=== PATIENT | male | born 1945 | race Caucasian/White ===

== ENCOUNTER 2025-04-29 23:13 | Inpatient (IN) | payer MEDICARE, MEDICAID, SELFPAY ==
--- NOTE | ~2025-04-29 | FL_ITS ---
EXAMINATION: FL GUIDANCE ONLY HISTORY: ERCP COMPARISON: Correlation is made with an MRCP dated 04/30/2025. TECHNIQUE: Fluoroscopy time: 4 minutes, 22 seconds. Cumulative Dose: 52.768 mGy. DAP: 22.953 mGym2 Images: 3. FINDINGS: The initial image demonstrates a wire and contrast material in the common bile duct. There are numerous filling defects within a dilated common bile duct, consistent with the calculi seen on MRI. The final film demonstrates a stent in place. FL/FL guidance in OR IMPRESSION: Fluoroscopy during procedure. Please see procedure report for additional information. Electronically signed by: Darrick Yoder MD 05/04/2025 07:01 AM EDT
--- NOTE | ~2025-04-29 | XR_ITS ---
EXAMINATION: XR LUMBOSACRAL SPINE CLINICAL INFORMATION: low back pain, midline COMPARISON: No prior. Correlation made with CT abdomen and pelvis dated earlier same day. TECHNIQUE: Three views of the lumbosacral spine. FINDINGS: There is a minimal right convex scoliosis. There is a normal lordosis. Minimal superior endplate chronic appearing concavity of L4. No additional compression deformity or acute fracture. No suspicious bone lesion. There appear to have been laminectomies of L4 and L5. Minimal degenerative retrolisthesis L2 on L3 and L3 on L4. There is a 5 mm degenerative anterolisthesis of L5 on S1 with probable pars defects. Severe degenerative disc change at L5-S1 with sclerosis of the endplates. Moderate to severe disc degeneration L2-3, L3-4, and L4-5 with disc vacuum phenomenon. Extensive vascular calcifications are present. No aortic aneurysm. There are herniorrhaphy clips in the pelvis. There is contrast within the urinary bladder. There are right upper quadrant surgical clips. XR/XR lumbar spine 2-3V IMPRESSION: 1. No definite acute abnormality of the lumbar spine. 2. Advanced lumbar spondylosis. 3. There is a grade 1 spondylolisthesis L5-S1. 4. There is a mild chronic compression deformity of the superior endplate of L4. 5. There have been prior laminectomies at L4 and L5. Electronically signed by: Christopher Black MD 04/30/2025 10:47 AM EDT
--- NOTE | ~2025-04-29 | CT_ITS ---
CLINICAL HISTORY: fall, +HS, pain CT head without contrast Comparison: None provided Findings: There is age-appropriate atrophy. The size and shape of the ventricular system is within normal limits for this degree of atrophy. Mild areas of low-attenuation are seen within the periventricular and deep white matter. Salas-white differentiation is preserved. No midline shift or mass effect. No intracranial hemorrhage. No calvarial fractures. Mucosal thickening seen throughout the ethmoid air cells extending into the atelectatic right maxillary sinus. Mild mucosal thickening seen within the right aspect of the sphenoid sinus. IMPRESSION: 1. No fracture or intracranial hemorrhage. 2. Paranasal sinus disease as above. This document has been electronically signed by: Erasmo Rivas MD on 04/30/2025 01:03:42
--- NOTE | ~2025-04-29 | XR_ITS ---
CLINICAL HISTORY: chills, cough Chest X-ray, 2 Views COMPARISON: None provided FINDINGS: Left lower lung atelectasis or infiltrate. No pleural effusion. No pneumothorax. Cardiomegaly. No acute fracture. IMPRESSION: Left lower lung atelectasis or infiltrate. This document has been electronically signed by: Arthur Wilson MD on 04/30/2025 04:09:16
--- NOTE | ~2025-04-29 | CT_ITS ---
CLINICAL HISTORY: fall, +midline pain CT cervical spine without contrast Comparison: None provided Findings: No acute fracture or prevertebral soft tissue swelling. [id number] multilevel degenerative disc disease and degenerative facet disease throughout the cervical spine. Upper airway is patent. Fluid within the right mastoid air cells. Dense vascular calcification of the carotid arteries. No apical pneumothorax. IMPRESSION: No acute findings. This document has been electronically signed by: Erasmo Rivas MD on 04/30/2025 01:09:40
--- NOTE | ~2025-04-29 | US_ITS ---
EXAMINATION: US ABDOMEN LIMITED HISTORY: abn LFTS s/p smiley TECHNIQUE: Real-time grayscale ultrasound imaging of the liver and common bile duct was performed and images were reviewed. COMPARISON: Correlation is made with a CT of the abdomen with contrast 04/30/2025. FINDINGS: Liver: The liver is normal in size. The liver demonstrates increased echotexture, consistent with steatosis. No focal mass is seen. There is moderate intrahepatic biliary ductal dilatation There is normal hepatopedal flow in the portal vein. Gallbladder and biliary tree: The gallbladder is surgically absent. There is dilatation of the common bile duct measuring up to 2.0 cm in diameter. There is soft tissue density within the common bile duct which may represent sludge or a mass. Pancreas: The common bile duct in the region of the pancreatic head is distended with echogenic material. The pancreatic head, neck, and body are otherwise unremarkable. The pancreatic tail is obscured by bowel gas. The visualized pancreatic duct is normal in caliber. US/US abdomen limited IMPRESSION: Intra and extrahepatic biliary ductal dilatation. The common bile duct is distended with echogenic material which may represent sludge or a mass. ERCP is recommended. Electronically signed by: Darrick Yoder MD 04/30/2025 10:27 AM EDT
--- NOTE | ~2025-04-29 | CT_ITS ---
CLINICAL HISTORY: weakness, chills, fever, transaminitis CT abdomen and pelvis with contrast Comparison: None provided Findings: No consolidation or effusion. There are Bosniak 1 right renal cortical cysts, larger measuring 10.8 x 10.3 cm. There is intra and extrahepatic biliary tract dilatation without readily apparent etiology. Clinically appropriate follow-up recommended, possibly with gastroenterology consultation. There are no abnormal findings in the gallbladder fossa. Solid organs are within normal limits. No renal stones. No bowel obstruction, pneumoperitoneum, or pneumatosis. Pelvic contents unremarkable. Normal appendix. The bones are intact. IMPRESSION: Intra and extrahepatic biliary tract dilatation without readily apparent etiology. Clinically appropriate follow-up likely in consultation with gastroenterology, is recommended. This document has been electronically signed by: Gallo Plaza MD on 04/30/2025 07:54:16
--- NOTE | ~2025-04-29 | MR_ITS ---
EXAMINATION: MRCP protocol. CLINICAL INFORMATION: Intra and extrahepatic biliary ductal dilatation. Status post cholecystectomy. Concerning cholangitis. . TECHNIQUE: Axial and coronal T2 haste sequences. Axial and coronal T2 fat-sat haste sequences. Axial in and out of phase 3-D sequences. Coronal oblique T2 fat-sat single slice. MRCP radial T2 fat-sat sequences. COMPARISON: Correlated to ultrasound dated April 30, 2025. CT abdomen pelvis dated April 30, 2025. FINDINGS: Patient's motion artifact. There are numerous, different sizes, predominantly hypointense T2 signal abnormality lesions and some with intrinsic hyperintense T1 signal distributed throughout the dilated intrahepatic and extrahepatic biliary ductal system The maximum caliber of the common bile duct is 21 mm. The main pancreatic duct measures 2 mm in maximum caliber. Liver measures 19 cm. Spleen measures 13 cm. No nodular lesions in the right adrenal gland. There is soft tissue fullness in the left adrenal gland with drop off the signal from the in to the out of phase sequences. No hydronephrosis in either kidney. Multifocal different sizes well-defined round fluid signal characteristic lesions in both kidneys, the largest in the upper pole right kidney measures 13 cm. Hilar hernia, small to moderate size. No ascites. Small fat-containing umbilical hernia. No aneurysm, abdominal aorta. No intestinal obstruction pattern. Multilevel thoracolumbar spondylosis. Grade 1 anterolisthesis L5-S1 resulting in bilateral neuroforamina stenosis. Status post laminectomies from L3-4 to L5-S1 with dural ectasia. MR/MR MRCP IMPRESSION: Choledocholithiasis resulting in moderate to severe intra and extrahepatic biliary ductal dilatation. Bilateral renal cysts. Fat-containing umbilical hernia. No intestinal obstruction pattern. No gross ascites. Electronically signed by: Scooter Pride MD 04/30/2025 01:46 PM EDT
--- NOTE | 2025-04-29 23:16 | ED.FALL ---
HPI - Fall General Chief Complaint: Fall Stated Complaint: Fall, no heads strike/loc Time Seen by Provider: 04/29/25 23:16 Source: patient and EMS Mode of arrival: EMS Limitations: no limitations History of Present Illness ED Provider: Amy Meza NP HPI Narrative: Patient is an 80-year-old male who presents emergency department via EMS for evaluation. He states that this evening he felt as though he might have been a bit dehydrated had urinated prior to felt his urine was a bit dark. He was sitting on a kitchen chair he went to get up to get a glass of water he states that when he sat back down ?the chair came out from under me?. He reportedly fell backwards and towards the right side landing supine onto his back and striking his neck/head onto the corner of a cat litter box. He denies LOC or use of anticoagulants or known coagulation disorders. He does admit that just before this happened he was feeling very tremulous. EMS expressed concern that he was quite pale upon their arrival in significantly weak. He denies any headache, neck pain, dizziness or lightheadedness, chest pain, shortness of breath, nausea, vomiting. He admits to a history of chronic low back pain has had 2 prior surgeries approximately 15 years ago uncertain exactly what was performed, he admits to a history of radiculopathy. Related Data Home Medications ?Medication ?Instructions ?Recorded ?Confirmed acetaminophen 325 mg tablet 325 mg PO Q6H PRN Pain 04/30/25 04/30/25 aspirin 81 mg tablet 81 mg PO DAILY 04/30/25 04/30/25 ibuprofen 200 mg tablet (Advil) 200 mg PO Q8H PRN Pain 04/30/25 04/30/25 multivitamin 1 tab PO DAILY 04/30/25 04/30/25 Allergies Allergy/AdvReac Type Severity Reaction Status Date / Time Penicillins (PENICILLINS) Allergy Severe ANAPHYLAXIS Verified 04/29/25 23:33 penicillin V Allergy Unknown anaphylaxis Verified 04/29/25 23:33 Review of Systems Review of Systems: Yes all other systems are reviewed and are negative PMFSH Past Medical History Attestation statement: The following information was validated with the patient. Source: old records reviewed Social History Social History Household Members: Significant Other Housing: Apartment Do you presently have visiting nurse or other home services: No Alcohol intake: former Patient Tobacco Use Status: Former Tobacco user Advance Directives Date on File: 05/01/25 Physical Exam Vital Signs: Vital Signs: Last Vital Signs Temp 97.2 F 05/01/25 07:45 Pulse 60 05/01/25 07:45 Resp 18 05/01/25 07:45 BP 160/70 H 05/01/25 07:45 Pulse Ox 94 05/01/25 07:45 O2 Del Method Room Air 05/01/25 07:45 BMI result Body Mass Index 31.3 Appearance: Alert.?Oriented to person, place and time. No acute distress.?Normal affect. Head: Normocephalic Eyes: Pupils equal, round and reactive to light. EOMI. Conjunctiva and sclera normal? No Pereira sign noted. No raccoon eyes noted ENT: No septal hematoma, nares patent bilaterally. External auditory canal normal tympanic membrane pearly salas and intact bilaterally. Dentition normal, no fractured teeth. No lesions or lacerations of oropharynx. Uvula midline. Moist mucous membranes. Neck: Normal inspection.? Neck supple, palpable midline tenderness C4-C7 without appreciable step-offs or deformities. CVS: Heart sounds normal. Normal heart rate and rhythm.? Pulses normal.?? Respiratory: No respiratory distress.? Lung sounds clear to auscultation bilaterally?? Abdomen: Soft and non-tender. Normoactive bowel sounds. ?? Skin: Skin warm and dry.? Normal skin color.? Normal skin turgor.?? Extremities: No lower extremity edema.? Neuro: Moves all extremities spontaneously. Sensation intact bilaterally. CN II-XII intact. No focal neuro deficits. Course Reevaluation(s) Reevaluation #1: CBC is without leukocytosis he does however have left shift, has a very mild normocytic anemia that does not meet transfusion criteria, thrombocytopenia 142,000. No lactic acidosis. BNP of 186. Received call for critical troponin of 119.3, no active chest pain or shortness of breath, ECG revealing normal sinus rhythm with ventricular rate of 95, SANDY 204 MS, QTC 422 MS, no ST-elevation, no T-wave inversion. Time: 00:19 Reevaluation #2: head CT is without acute intracranial pathology. There was incidental finding of sinusitis. CT of the cervical spine without acute pathology. Viral serologies are negative. Chemistries have resulted, no electrolyte derangement, no RONNI. Has notable transaminitis with T bili 4.8, pending direct bili, AST/ALT of 257/279 alk-phos is 372 lipase is normal, benign abdominal examination, denies ETOH for many years, will check serum level, obtain CT of the abdomen and pelvis for further evaluation Time: 01:48 Reevaluation #3: Received call from lab regarding critical delta troponin positive at 344.8. Reviewed this with my attending Dr. Arellano will also reviewed EKG. Unlikely secondary to ACS, he denies any chest pain, denies shortness of breath. Repeat ECG revealing a sinus rhythm first-degree AV block SANDY 220 MS, ventricular rate of 85, CBC 442, moves without ST-elevation, T-wave inversion Will obtain 3rd troponin. Fever has resolved. No tachycardia. Pending at this time CXR, CT of the abdomen and pelvis in addition to urinalysis. Chest x-ray concerning possible infiltrate pending radiologist impression Time: 02:41 Additional Reevaluation(s): 02:58 - urinalysis concerning for urinary tract infection, associate microscopic hematuria, nitrite positive, has received levofloxacin. I reviewed CT imaging myself as well as my attending Dr. Mazariegos's, liver with abnormal appearance, concern for possible CBD dilation, I do not it directly appreciate the gallbladder, concern for potential surgical clips present, patient denies any prior abdominal surgeries such as cholecystectomy. He has to right renal cyst, one is pretty significant in size. Bladder appears distended, urinated post CT scan. 04:30 - Notified hopitalist of admission to medicine service, Dr. Ji. My attending Dr. Arellano aware awiting CT AP from radiology at this time Consultations Consultation #1: Attending note, Hussein Mathis MD:[id number], 04/30/2025 I assumed care of this patient at change of shift this morning. The patient had come in last night on the previous shift just before midnight. He had arrived by ambulance after a fall at home. Apparently he fell when he tried to stand up from a chair and then fell backwards. At that point his partner called 911. Apparently earlier in the evening the patient had had a 3 hour episode of shaking chills. His partner had encouraged him to come to the hospital at that time but the patient would not let her call an ambulance. The patient is also complaining of urinary discomfort. He additionally complains of chronic low back pain which he says is just above his sacrum. He says he has had this pain for a year or 2. The patient is evaluation by the previous team revealed the possibility of a UTI and possibly also a pneumonia. He had had a normal white count of 10.7 but a left shift of 95.3% neutrophils. Blood cultures were obtained as was a urine sample. He was treated with 750 mg of IV levofloxacin. Other findings on his workup included a rising troponin level but normal EKGs. He has not had any chest pain at any time. Additionally he was noted to have abnormal LFTs with a total bilirubin of 4.8, direct bilirubin 03.2, AST 257, ALT to 79, and an alk-phos of 372. A CT scan of the abdomen and pelvis was done to evaluate these abnormal LFTs. The results of the CT scan were not available during the overnight shift and therefore this CT scan result was signed out to me. I have looked at the images and it seems as though there are surgical clips in the gallbladder fossa. However the patient denies having had a cholecystectomy or at least has no memory of having a cholecystectomy. On exam he is tender in the right upper quadrant. 0848: Case discussed with the radiologist who read the CAT scan. The patient has evidence of a surgical cholecystectomy. No evidence of choledocholithiasis on CAT scan. Case discussed with Dr. Silva of Gastroenterology. We will order an ultrasound as the next step. Case presented to the hospitalist service and the patient will be admitted to telemetry because of the elevated troponins. I think the elevated troponins are secondary to the patient's other conditions. His EKGs are unremarkable and he has no chest pain. Medications Administered Generic Name Dose Route Start Last Admin Trade Name Freq PRN Reason Stop Dose Admin Aspirin 81 mg 04/30/25 11:25 05/01/25 08:39 Aspirin 81 Mg Tab.Chew PO 81 mg DAILY COLIN Administration Heparin Sodium (Porcine) 4,000 unit 04/30/25 10:34 05/01/25 01:23 Heparin Sodium,Porcine 5,000 Unit/Ml Vial 40 unit/kg (4000 unit) 4,000 unit IVPUSH Administration PROTOCOL BOLUS PRN 40 unit/kg - Heparin Protocol Protocol Lactated Ringer's 1,000 mls @ 100 mls/hr 04/30/25 09:15 05/01/25 08:39 Lr IVCONT 100 mls/hr .Q10H COLIN Administration Levofloxacin 750 mg in 150 mls @ 100 mls/hr 04/30/25 23:30 05/01/25 03:42 Levaquin IV Infused Q24H COLIN Infusion Metronidazole 500 mg in 100 mls @ 100 mls/hr 04/30/25 15:00 05/01/25 08:21 Flagyl IV Infused Q8H COLIN Infusion Heparin Sodium/Sodium Chloride 25,000 unit in 250 mls @ 0 mls/hr 04/30/25 10:45 05/01/25 08:47 Heparin Sodium,Porcine/1/2ns IVCONT 12.11 units/kg/hr .Q0M COLIN 11.97 mls/hr Protocol Administration Per Protocol Multivitamins/Vitamin C 1 tab 05/01/25 09:00 05/01/25 08:39 Multivitamin Tablet PO 1 tab DAILY COLIN Administration Sodium Chloride 3 ml 04/30/25 16:00 05/01/25 07:56 0.9 % Sodium Chloride Flush 3 Ml Syringe IVFLUSH Not Given QSHIFT COLIN Discontinued Medications Generic Name Dose Route Start Last Admin Trade Name Freq PRN Reason Stop Dose Admin Acetaminophen 975 mg 04/29/25 23:30 04/29/25 23:50 Acetaminophen 325 Mg Tablet PO 04/29/25 23:31 975 mg ONCE ONE Administration Enoxaparin Sodium 40 mg 04/30/25 09:15 04/30/25 09:27 Enoxaparin Sodium 40 Mg/0.4 Ml Syringe SUBCUT 40 mg Q24H COLIN Administration Heparin Sodium (Porcine) 4,000 unit 04/30/25 10:34 04/30/25 12:14 Heparin Sodium,Porcine 5,000 Unit/Ml Vial IVPUSH 04/30/25 10:35 4,000 unit ONCE ONE Administration Sodium Chloride 2,190 mls @ 2,190 mls/hr 04/29/25 23:34 04/30/25 02:06 Ns IV 04/30/25 00:33 Infused .Q1H STA Infusion Levofloxacin 750 mg in 150 mls @ 100 mls/hr 04/29/25 23:36 04/30/25 01:35 Levaquin IV 04/30/25 01:05 Infused ONCE ONE Infusion Metronidazole 500 mg in 100 mls @ 100 mls/hr 04/30/25 07:43 04/30/25 09:26 Flagyl IV 04/30/25 08:42 Infused ONCE ONE Infusion Iohexol 85 ml 04/30/25 02:57 04/30/25 02:57 Iohexol 350 Mg/Ml 100 Ml Infus..Btl IV 04/30/25 02:58 85 ml ONCE ONE Administration Metoprolol Tartrate 50 mg 04/30/25 10:37 04/30/25 12:14 Metoprolol Tartrate 50 Mg Tablet PO 04/30/25 10:38 50 mg ONCE ONE Administration Protocol Medical Decision Making Medical Decision Making [facility] Narrative: Patient is an 80-year-old male with reported past medical history of chronic low back pain, radiculopathy, hypertension who presents emergency department for evaluation after a reportedly mechanical fall as per HPI. However he was tremulous prior to its onset felt as though he may have been dehydrated. On arrival to emergency department he is warmth to the touch, tachycardic, he is non diaphoretic. Although he denied any headache or neck pain, on physical examination he did have midline tenderness C4-C7 without appreciable step-offs or deformities. He was placed in a hard cervical spine collar at this time. Plan to obtain CT of the head and cervical spine to exclude ICH, SDH, skull fracture, cervical spine fracture/subluxation. Sepsis alert was called at 23: 30 as he is febrile and tachycardic concern for potentially genitourinary etiology, though denies overt has a your symptoms he has ongoing back pain, he has a cigarette smoker admits to a chronic cough without acute change, potentially could be respiratory in nature, may have undiagnosed COPD no use of inhalers. Abdominal examination is benign. Sepsis fluid bolus ordered based on ideal body weight secondary to obesity, . Antibiotic coverage with Levaquin. I received sign-out from my colleague GORDON Meza -patient's troponins has gradually been getting elevated. Patient states that he has no chest pain or shortness of breath at all. No significant EKG changes from arrival. There are no previous EKGs for comparison. Also, on patient's labs, patient has elevated LFTs. The CT scan of his abdomen shows surgical clips. Patient is adamant that he has no history of cholecystectomy, radiology report of the abdomen pending. Chest x-ray from earlier today shows left lower lobe atelectasis or infiltrate, for which she was already covered with Levaquin. Also, patient has a UTI, Levaquin will cover for UTI as well. Patient's blood pressure stable, 159/74. Pulse 84, no fever. 98.6. At this time, 07:00, CT scan radiology report is still pending. Sign-out given to my colleague Dr. aMthis Differential Diagnosis Differential Diagnoses: The differential diagnosis associated with the presentation includes (See narrative above) Admission/Observation Consideration of admission/observation: Escalation of care including admission/observation considered (See narrative above) Lab Data MDM Lab Attestation statement: I reviewed the patient's lab results. 05/01/25 06:25 05/01/25 06:25 Labs: Lab Results 04/29/25 04/30/25 04/30/25 Range/Units 23:44 00:01 02:03 WBC 10.7 (4.8-10.8) X10*3/uL RBC 4.06 L (4.60-5.80) X10*6/uL Hgb 13.0 L (14.0-18.0) g/dl Hct 37.3 L (42.0-52.0) % MCV 91.9 (80.0-98.0) fL MCH 32.0 (27.0-33.0) pg MCHC 34.9 (31.0-36.0) g/dl RDW 13.3 (11.0-16.0) % Plt Count 142 L (160-400) X10*3/uL MPV 10.3 (9.4-12.4) fL Immature Gran % (Auto) 0.3 (0.0-0.4) % Neut % (Auto) 95.3 H (45-73) % Lymph % (Auto) 2.4 L (20-40) % [place] % (Auto) 1.7 L (2-11) % Eos % (Auto) 0.1 (0-4) % Baso % (Auto) 0.2 (0-2) % Lymph # (Auto) 0.3 L (1.2-4.9) X10*3/uL [place] # (Auto) 0.2 (0.1-1.2) X10*3/uL Eos # (Auto) 0.0 (0.0-0.4) X10*3/uL Baso # (Auto) 0.0 (0.0-0.2) X10*3/uL Abs Immat Gran (auto) 0.03 (0.00-0.03) X10*3/uL Absolute Neuts (auto) 10.2 H (2.0-8.3) x10*3/uL Absolute Nucleated RBC 0.000 (0.0-0.012) X10*3/uL Nucleated RBC % (auto) 0.0 (0.0-0.2) /100WBC Smear Tech's Comments VERIFIED PT 13.5 H (10.9-12.4) SEC INR 1.2 H (0.9-1.1) Sodium 135 (135-145) mmol/L Potassium 4.2 (3.3-5.1) mmol/L Chloride 103 (96-108) mmol/L Carbon Dioxide 24 (22-29) mmol/L Anion Gap 12 (12-20) BUN 19 H (9-16) mg/dL Creatinine 0.87 (0.5-1.4) mg/dL Estim Creat Clear Calc 79.8 Estimated GFR > 60 Random Glucose 137 H (60-115) mg/dL Lactic Acid 1.7 (0.5-2.0) mmol/L Calcium 9.1 (8.4-10.2) mg/dL Magnesium 1.7 (1.6-2.6) mg/dL Total Bilirubin 4.8 H (0.0-1.0) mg/dL Direct Bilirubin 3.2 H (0.0-0.5) mg/dL AST 257 H (5-37) U/L ALT 279 H (0-40) U/L Alkaline Phosphatase 372 H (39-117) U/L Total Creatine Kinase (38-174) U/L Troponin I High Sens 119.3 H* 344.8 H* D (<3.5-35.0) ng/L C-Reactive Protein 4.46 H (< or = 0.50) mg/dL B-Natriuretic Peptide 186 H (<100) pg/mL Total Protein 6.6 (6.5-8.0) g/dL Albumin 3.7 (3.5-5.0) g/dL Lipase 17 (8-78) U/L Urine Color Urine Appearance Urine pH (5.0-9.0) Ur Specific [place] (1.005-1.025) Urine Protein (Neg-Trace) mg/dL Urine Glucose (UA) (Negative) mg/dL Urine Ketones (Negative) mg/dL Urine Blood (Negative) Urine Nitrite (Negative) Ur Leukocyte Esterase (Negative) Urine RBC (0-2) /HPF Urine WBC (0-5) /HPF Ur Squamous Epith Cells (0-2) /HPF Urine Bacteria (None Seen) Hyaline Casts (0-2) /LPF Ethyl Alcohol < 10 mg/dL Influenza Type A (PCR) NEGATIVE (Negative) Influenza Type B (PCR) NEGATIVE (Negative) RSV RNA Qual (PCR) NEGATIVE (Negative) SARS-CoV-2 RNA (RT-PCR) NEGATIVE (Negative) 04/30/25 04/30/25 Range/Units 02:36 04:18 WBC (4.8-10.8) X10*3/uL RBC (4.60-5.80) X10*6/uL Hgb (14.0-18.0) g/dl Hct (42.0-52.0) % MCV (80.0-98.0) fL MCH (27.0-33.0) pg MCHC (31.0-36.0) g/dl RDW (11.0-16.0) % Plt Count (160-400) X10*3/uL MPV (9.4-12.4) fL Immature Gran % (Auto) (0.0-0.4) % Neut % (Auto) (45-73) % Lymph % (Auto) (20-40) % [place] % (Auto) (2-11) % Eos % (Auto) (0-4) % Baso % (Auto) (0-2) % Lymph # (Auto) (1.2-4.9) X10*3/uL [place] # (Auto) (0.1-1.2) X10*3/uL Eos # (Auto) (0.0-0.4) X10*3/uL Baso # (Auto) (0.0-0.2) X10*3/uL Abs Immat Gran (auto) (0.00-0.03) X10*3/uL Absolute Neuts (auto) (2.0-8.3) x10*3/uL Absolute Nucleated RBC (0.0-0.012) X10*3/uL Nucleated RBC % (auto) (0.0-0.2) /100WBC Smear Tech's Comments PT (10.9-12.4) SEC INR (0.9-1.1) Sodium (135-145) mmol/L Potassium (3.3-5.1) mmol/L Chloride (96-108) mmol/L Carbon Dioxide (22-29) mmol/L Anion Gap (12-20) BUN (9-16) mg/dL Creatinine (0.5-1.4) mg/dL Estim Creat Clear Calc Estimated GFR Random Glucose (60-115) mg/dL Lactic Acid (0.5-2.0) mmol/L Calcium (8.4-10.2) mg/dL Magnesium (1.6-2.6) mg/dL Total Bilirubin (0.0-1.0) mg/dL Direct Bilirubin (0.0-0.5) mg/dL AST (5-37) U/L ALT (0-40) U/L Alkaline Phosphatase (39-117) U/L Total Creatine Kinase 94 (38-174) U/L Troponin I High Sens 439.8 H* (<3.5-35.0) ng/L C-Reactive Protein (< or = 0.50) mg/dL B-Natriuretic Peptide (<100) pg/mL Total Protein (6.5-8.0) g/dL Albumin (3.5-5.0) g/dL Lipase (8-78) U/L Urine Color Dark Yellow Urine Appearance Clear Urine pH 5.5 (5.0-9.0) Ur Specific [place] 1.025 (1.005-1.025) Urine Protein 30 (1+) H (Neg-Trace) mg/dL Urine Glucose (UA) Negative (Negative) mg/dL Urine Ketones Negative (Negative) mg/dL Urine Blood Large (3+) H (Negative) Urine Nitrite Positive H (Negative) Ur Leukocyte Esterase Small (1+) H (Negative) Urine RBC 11-20 H (0-2) /HPF Urine WBC 0-5 (0-5) /HPF Ur Squamous Epith Cells 3-5 (0-2) /HPF Urine Bacteria 1+ (None Seen) Hyaline Casts 0-2 (0-2) /LPF Ethyl Alcohol mg/dL Influenza Type A (PCR) (Negative) Influenza Type B (PCR) (Negative) RSV RNA Qual (PCR) (Negative) SARS-CoV-2 RNA (RT-PCR) (Negative) Independent Interpretation I performed an independent interpretation of an: EKG, Plain X-Ray and CT Scan (See course narrative) Radiology Impression Discussion of test interpretation with radiology: I have reviewed the radiologist's reading. Radiologist Impression: CT head without contrast Comparison: None provided Findings: There is age-appropriate atrophy. The size and shape of the ventricular system is within normal limits for this degree of atrophy. Mild areas of low-attenuation are seen within the periventricular and deep white matter. Salas-white differentiation is preserved. No midline shift or mass effect. No intracranial hemorrhage. No calvarial fractures. Mucosal thickening seen throughout the ethmoid air cells extending into the atelectatic right maxillary sinus. Mild mucosal thickening seen within the right aspect of the sphenoid sinus. IMPRESSION: 1. No fracture or intracranial hemorrhage. 2. Paranasal sinus disease as above. CT cervical spine without contrast Comparison: None provided Findings: No acute fracture or prevertebral soft tissue swelling. [id number] multilevel degenerative disc disease and degenerative facet disease throughout the cervical spine. Upper airway is patent. Fluid within the right mastoid air cells. Dense vascular calcification of the carotid arteries. No apical pneumothorax. IMPRESSION: No acute findings. Chest X-ray, 2 Views COMPARISON: None provided FINDINGS: Left lower lung atelectasis or infiltrate. No pleural effusion. No pneumothorax. Cardiomegaly. No acute fracture. IMPRESSION: Left lower lung atelectasis or infiltrate. Independent Historian Clinical information obtained from an independent historian. History obtained from or confirmed by: EMS Critical Care Time Critical Care Time Critical Care Time: Yes Total Critical Care Time: 60 Attestation: Time is exclusive of separately billable procedures. Time includes: direct patient care, patient reassessment, coordination of patient care, interpretation of data (laboratory data, pulse oximetry, CT abdomen and pelvis and chest xrays), review of patient's medical records, medical consultation and documentation of patient care. Procedures excluded from critical care time: central intravenous line placement and electrocardiography. Discharge Plan Discharge Clinical Impression: Acute cholangitis, Urinary tract infection, S/P cholecystectomy, Elevated troponin Patient Disposition: Admitted As Inpatient Interventions: Admission Worksheet (ED) Last Done: 04/30/25 14:50 Discharge Date/Time: 05/01/25 03:49
[2025-04-29 23:17] VITALS: BP 168/92; PULSE 110; O2SAT 96
[2025-04-29 23:30] VITALS: BP 146/53; PULSE 103; RESP 20; TEMP 39.2; O2SAT 100; BMI 31.3
--- NOTE | 2025-04-29 23:30 | ECG_ITS ---
Test Reason : tachycardia Blood Pressure : */* mmHG Vent. Rate : 95 BPM Atrial Rate : 95 BPM P-R Int : 204 ms QRS Dur : 106 ms QT Int : 336 ms P-R-T Axes : -17 -56 25 degrees QTcB Int : 422 ms Normal sinus rhythm Left anterior fascicular block Minimal voltage criteria for LVH, may be normal variant ( Carmelo product ) Abnormal ECG No previous ECGs available Referred By: Amy Meza Electronically Signed By: KARTHIK ACOSTA
[2025-04-29 23:51] LABS: Hematocrit 37.3 % (42.0-52.0); Hemoglobin 13.0 g/dl (14.0-18.0); Imm Gran Abs Auto 0.03 X10*3/uL (0.00-0.03); Imm Gran Pct Auto 0.3 % (0.0-0.4); Lymphocytes Absolute Auto 0.3 X10*3/uL (1.2-4.9); MANUAL DIFF FLAG SCAN; Mean Corpuscular HGB Conc 34.9 g/dl (31.0-36.0); Mean Corpuscular Hemoglobin 32.0 pg (27.0-33.0); Mean Corpuscular Volume 91.9 fL (80.0-98.0); NRBC Abs Auto 0.000 X10*3/uL (0.0-0.012); NRBC Pct Auto 0.0 /100WBC (0.0-0.2); Platelet Count 142 X10*3/uL (160-400); Red Blood Count 4.06 X10*6/uL (4.60-5.80); SCAN SMEAR FLAG 1; White Blood Count 10.7 X10*3/uL (4.8-10.8)
[2025-04-30] VITALS (17 sets, daily range): BP systolic 131–177; BP diastolic 48–75; PULSE 52–89; RESP 14–21; TEMP 36.2–37.9; O2SAT 93–98; BMI 30.9
[2025-04-30 00:01] LABS: INTERNATIONAL NORM RATIO 1.2 (0.9-1.1); Prothrombin Time 13.5 SEC (10.9-12.4)
[2025-04-30 00:15] LABS: B Type Natriuretic Peptide 186 pg/mL (<100)
[2025-04-30 00:22] LABS: Troponin-I High Sensitivity 119.3 ng/L (<3.5-35.0)
[2025-04-30 00:47] LABS: Resp Syncy Virus RNA Qual PCR NEGATIVE (Negative); SARS COV2 PCR INHOUSE NEGATIVE (Negative)
[2025-04-30 01:16] LABS: Alanine Aminotransferase 279 U/L (0-40); Albumin Level 3.7 g/dL (3.5-5.0); Alkaline Phosphatase 372 U/L (39-117); Anion Gap 12 (12-20); Aspartate Amino Transferase 257 U/L (5-37); Blood Urea Nitrogen 19 mg/dL (9-16); Carbon Dioxide 24 mmol/L (22-29); Chloride 103 mmol/L (96-108); Creatinine Clr Calc Pharmacy 79.8; Estimated Glomerular Filt Rate > 60; Lipase 17 U/L (8-78); Magnesium 1.7 mg/dL (1.6-2.6); Potassium 4.2 mmol/L (3.3-5.1); Sodium 135 mmol/L (135-145); Total Protein 6.6 g/dL (6.5-8.0)
[2025-04-30 01:23] LABS: Calcium 9.1 mg/dL (8.4-10.2)
[2025-04-30 02:37] LABS: Troponin-I High Sensitivity 344.8 ng/L (<3.5-35.0)
--- NOTE | 2025-04-30 02:40 | ECG_ITS ---
Test Reason : ELEVATED TROP Blood Pressure : */* mmHG Vent. Rate : 85 BPM Atrial Rate : 85 BPM P-R Int : 228 ms QRS Dur : 112 ms QT Int : 372 ms P-R-T Axes : 8 -32 35 degrees QTcB Int : 442 ms Sinus rhythm with 1st degree A-V block Possible Left atrial enlargement Left axis deviation Minimal voltage criteria for LVH, may be normal variant ( [place] product ) Abnormal ECG When compared with ECG of 29-Apr-2025 23:41, No significant change was found Referred By: Amy Meza Electronically Signed By: KARTHIK ACOSTA
[2025-04-30 02:46] LABS: Appearance Urine Clear; Glucose Urine UA Negative (Negative); PH 5.5 (5.0-9.0); Specific Gravity - Urine 1.025 (1.005-1.025); UMIC TRIGGER UACC YES
[2025-04-30] MEDS: iohexoL 350 MG/ML 100 ML INFUS..BTL 85 ML IV (02:57)
[2025-04-30 03:58] LABS: UACC Culture Trigger YES
[2025-04-30 04:54] LABS: Troponin-I High Sensitivity 439.8 ng/L (<3.5-35.0)
--- NOTE | 2025-04-30 06:32 | PC.NURSE ---
Patient BIBA for s/p fall evaluation with + head strike, no LOC, patient is not on blood thinners, fever, feeling dehydrated with dark, concentrated urine. On arrival to ED patient noted to have oral temp of 102.5 and tachy with hr 103. Patient refused c-collar for EMS, [facility], ED provider evaluated, explained to patient importance of neck immobilization with c-collar s/p post fall with head strike and risks. Patient agreeable with c-collar placement, c-collar applied by tghis expert medical writer. 20 G IV line establlished in L AC. Sepsis protocol initiated, labs drawn and revealed BNP of 186, critical troponin of 119.3, no active chest pain or shortness of breath, EKG with NSR, HR 95. Septic fluids of total of 2190 mL and Levofloxacin 750 mg IV completed, VSS. Repeat trop 344.8. Patient confines to deny chest pain/SOB. EKG completed at this time with no ischemic changes noted, HR 97. O2 Sat 97% RA. Urine sample collected and positive for UTI. CT scan of abdomen/pelvis completed, resport pending. Patient currently resting in stretcher bed, VSS, NSR on tower excavator operator [id number], no complaints of chest ,call isaac in reach, significant other at bedside.
--- NOTE | 2025-04-30 07:00 | CA_ITS ---
Transthoracic Echocardiogram Patient (Last, First, Middle): Bismark Holland, Gender: Male Date of : 1945 Age: 80 Procedure Date: 04/30/2025 Procedure Type: Transthoracic Echocardiogram Location: ER Height: 177.8 cm Weight: 98.88 kg BSA: 2.17 m2 Heart Rate: bpm BP: 177 / 72 mmHg Gear Repairer: TO Referring MD: Kimani Vazquez MD Symptoms: elevated troponin, to eval for rwma Study Quality: Fair/Contrast ECG Rhythm: Sinus Conclusions: - The left ventricular systolic function is low normal. The visually estimated ejection fraction is between 50-55%. - There is mild to moderate aortic valve regurgitation. - There is mild dilatation of the sinuses of Valsalva measuring 4.29 cm and mild dilatation of the ascending aorta measuring 4.00 cm. Findings Procedure Information Contrast agent, definity, is being given per protocol without apparent complications. Left Ventricle Mildly increased left ventricular cavity size. The left ventricular systolic function is low normal. The visually estimated ejection fraction is between 50-55%. There is no evidence of regional wall motion abnormalities. Diastolic function is normal for age. There is mild septal asymmetric hypertrophy. Right Ventricle Normal right ventricular cavity size and systolic function. Atria The left atrium is moderately dilated. The right atrium is normal in size. Aortic Valve There is a normal trileaflet aortic valve. There is mild calcification of the aortic valve. There is no aortic valve stenosis. There is mild to moderate aortic valve regurgitation. Mitral Valve There is mild mitral annular calcification. There is no mitral valve regurgitation. There is no mitral valve stenosis. Pulmonic Valve The pulmonic valve is likely normal. Tricuspid Valve There is no tricuspid valve regurgitation. Tricuspid regurgitation envelope is inadequate for calculation of right ventricular systolic pressure. Great Vessels There is mild dilatation of the sinuses of Valsalva measuring 4.29 cm and mild dilatation of the ascending aorta measuring 4.00 cm. Venous The inferior vena cava is normal in size and collapses greater than 50% with inspiration. Pericardium/Pleural There is no evidence of pericardial effusion. Prior Study Comparison No prior study available for comparison. Measurements 2D Linear Measurements IVSd: 1.13 0.6-0.9/0.6-1.0 cm LVIDd: 5.77 3.9-5.3/4.2-5.9 cm LVIDd Index: 2.66 2.4-3.2/2.2-3.1 cm/m2 LVIDs: 4.32 2.0-3.6 cm LVPWd: 0.96 0.7-1.1 cm LV Mass: 304.26 67-162/88-224 g LV Mass Index: 140.21 43-95/49-115 g/m2 LVOT Diam: 2.40 3.0+(-)1.3 cm 2D Systolic Function EF 4C: 40.10 >55% EF 2C: 44.60 >55% Mitral Valve MV Pk E: 0.41 MV PK A: 0.63 MV Decel Time: 279.00 E/A: 0.70 E'Lateral: 5.11 E'Medial: 5.00 E/E' Med: 8.10 E/E' Lat: 8.00 PHT: 82.00 MVA PHT: 2.68 Decel Ponce: 1.46 Aortic Valve AoV Pk Faisal: 1.91 AoV Mn Faisal: 1.25 AoV VTI: 0.37 AoV Pk Grad: 15.00 Aov Mn Grad: 7.00 PAM Cont.VTI: 2.93 AI Pk Faisal: 4.12 AI Ponce: 2.51 LVOT LVOT Pk Faisal: 1.01 LVOT Mn Faisal: 0.71 LVOT VTI: 0.24 LVOT Pk Grad: 4.00 LVOT Mn Grad: 2.00 LVOT Diam: 2.40 LVOT Area: 4.52 Diastolic Function MV Pk E: 0.41 MV Pk A: 0.63 E/A: 0.70 E'Medial: 5.00 E/E' Med: 8.10 E' Laterial: 5.11 E/E' Lat: 8.00 Right Ventricle TAPSE (mm): 27.00 TVS' Faisal: 15.00 Tricuspid Valve RA Press: 8.00 Great Vessels Aorta Sinus of Valsalva: 4.29 2.0-3.5 cm Ao Asc: 4.00 2.1-3.4 cm Updated in Other Vendor System with Status of Final Delfino Arguello MD electronically signed on 04/30/2025 12:41:08 PM with status of Final
--- NOTE | 2025-04-30 07:24 | PC.NURSE ---
Assumed care of pt approx 0700, resting comfortably in bed. Reports chronic back pain 02/11, denies any interventions at this time. at bedside, abdominal CT results pending.
[2025-04-30] MEDS: metroNIDAZOLE/NS 500 MG/100 ML PIGGYBACK 100 MG IV ×3 (08:15→22:28)
--- NOTE | 2025-04-30 09:10 | PM.IMHP ---
History of Present Illness Date of Service: 04/30/25 Chief Complaint: fall, chills The patient is a 80-year-old male who denies any significant past medical history and presents to the emergency room with what appears to be a mechanical fall. The patient states that after ambulating back from the bathroom while attempting to sit, his chair gave out and he fell backwards striking his back, head/neck. He denies any loss of consciousness. He denies any prodromal cardiac symptoms. Upon further questioning, the patient endorses chills on the evening prior to hospitalization. He reports chronic urinary frequency/urgency and denies any change. He reports feeling uneasy/queasy but denies any abdominal pain. He denies any diarrhea nausea or vomiting. He denies any prior history of cholecystectomy. He denies any history of heavy alcohol use, reporting that he has not drank in years. He denies any chest pain, shortness of breath. He denies any headache or neck pain. He does report lower back pain. In the emergency room his workup revealed the following: Chemistry showed obstructive jaundice with a total bilirubin of 4.8, AST 257, ALT 279, alk phos 372, INR 1.2; CBC showed no leukocytosis but he does have a left shift and bandemia. His troponins are elevated with initial value of 119 > 344 > 439; EKG without any acute ischemic changes; patient denying any anginal symptoms The patient was treated with the sepsis fluid bolus, IV Levaquin and IV Flagyl; the ED team has discussed his case with Gastroenterology. The patient will be admitted for further work up and treatment. Review of Systems Review of Systems: Negative except HPI/interval history. [facility] Social History Alcohol intake: former Smoked in Last 30 Days: Yes Use of substances other than those prescribed or required for medical reasons: No Advance Directives: Yes Advance Directives Information Provided: Yes Advance Directives on File: No Meds Allergies Allergy/AdvReac Type Severity Reaction Status Date / Time Penicillins (PENICILLINS) Allergy Severe ANAPHYLAXIS Verified 04/29/25 23:33 penicillin V Allergy Unknown anaphylaxis Verified 04/29/25 23:33 Active Medications: Current Medications Acetaminophen (Acetaminophen 325 Mg Tablet) 650 mg PO Q6H PRN PRN Reason: Pain, Mild 1-3,fever,headache Calcium Carbonate (Calcium Carbonate 750 Mg Tab.Chew) 750 mg PO Q4H PRN PRN Reason: Heartburn Enoxaparin Sodium (Enoxaparin Sodium 40 Mg/0.4 Ml Syringe) 40 mg SUBCUT Q24H [facility] Lactated Ringer's (Lr) 1,000 mls @ 100 mls/hr IVCONT .Q10H [place] Levofloxacin (Levaquin) 750 mg in 150 mls @ 100 mls/hr IV Q24H [facility] Metronidazole (Flagyl) 500 mg in 100 mls @ 100 mls/hr IV Q8H [facility] Magnesium Hydroxide (Milk Of Magnesia 30 Ml Oral.Susp) 30 ml PO DAILY PRN PRN Reason: Constipation Melatonin (Melatonin 3 Mg Tablet) 6 mg PO BEDTIME PRN PRN Reason: Insomnia Sodium Chloride (0.9 % Sodium Chloride Flush 3 Ml Syringe) 3 ml IVFLUSH QSHIFT [facility] Home Medications ?Medication ?Instructions ?Recorded ?Confirmed ?Last Taken ?Type acetaminophen 325 mg tablet 325 mg PO Q6H PRN Pain 04/30/25 04/30/25 Unknown History aspirin 81 mg tablet 81 mg PO DAILY 04/30/25 04/30/25 Unknown History ibuprofen 200 mg tablet (Advil) 200 mg PO Q8H PRN Pain 04/30/25 04/30/25 Unknown History multivitamin 1 tab PO DAILY 04/30/25 04/30/25 Unknown History Physical Exam Vital Signs and Narrative: Vital Signs: Last Vital Signs Temp 97.8 F 04/30/25 08:19 Pulse 68 04/30/25 08:19 Resp 16 04/30/25 08:19 BP 177/72 H 04/30/25 08:19 Pulse Ox 97 04/30/25 08:19 O2 Del Method Room Air 04/30/25 08:19 BMI result Body Mass Index 31.3 Const: Other: Constitutional - Awake and Alert, No apparent distress HEENT - PERRLA, EOMI, +scaleral icterus Cardiovascular - S1S2, RRR, No edema Respiratory - Normal lung expansion, Normal respiratory effort, No respiratory distress, CTA bilaterally Gastrointestinal - RUQ TTP without rebound;guarding - No CVA tenderness Extremities - no calf tenderness bilaterally, no swelling Musculoskeletal - TTP lumbar spine Skin - Warm/Dry; jaundiced Neurological - Alert & oriented x3, No focal deficit; no asterixis Psychological - Appropriate affect Results Labs 04/29/25 23:44 04/29/25 23:44 Labs: Laboratory Results - last 24 hr 04/29/25 04/30/25 04/30/25 23:44 00:01 02:03 MCV 91.9 MCH 32.0 MCHC 34.9 RDW 13.3 Plt Count 142 L MPV 10.3 Immature Gran % (Auto) 0.3 Neut % (Auto) 95.3 H Lymph % (Auto) 2.4 L [place] % (Auto) 1.7 L Eos % (Auto) 0.1 Baso % (Auto) 0.2 Lymph # (Auto) 0.3 L [place] # (Auto) 0.2 Eos # (Auto) 0.0 Baso # (Auto) 0.0 Abs Immat Gran (auto) 0.03 Absolute Neuts (auto) 10.2 H Absolute Nucleated RBC 0.000 Nucleated RBC % (auto) 0.0 Smear Tech's Comments VERIFIED PT 13.5 H INR 1.2 H Anion Gap 12 Estim Creat Clear Calc 79.8 Estimated GFR > 60 Random Glucose 137 H Lactic Acid 1.7 Calcium 9.1 Magnesium 1.7 Total Bilirubin 4.8 H Direct Bilirubin 3.2 H AST 257 H ALT 279 H Alkaline Phosphatase 372 H Total Creatine Kinase Troponin I High Sens 119.3 H* 344.8 H* D C-Reactive Protein 4.46 H B-Natriuretic Peptide 186 H Total Protein 6.6 Albumin 3.7 Lipase 17 Urine Color Urine Appearance Urine pH Ur Specific [place] Urine Protein Urine Glucose (UA) Urine Ketones Urine Blood Urine Nitrite Ur Leukocyte Esterase Urine RBC Urine WBC Ur Squamous Epith Cells Urine Bacteria Hyaline Casts Ethyl Alcohol < 10 Influenza Type A (PCR) NEGATIVE Influenza Type B (PCR) NEGATIVE RSV RNA Qual (PCR) NEGATIVE SARS-CoV-2 RNA (RT-PCR) NEGATIVE 04/30/25 04/30/25 02:36 04:18 MCV MCH MCHC RDW Plt Count MPV Immature Gran % (Auto) Neut % (Auto) Lymph % (Auto) [place] % (Auto) Eos % (Auto) Baso % (Auto) Lymph # (Auto) [place] # (Auto) Eos # (Auto) Baso # (Auto) Abs Immat Gran (auto) Absolute Neuts (auto) Absolute Nucleated RBC Nucleated RBC % (auto) Smear Tech's Comments PT INR Anion Gap Estim Creat Clear Calc Estimated GFR Random Glucose Lactic Acid Calcium Magnesium Total Bilirubin Direct Bilirubin AST ALT Alkaline Phosphatase Total Creatine Kinase 94 Troponin I High Sens 439.8 H* C-Reactive Protein B-Natriuretic Peptide Total Protein Albumin Lipase Urine Color Dark Yellow Urine Appearance Clear Urine pH 5.5 Ur Specific [place] 1.025 Urine Protein 30 (1+) H Urine Glucose (UA) Negative Urine Ketones Negative Urine Blood Large (3+) H Urine Nitrite Positive H Ur Leukocyte Esterase Small (1+) H Urine RBC 11-20 H Urine WBC 0-5 Ur Squamous Epith Cells 3-5 Urine Bacteria 1+ Hyaline Casts 0-2 Ethyl Alcohol Influenza Type A (PCR) Influenza Type B (PCR) RSV RNA Qual (PCR) SARS-CoV-2 RNA (RT-PCR) Assessment and Plan (1) Acute cholangitis: Status: Acute Plan 80 yo M who reports no chronic medical issue (on baby asa + MVI only) who presents after a mechanical fall, preceed by shaking chills. Work up in the ED is consistent with sepsis secondary to cholangitis + demand ischemia. 1. Severe Sepsis secondary to cholangitis (has RUQ pain, jaundice and fever) Meets sepsis criteria with Bandemia, fevers, tachycardia; severe features of hyperbilirubinemia IV levaquin/flagyl (PCN allergy - anaphylaxis documented) follow up cultures suspect will need MRCP/ERCP - d/w GI, recs for MRCP consult GI NPO for now IVF 2. Elevated trops likely type 2 PA from demand ischemia will check echo monitor on tele consult cardiology pt denying chest pain d/w cardiology and GI - will start IV heparin gtt (plan for ERCP Saturday), metoprolol, statin on hold, asa okay per GI 3. Elevated BP denies history of HTN; outpt notes from 2020 indicate he was on norvasc/hctz likely secondary to acute pain/illness monitor for now Full Code (d/w code status is patient and significant other) Endorses significant other has HCP (to complete formally with workers' compensation hearings officer/CM) DVT pptx - Lovenox Quality Stroke Does the patient have a stroke diagnosis?: No VTE Prior VTE?: No VTE Risk Level:: Medical - moderate - high VTE Device Contraindication: N/A - Device Ordered VTE Drug Contraindication: N/A - Med Ordered
[2025-04-30] MEDS: Lactated Ringers 1,000 ML 100 ML IVCONT ×2 (09:27→19:52)
--- NOTE | 2025-04-30 10:17 | PM.CNCAR ---
History of Present Illness History of Present Illness Date of Service: 04/30/25 Chief complaint: ? Cholangitis Narrative: This is a cardiology consultation regarding elevated troponins. Per admission documentation, reported as it came for a fall. It is mentioned that he was ambulating from the bathroom when attempting to sit, his Mitchell gave out and he fell backward striking his back and head and neck. Upon questioning him directly, he states that the main concern he had was that he was shaking constantly for almost 3 hours. Seems like he is describing rigors. When he 1st came in his temperature was quite high at over 102 degrees F. then it has improved. He has been evaluated and found to have obstructive jaundice and GI has been involved in his care. From the cardiac standpoint, troponins were checked and found to be elevated. Hence we are consulted. Patient denies any previous cardiac history. He denies any chest pains. He states that he lives in a 2nd floor hence can go up and down and has not had any issues like angina. Review of Systems Review of Systems: Yes all other systems are reviewed and are negative Constitutional: Constitutional: Reports as per HPI, Reports no additional constitutional complaints and Reports fever(s) Eyes: Eyes: Reports as per HPI and Denies no additional eye complaints ENT: Denies system reviewed and no additional complaints, except as documented and Reports as per HPI Cardiovascular: Cardiovascular: Reports as per HPI, Reports no additional cardiovascular complaints, Denies acrocyanosis, Denies cool extremities, Denies chest pain, Denies leg edema, Denies lightheadedness, Denies palpitations and Denies dyspnea Respiratory: Respiratory: Reports as per HPI, Denies no additional respiratory complaints and Denies dyspnea Gastrointestinal: Gastrointestinal: Reports as per HPI and Denies no additional gastrointestinal complaints Genitourinary: Genitourinary: Reports no additional male genitourinary complaints and Reports as per HPI Musculoskeletal: Musculoskeletal: Reports no additional musculoskeletal complaints and Reports as per HPI Integumentary/Breasts: Skin/Breast: Reports system reviewed and no additional complaints, except as docu Neurologic: Reports system reviewed and no additional complaints, except as documented and Reports as per HPI Psychiatric: Psychiatric: Reports no additional psychiatric complaints and Reports as per HPI Endocrine: Endocrine: Reports no additional endocrine complaints, Reports as per HPI and Denies palpitations Hematologic/Lymphatic: Hematologic/Lymphatic: Reports no additional hematologic/lymphatic complaints and Reports as per HPI Allergic/Immunologic: Allergic/Immunologic: Reports no additional allergic/immunologic complaints and Reports as per HPI [facility], [facility] Family History Pertinent family history: No pertinent family history Social History Social History Alcohol intake: former Smoked in Last 30 Days: Yes Use of substances other than those prescribed or required for medical reasons: No Advance Directives: Yes Advance Directives Information Provided: Yes Advance Directives on File: No Meds Allergies Allergy/AdvReac Type Severity Reaction Status Date / Time Penicillins (PENICILLINS) Allergy Severe ANAPHYLAXIS Verified 04/29/25 23:33 penicillin V Allergy Unknown anaphylaxis Verified 04/29/25 23:33 Active Medications: Current Medications Acetaminophen (Acetaminophen 325 Mg Tablet) 650 mg PO Q6H PRN PRN Reason: Pain, Mild 1-3,fever,headache Calcium Carbonate (Calcium Carbonate 750 Mg Tab.Chew) 750 mg PO Q4H PRN PRN Reason: Heartburn Enoxaparin Sodium (Enoxaparin Sodium 40 Mg/0.4 Ml Syringe) 40 mg SUBCUT Q24H COLIN Last Admin: 04/30/25 09:27 Dose: 40 mg Lactated Ringer's (Lr) 1,000 mls @ 100 mls/hr IVCONT .Q10H [facility] Last Admin: 04/30/25 09:27 Dose: 100 mls/hr Levofloxacin (Levaquin) 750 mg in 150 mls @ 100 mls/hr IV Q24H [facility] Metronidazole (Flagyl) 500 mg in 100 mls @ 100 mls/hr IV Q8H [facility] Magnesium Hydroxide (Milk Of Magnesia 30 Ml Oral.Susp) 30 ml PO DAILY PRN PRN Reason: Constipation Melatonin (Melatonin 3 Mg Tablet) 6 mg PO BEDTIME PRN PRN Reason: Insomnia Sodium Chloride (0.9 % Sodium Chloride Flush 3 Ml Syringe) 3 ml IVFLUSH QSHIFT COLIN Physical Exam Vital Signs: Vital Signs: Last Vital Signs Temp 97.8 F 04/30/25 08:19 Pulse 68 04/30/25 08:19 Resp 16 04/30/25 08:19 BP 177/72 H 04/30/25 08:19 Pulse Ox 97 04/30/25 08:19 O2 Del Method Room Air 04/30/25 08:19 BMI result Body Mass Index 31.3 Const: General: comfortable and no acute distress Orientation/consciousness: patient oriented x3 HEENT: Other: Unremarkable Head: Yes normal to inspection Neck: Neck: Yes normal visual inspection Chest: Chest palpation & inspection: normal inspection of the chest Resp: Auscultation: clear to auscultation bilaterally Cardio: Palpation: normal PMI Heart sounds: S1 normal heart sound present, S2 normal heart sound present, no gallops, no murmurs and no rubs GI: Palpation (GI): Soft to palpation Back/Spine/Pelvis: Other: unremarkable Skin: General skin exam: no rashes or lesions noted Neuro: General: patient oriented x3 Extrem: General: Yes normal to inspection Psych: Mental Status: mental status grossly normal Objective Labs and Meds 04/29/25 23:44 04/29/25 23:44 Lab results: Laboratory Results - last 24 hr 04/29/25 04/30/25 04/30/25 23:44 00:01 02:03 WBC 10.7 RBC 4.06 L Hgb 13.0 L Hct 37.3 L MCV 91.9 MCH 32.0 MCHC 34.9 RDW 13.3 Plt Count 142 L MPV 10.3 Immature Gran % (Auto) 0.3 Neut % (Auto) 95.3 H Lymph % (Auto) 2.4 L [place] % (Auto) 1.7 L Eos % (Auto) 0.1 Baso % (Auto) 0.2 Lymph # (Auto) 0.3 L [place] # (Auto) 0.2 Eos # (Auto) 0.0 Baso # (Auto) 0.0 Abs Immat Gran (auto) 0.03 Absolute Neuts (auto) 10.2 H Absolute Nucleated RBC 0.000 Nucleated RBC % (auto) 0.0 Smear Tech's Comments VERIFIED PT 13.5 H INR 1.2 H Sodium 135 Potassium 4.2 Chloride 103 Carbon Dioxide 24 Anion Gap 12 BUN 19 H Creatinine 0.87 Estim Creat Clear Calc 79.8 Estimated GFR > 60 Random Glucose 137 H Lactic Acid 1.7 Calcium 9.1 Magnesium 1.7 Total Bilirubin 4.8 H Direct Bilirubin 3.2 H AST 257 H ALT 279 H Alkaline Phosphatase 372 H Total Creatine Kinase Troponin I High Sens 119.3 H* 344.8 H* D C-Reactive Protein 4.46 H B-Natriuretic Peptide 186 H Total Protein 6.6 Albumin 3.7 Lipase 17 Urine Color Urine Appearance Urine pH Ur Specific [place] Urine Protein Urine Glucose (UA) Urine Ketones Urine Blood Urine Nitrite Ur Leukocyte Esterase Urine RBC Urine WBC Ur Squamous Epith Cells Urine Bacteria Hyaline Casts Ethyl Alcohol < 10 Influenza Type A (PCR) NEGATIVE Influenza Type B (PCR) NEGATIVE RSV RNA Qual (PCR) NEGATIVE SARS-CoV-2 RNA (RT-PCR) NEGATIVE 04/30/25 04/30/25 02:36 04:18 WBC RBC Hgb Hct MCV MCH MCHC RDW Plt Count MPV Immature Gran % (Auto) Neut % (Auto) Lymph % (Auto) [place] % (Auto) Eos % (Auto) Baso % (Auto) Lymph # (Auto) [place] # (Auto) Eos # (Auto) Baso # (Auto) Abs Immat Gran (auto) Absolute Neuts (auto) Absolute Nucleated RBC Nucleated RBC % (auto) Smear Tech's Comments PT INR Sodium Potassium Chloride Carbon Dioxide Anion Gap BUN Creatinine Estim Creat Clear Calc Estimated GFR Random Glucose Lactic Acid Calcium Magnesium Total Bilirubin Direct Bilirubin AST ALT Alkaline Phosphatase Total Creatine Kinase 94 Troponin I High Sens 439.8 H* C-Reactive Protein B-Natriuretic Peptide Total Protein Albumin Lipase Urine Color Dark Yellow Urine Appearance Clear Urine pH 5.5 Ur Specific [place] 1.025 Urine Protein 30 (1+) H Urine Glucose (UA) Negative Urine Ketones Negative Urine Blood Large (3+) H Urine Nitrite Positive H Ur Leukocyte Esterase Small (1+) H Urine RBC 11-20 H Urine WBC 0-5 Ur Squamous Epith Cells 3-5 Urine Bacteria 1+ Hyaline Casts 0-2 Ethyl Alcohol Influenza Type A (PCR) Influenza Type B (PCR) RSV RNA Qual (PCR) SARS-CoV-2 RNA (RT-PCR) ECG Interpretation: EKG with underlying sinus rhythm at VT of 228 milliseconds; possible left atrial enlargement; leftward axis; minimal criteria for LVH. Previous EKGs similar. Assessment and Plan (1) NSTEMI (non-ST elevated myocardial infarction): Status: Acute Plan Troponin levels are 119, 344 and 439. Clinically, he does not have chest pain. No prior cardiac history either. Suspect this is demand related NSTEMI in the setting of ? Cholangitis. We will get an echocardiogram for cardiac function assessment. If no contraindications and no immediate need for GI procedure, then IV heparin, aspirin, beta-blockers. As LFTs already high, hold statins. We will follow up with you. Procedures Date of Service Date of Service: 04/30/25
--- NOTE | 2025-04-30 10:48 | PHA.MEDREC ---
Addendum entered by Doreen Hein [facility] 04/30/25 11:10: Reviewed [facility] Original Note: Pharmacy Consult ? Medication Reconciliation Pharmacy has completed the medication reconciliation. Spoke with pt and he confirmed he is only taking Baby Aspirin and a Multivitamin once daily and alternates between Advil and Tylenol as needed for pain. Pt confirmed he was taking Amlodipine and Hydrochlorothiazide for HBP but states he has not had them for over a year due to loosing his PCP and never getting anew one.
--- NOTE | 2025-04-30 11:12 | PC.NURSE ---
Addendum entered by Elina Lopez RN 04/30/25 14:02: New weight obtained and pharmacy updated. Per pharmacy ok to start drip on weight present in order. Heparin gtt started and this RN accompanied pt to MRI. Scan completed and pt tolerated well. Original Note: Pt currently undergoing echo, pharmacy called to request weight clarification. Attempting to get weight after echo completion.
[2025-04-30 11:15] LABS: PTT Heparin Drip 34.3 SEC (53-77.9)
[2025-04-30] MEDS: Heparin Sodium,Porcine/1/2NS 25,000 UNIT/250 ML IV.SOLN 10 UNIT IVCONT (12:32)
--- NOTE | 2025-04-30 14:22 | P.CNGI_ITS ---
History of Present Illness Data of Consult Service Date: 04/30/25 Primary Care Provider: KEYON Denton HPI Reason for consult: ?cholangitis 80-year-old male w/ hx of HTN, who I am seeing for assessment for abn LFT and possible cholangitis He fell to the ground without LOC but has weakeness and couldn't get up. He denies chest pain, palptns, abdominal pain, diarrhea, nausea or vomiting. No hx of using alcohol or drugs His labs revealed Ua pos for bld and nitrites and abn LFT , rising troponin Imaging with dialted ducts and choledocholithiasis. LABS: total bilirubin of 4.8, AST 257, ALT 279, alk phos 372, INR 1.2; CBC showed no leukocytosis but he does have a left shift and bandemia. Review of Systems 2 Review of Systems: Constitutional : No Weight loss, No Fever, No Chills ENT/Mouth : No sore throat, No Rhinorrhea Eyes: No Swelling, No Redness Cardiovascular : No Chest Pain, No SOB, No Edema Respiratory : No Cough, No Sputum, No Wheezing Gastrointestinal : see HPI Genitourinary : NO Dysuria, No Urinary Frequency, No Hematuria, No Urgency Musculoskeletal : + back pain, No Myalgias, No Joint Swelling Skin : No Skin Lesions, No rash Neuro : No Weakness, No Numbness, No Dizziness, No Headache Psych : No Anxiety/Panic, No Depression Heme/Lymph: No Bruising, No Lymphadenopathy Endocrine : No Polyuria, No Polydipsia All other systems reviewed and are negative. [facility] Family History Pertinent family history: no Fh of biliary disease Social History Social History Alcohol intake: former Smoked in Last 30 Days: Yes Use of substances other than those prescribed or required for medical reasons: No Advance Directives: Yes Advance Directives Information Provided: Yes Advance Directives on File: No Meds Allergies Allergy/AdvReac Type Severity Reaction Status Date / Time Penicillins (PENICILLINS) Allergy Severe ANAPHYLAXIS Verified 04/29/25 23:33 penicillin V Allergy Unknown anaphylaxis Verified 04/29/25 23:33 Active Medications: Current Medications Acetaminophen (Acetaminophen 325 Mg Tablet) 650 mg PO Q6H PRN PRN Reason: Pain, Mild 1-3,fever,headache Aspirin (Aspirin 81 Mg Tab.Chew) 81 mg PO DAILY [facility] Last Admin: 04/30/25 12:14 Dose: 81 mg Calcium Carbonate (Calcium Carbonate 750 Mg Tab.Chew) 750 mg PO Q4H PRN PRN Reason: Heartburn Heparin Sodium (Porcine) (Heparin Sodium,Porcine 5,000 Unit/Ml Vial) 4,000 unit 40 unit/kg (4000 unit) IVPUSH PROTOCOL BOLUS PRN; Protocol PRN Reason: 40 unit/kg - Heparin Protocol Heparin Sodium (Porcine) (Heparin Sodium,Porcine 5,000 Unit/Ml Vial) 7,900 unit 80 unit/kg (7900 unit) IVPUSH PROTOCOL BOLUS PRN; Protocol PRN Reason: 80 unit/kg - Heparin Protocol Lactated Ringer's (Lr) 1,000 mls @ 100 mls/hr IVCONT .Q10H [facility] Last Admin: 04/30/25 09:27 Dose: 100 mls/hr Levofloxacin (Levaquin) 750 mg in 150 mls @ 100 mls/hr IV Q24H [facility] Metronidazole (Flagyl) 500 mg in 100 mls @ 100 mls/hr IV Q8H [facility] Heparin Sodium/Sodium Chloride (Heparin Sodium,Porcine/1/2ns) 25,000 unit in 250 mls @ 0 mls/hr IVCONT .Q0M [facility]; Protocol Last Admin: 04/30/25 12:32 Dose: 10.11 units/kg/hr, 10 mls/hr Magnesium Hydroxide (Milk Of Magnesia 30 Ml Oral.Susp) 30 ml PO DAILY PRN PRN Reason: Constipation Melatonin (Melatonin 3 Mg Tablet) 6 mg PO BEDTIME PRN PRN Reason: Insomnia Sodium Chloride (0.9 % Sodium Chloride Flush 3 Ml Syringe) 3 ml IVFLUSH QSHIFT [facility] Home Medications ?Medication ?Instructions ?Recorded ?Confirmed ?Last Taken ?Type acetaminophen 325 mg tablet 325 mg PO Q6H PRN Pain 04/30/25 Unknown History aspirin 81 mg tablet 81 mg PO DAILY 04/30/2504/05 Unknown History ibuprofen 200 mg tablet (Advil) 200 mg PO Q8H PRN Pain 04/30/25 04/30/25 Unknown History multivitamin 1 tab PO DAILY 04/30/2504/05 Unknown History Physical Exam 2 Vital Signs: Vital Signs: Last Vital Signs Temp 97.1 F 04/30/25 10:00 Pulse 69 04/30/25 12:14 Resp 16 04/30/25 10:00 BP 138/49 L 04/30/25 12:14 Pulse Ox 96 04/30/25 10:00 O2 Del Method Room Air 04/30/25 10:00 BMI result Body Mass Index 30.9 EXAM: GENERAL: The patient is well developed and nontoxic. VITAL SIGNS:see workflow HEENT: Nonicteric sclerae, PERRLA, EOMI. Oropharynx clear. Moist mucous membranes. Conjunctivae appear well perfused. No thyroid mass. CHEST: Chest wall is nontender. HEART: Regular rate and rhythm without murmurs. LUNGS: Clear to auscultation bilaterally. ABDOMEN: Soft, positive bowel sounds, tender ruq, no organomegaly.no flank tenderness SKIN: No rash, no excessive bruising, petechiae, or purpura. NEUROLOGIC: Cranial nerves II-XII intact without motor/sensory deficit. Psych: normal affect Results Labs 04/29/25 23:44 04/29/25 23:44 Labs: Short CBC 04/29/25 Range/Units 23:44 WBC 10.7 (4.8-10.8) X10*3/uL Hgb 13.0 L (14.0-18.0) g/dl Hct 37.3 L (42.0-52.0) % Plt Count 142 L (160-400) X10*3/uL BMP 04/29/25 23:44 Sodium 135 Potassium 4.2 Chloride 103 Carbon Dioxide 24 BUN 19 H Creatinine 0.87 Calcium 9.1 Cardiac Enzymes 04/30/25 Range/Units 04:18 Total Creatine Kinase 94 (38-174) U/L Liver Function 04/29/25 Range/Units 23:44 Total Bilirubin 4.8 H (0.0-1.0) mg/dL Direct Bilirubin 3.2 H (0.0-0.5) mg/dL AST 257 H (5-37) U/L ALT 279 H (0-40) U/L Alkaline Phosphatase 372 H (39-117) U/L Albumin 3.7 (3.5-5.0) g/dL Urine 04/30/25 Range/Units 02:36 Urine Color Dark Yellow Urine Appearance Clear Urine pH 5.5 (5.0-9.0) Ur Specific [place] 1.025 (1.005-1.025) Urine Protein 30 (1+) H (Neg-Trace) mg/dL Urine Glucose (UA) Negative (Negative) mg/dL Assessment and Plan (1) Acute cholangitis: Status: Acute Plan 1/ Acute cholangitis with possible UTI and NSTEMI, seems to be doing much better and more relaxed. MRCP with several filling defects of the bile duct PLAN: 1/ ok to take aspirin, can put on heparin 2/ plan for ERCP Saturday with possible EHL, maybe stent placement, hold heparin morning of the test--pt and partner asked about risks which were discussed also as well as option of IR and PTC stent, they both wanted to think about it. Primary team informed they wished to proceed [facility] erc[facility]. 3/ if worsens in meantime would transfer but this seems less likely as he seems to have responded quite well to ABX and fluids Procedures Date of Service Date of Service: 04/30/25
--- NOTE | 2025-04-30 17:39 | PC.NURSE ---
Pt ambulated to the bathroom x1 assist with wheeled walker, reports increasing lower back pain 06/13. Pt offered PRN pain medication but pt refused. Repositioned in bed, call isaac within reach.
[2025-04-30 18:52] LABS: PTT Heparin Drip 54.8 SEC (53-77.9)
[2025-05-01] VITALS (8 sets, daily range): BP systolic 132–201; BP diastolic 44–87; PULSE 52–63; RESP 16–19; TEMP 36.2–36.9; O2SAT 94–96
[2025-05-01 01:08] LABS: PTT Heparin Drip 49.6 SEC (53-77.9)
[2025-05-01] MEDS: metroNIDAZOLE/NS 500 MG/100 ML PIGGYBACK 100 MG IV ×3 (06:21→23:00)
[2025-05-01 06:57] LABS: INTERNATIONAL NORM RATIO 1.2 (0.9-1.1); Prothrombin Time 13.6 SEC (10.9-12.4)
[2025-05-01 07:18] LABS: Hematocrit 35.9 % (42.0-52.0); Hemoglobin 12.4 g/dl (14.0-18.0); Mean Corpuscular HGB Conc 34.5 g/dl (31.0-36.0); Mean Corpuscular Hemoglobin 32.0 pg (27.0-33.0); Mean Corpuscular Volume 92.5 fL (80.0-98.0); NRBC Abs Auto 0.000 X10*3/uL (0.0-0.012); NRBC Pct Auto 0.0 /100WBC (0.0-0.2); Platelet Count 119 X10*3/uL (160-400); Red Blood Count 3.88 X10*6/uL (4.60-5.80); White Blood Count 5.5 X10*3/uL (4.8-10.8)
[2025-05-01 07:23] LABS: Alanine Aminotransferase 162 U/L (0-40); Albumin Level 3.1 g/dL (3.5-5.0); Alkaline Phosphatase 267 U/L (39-117); Anion Gap 12 (12-20); Aspartate Amino Transferase 99 U/L (5-37); Blood Urea Nitrogen 15 mg/dL (9-16); Calcium 8.6 mg/dL (8.4-10.2); Carbon Dioxide 24 mmol/L (22-29); Chloride 106 mmol/L (96-108); Creatinine Clr Calc Pharmacy 106.2; Estimated Glomerular Filt Rate > 60; Potassium 3.8 mmol/L (3.3-5.1); Sodium 138 mmol/L (135-145); Total Protein 5.8 g/dL (6.5-8.0)
[2025-05-01 07:59] LABS: PTT Heparin Drip 59.5 SEC (53-77.9)
[2025-05-01] MEDS: Lactated Ringers 1,000 ML 100 ML IVCONT (08:39)
[2025-05-01] MEDS: Heparin Sodium,Porcine/1/2NS 25,000 UNIT/250 ML IV.SOLN 11.97 UNIT IVCONT (08:47)
[2025-05-01 09:38] LABS: Magnesium 1.8 mg/dL (1.6-2.6)
--- NOTE | 2025-05-01 09:43 | PM.PNCARD ---
Subjective Subjective Date of Service: 05/01/25 Interval history: Patient states that he feels fine. He does not have any complaints like chest pains or in fact any cardiac symptoms at all. Review of Systems Review of Systems Yes all other systems are reviewed and are negative Constitutional: Reports as per HPI and Reports no additional constitutional complaints Eyes: Reports as per HPI and Denies no additional eye complaints Denies system reviewed and no additional complaints, except as documented and Reports as per HPI Cardiovascular: Reports as per HPI, Reports no additional cardiovascular complaints, Denies acrocyanosis, Denies cool extremities, Denies chest pain, Denies leg edema, Denies lightheadedness, Denies palpitations and Denies dyspnea Respiratory: Reports as per HPI, Denies no additional respiratory complaints and Denies dyspnea Gastrointestinal: Reports as per HPI and Denies no additional gastrointestinal complaints Genitourinary: Reports no additional male genitourinary complaints and Reports as per HPI Musculoskeletal: Reports no additional musculoskeletal complaints and Reports as per HPI Skin/Breast: Reports system reviewed and no additional complaints, except as docu Reports system reviewed and no additional complaints, except as documented and Reports as per HPI Psychiatric: Reports no additional psychiatric complaints and Reports as per HPI Endocrine: Reports no additional endocrine complaints, Reports as per HPI and Denies palpitations Hematologic/Lymphatic: Reports no additional hematologic/lymphatic complaints and Reports as per HPI Allergic/Immunologic: Reports no additional allergic/immunologic complaints and Reports as per HPI Physical Exam Vital Signs: Last Vital Signs Temp 97.2 F 05/01/25 07:45 Pulse 60 05/01/25 07:45 Resp 18 05/01/25 07:45 BP 160/70 H 05/01/25 07:45 Pulse Ox 94 05/01/25 07:45 O2 Del Method Room Air 05/01/25 07:45 BMI result Body Mass Index 30.9 Const General: comfortable and no acute distress Orientation/consciousness: patient oriented x3 HEENT Other: Unremarkable Head: Yes normal to inspection Neck Neck: Yes normal visual inspection Chest Chest palpation & inspection: normal inspection of the chest Resp Auscultation: clear to auscultation bilaterally Cardio Palpation: normal PMI Heart sounds: S1 normal heart sound present, S2 normal heart sound present, no gallops, no murmurs and no rubs GI Palpation (GI): Soft to palpation Back/Spine/Pelvis Other: unremarkable Skin General skin exam: no rashes or lesions noted Neuro General: patient oriented x3 Extrem General: Yes normal to inspection Psych Mental Status: mental status grossly normal Objective Labs and Meds 05/01/25 06:25 05/01/25 06:25 Lab results: Laboratory Results - last 24 hr 04/30/25 04/30/25 05/01/25 11:02 18:33 00:47 WBC RBC Hgb Hct MCV MCH MCHC RDW Plt Count MPV Absolute Nucleated RBC Nucleated RBC % (auto) Hold Purple Top PT INR aPTT Heparin Protocol 34.3 L 54.8 D 49.6 L Sodium Potassium Chloride Carbon Dioxide Anion Gap BUN Creatinine Estim Creat Clear Calc Estimated GFR Random Glucose Calcium Magnesium Total Bilirubin AST ALT Alkaline Phosphatase Total Protein Albumin 05/01/25 05/01/25 05/01/25 06:25 07:31 07:37 WBC 5.5 RBC 3.88 L Hgb 12.4 L Hct 35.9 L MCV 92.5 MCH 32.0 MCHC 34.5 RDW 13.3 Plt Count 119 L MPV 11.0 Absolute Nucleated RBC 0.000 Nucleated RBC % (auto) 0.0 Hold Purple Top SEE NOTE PT 13.6 H INR 1.2 H aPTT Heparin Protocol 59.5 Sodium 138 Potassium 3.8 Chloride 106 Carbon Dioxide 24 Anion Gap 12 BUN 15 Creatinine 0.65 Estim Creat Clear Calc 106.2 Estimated GFR > 60 Random Glucose 82 Calcium 8.6 Magnesium 1.8 Total Bilirubin 2.4 H AST 99 H ALT 162 H Alkaline Phosphatase 267 H Total Protein 5.8 L Albumin 3.1 L Imaging Radiologist's impression: Impressions Abdomen Ultrasound 04/30/25 09:44 IMPRESSION: Intra and extrahepatic biliary ductal dilatation. The common bile duct is distended with echogenic material which may represent sludge or a mass. ERCP is recommended. Electronically signed by: Darrick Yoder MD 04/30/2025 10:27 AM EDT Lumbar Spine X-Ray 04/30/25 10:20 IMPRESSION: 1. No definite acute abnormality of the lumbar spine. 2. Advanced lumbar spondylosis. 3. There is a grade 1 spondylolisthesis L5-S1. 4. There is a mild chronic compression deformity of the superior endplate of L4. 5. There have been prior laminectomies at L4 and L5. Electronically signed by: Christopher Black MD 04/30/2025 10:47 AM EDT RP Cholangiopancreatography MRI 04/30/25 12:54 IMPRESSION: Choledocholithiasis resulting in moderate to severe intra and extrahepatic biliary ductal dilatation. Bilateral renal cysts. Fat-containing umbilical hernia. No intestinal obstruction pattern. No gross ascites. Electronically signed by: Scooter Pride MD 04/30/2025 01:46 PM EDT RP Progress Note: A&P Assessment and plan (1) NSTEMI (non-ST elevated myocardial infarction): Status: Acute Assessment and Plan: Echo-LVEF is 50-55%; [id number] aortic regurgitation with mild aortic dilatation. Troponin levels are 119, 344 and 439. Suspect demand related NSTEMI. Clinically, no chest pain. Plan for IV heparin/48 hours; aspirin; beta-blockers. Ischemic workup eventually but timing we will need to be decided as he also has acute cholangitis. (2) PVCs (premature ventricular contractions): Status: Acute Assessment and Plan: PVCs in very brief NSVT on telemetry. Beta-blockers as above should help. If he continues to have a lot of this, then probably amiodarone. (3) HTN (hypertension): Status: Acute Assessment and Plan: Resume amlodipine. Beta-blockers should help. If blood pressure still runs high, increase amlodipine dose and consider adding nitrates. (4) Acute cholangitis: Status: Acute Assessment and Plan: Plan for ERCP noted. Because of the NSTEMI, he will be considered to be at intermediate to high-risk. Time Spent With Patient Time: Total time managing care of this patient today ____ minutes. Progress Note: Quality Stroke Does the patient have a stroke diagnosis?: No Procedures Date of Service Date of Service: 05/01/25
[2025-05-01] MEDS: Magnesium Sulfate/H2O 2 GM/50 ML PIGGYBACK IV (10:06)
--- NOTE | 2025-05-01 11:53 | P.PNIM_ITS ---
Subjective Subjective Date of Service: 05/01/25 Interval History: seen and examined this morning follow up for NSTEMI, cholangitis awake, alert, feeling better, no abdominal pain, no chest pain brief NSVT on monitor this am, asymptomatic Constitutional Constitutional: Denies chills and Denies fever(s) Cardiovascular Cardiovascular: Denies chest pain, Denies palpitations and Denies dyspnea Respiratory Respiratory: Denies cough and Denies dyspnea Gastrointestinal Gastrointestinal: Denies nausea and Denies vomiting Endocrine Endocrine: Denies palpitations Physical Exam 2 Vital Signs: Vital Signs: Last Vital Signs Temp 98.0 F 05/01/25 11:37 Pulse 52 05/01/25 11:37 Resp 18 05/01/25 11:37 BP 154/69 H 05/01/25 11:37 Pulse Ox 94 05/01/25 11:37 O2 Del Method Room Air 05/01/25 11:37 BMI result Body Mass Index 30.9 Const: General: cooperative, alert and awake Nutritional Appearance: o verweight Orientation/consciousness: patient oriented x3 Resp: Effort & Inspection: normal respiratory effort, able to speak in complete sentences, no respiratory distress and no use of accessory muscles Cardio: Rate: bradycardic GI: Inspection: No distended Palpation (GI): Soft to palpation and nontender Neuro: General: patient oriented x3, moves all extremities and CN's II-XI intact bilaterally Objective Data Active Medications Acetaminophen (Acetaminophen 325 Mg Tablet) 650 mg PO Q6H PRN PRN Reason: Pain, Mild 1-3,fever,headache Amlodipine Besylate (Amlodipine Besylate 10 Mg Tablet) 10 mg PO DAILY [facility]; Protocol Aspirin (Aspirin 81 Mg Tab.Chew) 81 mg PO DAILY [facility] Last Admin: 05/01/25 08:39 Dose: 81 mg Documented By: SABINA Calcium Carbonate (Calcium Carbonate 750 Mg Tab.Chew) 750 mg PO Q4H PRN PRN Reason: Heartburn Heparin Sodium (Porcine) (Heparin Sodium,Porcine 5,000 Unit/Ml Vial) 4,000 unit 40 unit/kg (4000 unit) IVPUSH PROTOCOL BOLUS PRN; Protocol PRN Reason: 40 unit/kg - Heparin Protocol Last Admin: 05/01/25 01:23 Dose: 4,000 unit Documented By: TERRI Heparin Sodium (Porcine) (Heparin Sodium,Porcine 5,000 Unit/Ml Vial) 7,900 unit 80 unit/kg (7900 unit) IVPUSH PROTOCOL BOLUS PRN; Protocol PRN Reason: 80 unit/kg - Heparin Protocol Lactated Ringer's (Lr) 1,000 mls @ 100 mls/hr IVCONT .Q10H [facility] Last Admin: 05/01/25 08:39 Dose: 100 mls/hr Documented By: SABINA Levofloxacin (Levaquin) 750 mg in 150 mls @ 100 mls/hr IV Q24H [facility] Last Infusion: 05/01/25 03:42 Dose: Infused Documented By: ANTOIC Metronidazole (Flagyl) 500 mg in 100 mls @ 100 mls/hr IV Q8H [facility] Last Infusion: 05/01/25 08:21 Dose: Infused Documented By: SABINA Heparin Sodium/Sodium Chloride (Heparin Sodium,Porcine/1/2ns) 25,000 unit in 250 mls @ 0 mls/hr IVCONT .Q0M [facility]; Protocol Stop: 05/02/25 10:44 Last Admin: 05/01/25 08:47 Dose: 12.11 units/kg/hr, 11.97 mls/hr Documented By: SABINA Co-signed By: GHAZAL Magnesium Hydroxide (Milk Of Magnesia 30 Ml Oral.Susp) 30 ml PO DAILY PRN PRN Reason: Constipation Melatonin (Melatonin 3 Mg Tablet) 6 mg PO BEDTIME PRN PRN Reason: Insomnia Morphine Sulfate (Morphine Sulfate 4 Mg/Ml Cartridge) 4 mg IVPUSH Q4H PRN; Protocol PRN Reason: Pain, Severe (Pain Scale 7-10) Multivitamins/Vitamin C (Multivitamin Tablet) 1 tab PO DAILY [facility] Last Admin: 05/01/25 08:39 Dose: 1 tab Documented By: SABINA Sodium Chloride (0.9 % Sodium Chloride Flush 3 Ml Syringe) 3 ml IVFLUSH QSHIFT [facility] Last Admin: 05/01/25 07:56 Dose: Not Given Documented By: SABINA Non-Admin Reason: IV Running Labs 05/01/25 06:25 05/01/25 06:25 Labs: Laboratory Results - last 24 hr 04/30/25 05/01/25 05/01/25 18:33 00:47 06:25 MCV 92.5 MCH 32.0 MCHC 34.5 RDW 13.3 Plt Count 119 L MPV 11.0 Absolute Nucleated RBC 0.000 Nucleated RBC % (auto) 0.0 Hold Purple Top PT 13.6 H INR 1.2 H aPTT Heparin Protocol 54.8 D 49.6 L Anion Gap 12 Estim Creat Clear Calc 106.2 Estimated GFR > 60 Random Glucose 82 Calcium 8.6 Magnesium 1.8 Total Bilirubin 2.4 H AST 99 H ALT 162 H Alkaline Phosphatase 267 H Total Protein 5.8 L Albumin 3.1 L 05/01/25 05/01/25 07:31 07:37 MCV MCH MCHC RDW Plt Count MPV Absolute Nucleated RBC Nucleated RBC % (auto) Hold Purple Top SEE NOTE PT INR aPTT Heparin Protocol 59.5 Anion Gap Estim Creat Clear Calc Estimated GFR Random Glucose Calcium Magnesium Total Bilirubin AST ALT Alkaline Phosphatase Total Protein Albumin Microbiology Microbiology Results: Microbiology 04/30/25 00:01 Blood Culture - Preliminary Blood - Venous Prelim: GNR Gram Stain only 04/29/25 23:44 Blood Culture - Preliminary Blood - Venous No growth after 24 hours. Assessment and Plan (1) NSTEMI (non-ST elevated myocardial infarction): Status: Acute (2) Acute cholangitis: Status: Acute (3) Urinary tract infection: Status: Acute Plan 80 yo M who reports no chronic medical issue (on baby asa + MVI only) who presents after a mechanical fall, preceed by shaking chills. Work up in the ED is consistent with sepsis secondary to cholangitis + demand ischemia. Severe Sepsis secondary to cholangitis (RUQ pain, jaundice and fever) and GNR bacteremia Meets sepsis criteria with Bandemia, fevers, tachycardia; severe features of hyperbilirubinemia IV levaquin/flagyl (PCN allergy - anaphylaxis documented) follow up cultures MRCP showing choledocholithiasis resulting in moderate to severe intra and extrahepatic biliary ductal dilation plan for ERCP on Saturday, NPO at midnight saturday GI following continue clear liquids for now 1/2 BCx growing GNR - follow final culture results and sensitivities LFTs trending down, continue to follow Elevated trops type 2 FL from demand ischemia. no chest pain echo with no WMA seen by cardiology -continue IV heparin gtt x 48 hours, metoprolol, statin on hold for elevated LFTs, asa okay per GI NSVT brief run continue BB (starting with 50 mg this am, if HR stable will give additional dose of 25-50 mg this evening) check magnesium echo with preserved EF Elevated BP denies history of HTN; outpt notes from 2020 indicate he was on norvasc/hctz bp remains elevated continue norvasc and metoprolol Full Code Endorses significant other has HCP (to complete formally with wicker worker/CM) DVT pptx - Lovenox Requires ongoing inpatient stay for management of NSTEMI requiring heparin drip and plan for ERCP on Saturday for acute cholangitis Quality Stroke Does the patient have a stroke diagnosis?: No VTE Prior VTE?: No VTE Risk Level:: Medical - moderate - high VTE Device Contraindication: N/A - Device Ordered VTE Drug Contraindication: N/A - Med Ordered
[2025-05-01 14:34] LABS: PTT Heparin Drip 43.8 SEC (53-77.9)
--- NOTE | 2025-05-01 16:32 | MHC.CM.PN ---
Addendum entered by Sharri Lott 05/03/25 08:32: PT COMPLETED A NEW HCP NAMING HIS S/O, FERNANDO HARRIS, HIS AGENT. Original Note: PT SLEEPING ON AND OFF, INFORMATION OBTAINED PRIMARILY FROM S/OFERNANDO, AT BEDSIDE IT IS ONLY FERNANDO AND THE PT IN THE HOME HE IS INDEPENDENT WITH CARE AND HAS NO SERVICES HE USES A CANE FOR DME CM WILL DISCUSS A HCP WITH HIM WHEN HE IS AWAKE AND VISITORS HAVE LEFT PT HAS A NEW PT APPT SCHEDULED WITH CHEKO HUNT IN NOVEMBER DCP: HOME VIA FAMILY TRANSPORT
[2025-05-01 21:23] LABS: PTT Heparin Drip 58.7 SEC (53-77.9)
[2025-05-01] MEDS: Lactated Ringers 1,000 ML 75 ML IVCONT (22:55)
[2025-05-02] VITALS (11 sets, daily range): BP systolic 137–175; BP diastolic 61–76; PULSE 52–86; RESP 16–18; TEMP 36.4–37.3; O2SAT 92–96
[2025-05-02 03:19] LABS: PTT Heparin Drip 57.7 SEC (53-77.9)
[2025-05-02] MEDS: Heparin Sodium,Porcine/1/2NS 25,000 UNIT/250 ML IV.SOLN 13.95 UNIT IVCONT (03:36)
[2025-05-02] MEDS: metroNIDAZOLE/NS 500 MG/100 ML PIGGYBACK 100 MG IV ×3 (06:27→22:47)
[2025-05-02 07:06] LABS: Hematocrit 37.2 % (42.0-52.0); Hemoglobin 12.9 g/dl (14.0-18.0); Mean Corpuscular HGB Conc 34.7 g/dl (31.0-36.0); Mean Corpuscular Hemoglobin 32.0 pg (27.0-33.0); Mean Corpuscular Volume 92.3 fL (80.0-98.0); NRBC Abs Auto 0.000 X10*3/uL (0.0-0.012); NRBC Pct Auto 0.0 /100WBC (0.0-0.2); Platelet Count 143 X10*3/uL (160-400); Red Blood Count 4.03 X10*6/uL (4.60-5.80); White Blood Count 5.7 X10*3/uL (4.8-10.8)
[2025-05-02 07:26] LABS: Alanine Aminotransferase 129 U/L (0-40); Albumin Level 3.3 g/dL (3.5-5.0); Alkaline Phosphatase 265 U/L (39-117); Anion Gap 13 (12-20); Aspartate Amino Transferase 62 U/L (5-37); Blood Urea Nitrogen 10 mg/dL (9-16); Calcium 8.9 mg/dL (8.4-10.2); Carbon Dioxide 26 mmol/L (22-29); Chloride 105 mmol/L (96-108); Creatinine Clr Calc Pharmacy 111.3; Estimated Glomerular Filt Rate > 60; Potassium 3.8 mmol/L (3.3-5.1); Sodium 140 mmol/L (135-145); Total Protein 6.0 g/dL (6.5-8.0)
[2025-05-02] MEDS: 0.9 % Sodium Chloride Flush 3 ML SYRINGE IVFLUSH ×3 (09:27→23:57)
--- NOTE | 2025-05-02 10:31 | PM.PNCARD ---
Subjective Subjective Date of Service: 05/02/25 Interval history: Patient is lying comfortably. No chest pain or any other cardiac symptoms. Review of Systems Review of Systems Yes all other systems are reviewed and are negative Constitutional: Reports as per HPI and Reports no additional constitutional complaints Eyes: Reports as per HPI and Denies no additional eye complaints Denies system reviewed and no additional complaints, except as documented and Reports as per HPI Cardiovascular: Reports as per HPI, Reports no additional cardiovascular complaints, Denies acrocyanosis, Denies cool extremities, Denies chest pain, Denies leg edema, Denies lightheadedness, Denies palpitations and Denies dyspnea Respiratory: Reports as per HPI, Denies no additional respiratory complaints and Denies dyspnea Gastrointestinal: Reports as per HPI and Denies no additional gastrointestinal complaints Genitourinary: Reports no additional male genitourinary complaints and Reports as per HPI Musculoskeletal: Reports no additional musculoskeletal complaints and Reports as per HPI Skin/Breast: Reports system reviewed and no additional complaints, except as docu Reports system reviewed and no additional complaints, except as documented and Reports as per HPI Psychiatric: Reports no additional psychiatric complaints and Reports as per HPI Endocrine: Reports no additional endocrine complaints, Reports as per HPI and Denies palpitations Hematologic/Lymphatic: Reports no additional hematologic/lymphatic complaints and Reports as per HPI Allergic/Immunologic: Reports no additional allergic/immunologic complaints and Reports as per HPI Physical Exam Vital Signs: Last Vital Signs Temp 99.2 F 05/02/25 07:39 Pulse 65 05/02/25 07:39 Resp 18 05/02/25 07:39 BP 175/76 H 05/02/25 09:27 Pulse Ox 93 05/02/25 07:39 O2 Del Method Room Air 05/02/25 07:39 O2 Flow Rate 2 05/02/25 03:44 BMI result Body Mass Index 30.9 Const General: comfortable and no acute distress Orientation/consciousness: patient oriented x3 HEENT Other: Unremarkable Head: Yes normal to inspection Neck Neck: Yes normal visual inspection Chest Chest palpation & inspection: normal inspection of the chest Resp Auscultation: clear to auscultation bilaterally Cardio Palpation: normal PMI Heart sounds: S1 normal heart sound present, S2 normal heart sound present, no gallops, no murmurs and no rubs GI Palpation (GI): Soft to palpation Back/Spine/Pelvis Other: unremarkable Skin General skin exam: no rashes or lesions noted Neuro General: patient oriented x3 Extrem General: Yes normal to inspection Psych Mental Status: mental status grossly normal Objective Labs and Meds 05/02/25 06:33 05/02/25 06:33 Lab results: Laboratory Results - last 24 hr 05/01/25 05/01/25 05/02/25 14:16 20:53 03:05 WBC RBC Hgb Hct MCV MCH MCHC RDW Plt Count MPV Absolute Nucleated RBC Nucleated RBC % (auto) aPTT Heparin Protocol 43.8 L D 58.7 D 57.7 Sodium Potassium Chloride Carbon Dioxide Anion Gap BUN Creatinine Estim Creat Clear Calc Estimated GFR Random Glucose Calcium Total Bilirubin Direct Bilirubin AST ALT Alkaline Phosphatase Total Protein Albumin 05/02/25 06:33 WBC 5.7 RBC 4.03 L Hgb 12.9 L Hct 37.2 L MCV 92.3 MCH 32.0 MCHC 34.7 RDW 13.3 Plt Count 143 L MPV 10.9 Absolute Nucleated RBC 0.000 Nucleated RBC % (auto) 0.0 aPTT Heparin Protocol Sodium 140 Potassium 3.8 Chloride 105 Carbon Dioxide 26 Anion Gap 13 BUN 10 Creatinine 0.62 Estim Creat Clear Calc 111.3 Estimated GFR > 60 Random Glucose 90 Calcium 8.9 Total Bilirubin 1.4 H Direct Bilirubin 0.9 H AST 62 H ALT 129 H Alkaline Phosphatase 265 H Total Protein 6.0 L Albumin 3.3 L Progress Note: A&P Assessment and plan (1) NSTEMI (non-ST elevated myocardial infarction): Status: Acute Assessment and Plan: Echo-LVEF is 50-55%; [id number] aortic regurgitation with mild aortic dilatation. Troponin levels are 119, 344 and 439. Suspect demand related NSTEMI. Clinically, no chest pain. Plan for IV heparin/48 hours; aspirin; beta-blockers. Ischemic workup eventually, likely as outpatient. (2) PVCs (premature ventricular contractions): Status: Acute Assessment and Plan: Improved on telemetry. Continue beta-blockers. (3) HTN (hypertension): Status: Acute Assessment and Plan: On amlodipine/metoprolol. Blood pressure is still high. Add losartan 50 mg daily. (4) Acute cholangitis: Status: Acute Assessment and Plan: Plan for ERCP noted. Because of the NSTEMI, he will be considered to be at intermediate to high cardiac risk. Time Spent With Patient Time: Total time managing care of this patient today ____ minutes. Progress Note: Quality Stroke Does the patient have a stroke diagnosis?: No Procedures Date of Service Date of Service: 05/02/25
--- NOTE | 2025-05-02 11:41 | P.PNIM_ITS ---
Subjective Subjective Date of Service: 05/02/25 Interval History: seen and examined this morning follow up for cholangitis, NSTEMI, high blood pressure frequent urination overnight did not sleep well no abdominal pain Constitutional Constitutional: Denies chills and Denies fever(s) Physical Exam 2 Vital Signs: Vital Signs: Last Vital Signs Temp 99.2 F 05/02/25 07:39 Pulse 65 05/02/25 07:39 Resp 18 05/02/25 07:39 BP 175/76 H 05/02/25 10:54 Pulse Ox 93 05/02/25 07:39 O2 Del Method Room Air 05/02/25 07:39 O2 Flow Rate 2 05/02/25 03:44 BMI result Body Mass Index 30.9 Const: General: cooperative, alert and awake Nutritional Appearance: o verweight Orientation/consciousness: patient oriented x3 Resp: Effort & Inspection: normal respiratory effort, able to speak in complete sentences, no respiratory distress and no use of accessory muscles Cardio: Rate: bradycardic GI: Inspection: No distended Palpation (GI): Soft to palpation and nontender Neuro: General: patient oriented x3, moves all extremities and CN's II-XI intact bilaterally Objective Data Active Medications Acetaminophen (Acetaminophen 325 Mg Tablet) 650 mg PO Q6H PRN PRN Reason: Pain, Mild 1-3,fever,headache Amlodipine Besylate (Amlodipine Besylate 10 Mg Tablet) 10 mg PO DAILY [facility]; Protocol Last Admin: 05/02/25 09:27 Dose: 10 mg Documented By: LIZBET Aspirin (Aspirin 81 Mg Tab.Chew) 81 mg PO DAILY [facility] Last Admin: 05/02/25 09:27 Dose: 81 mg Documented By: LIZBET Calcium Carbonate (Calcium Carbonate 750 Mg Tab.Chew) 750 mg PO Q4H PRN PRN Reason: Heartburn Heparin Sodium (Porcine) (Heparin Sodium,Porcine 5,000 Unit/Ml Vial) 4,000 unit 40 unit/kg (4000 unit) IVPUSH PROTOCOL BOLUS PRN; Protocol PRN Reason: 40 unit/kg - Heparin Protocol Last Admin: 05/01/25 15:07 Dose: 4,000 unit Documented By: RICCIAV Heparin Sodium (Porcine) (Heparin Sodium,Porcine 5,000 Unit/Ml Vial) 7,900 unit 80 unit/kg (7900 unit) IVPUSH PROTOCOL BOLUS PRN; Protocol PRN Reason: 80 unit/kg - Heparin Protocol Levofloxacin (Levaquin) 750 mg in 150 mls @ 100 mls/hr IV Q24H [facility] Last Infusion: 05/02/25 03:06 Dose: Infused Documented By: LISANDRO-RAFAT Metronidazole (Flagyl) 500 mg in 100 mls @ 100 mls/hr IV Q8H [facility] Last Infusion: 05/02/25 07:32 Dose: Infused Documented By: LIZBET Losartan Potassium (Losartan Potassium 50 Mg Tablet) 50 mg PO DAILY [facility]; Protocol Last Admin: 05/02/25 10:54 Dose: 50 mg Documented By: LIZBET Magnesium Hydroxide (Milk Of Magnesia 30 Ml Oral.Susp) 30 ml PO DAILY PRN PRN Reason: Constipation Melatonin (Melatonin 3 Mg Tablet) 6 mg PO BEDTIME PRN PRN Reason: Insomnia Metoprolol Tartrate (Metoprolol Tartrate 50 Mg Tablet) 50 mg PO BID [facility]; Protocol Last Admin: 05/02/25 09:27 Dose: 50 mg Documented By: LIZBET Morphine Sulfate (Morphine Sulfate 4 Mg/Ml Cartridge) 4 mg IVPUSH Q4H PRN; Protocol PRN Reason: Pain, Severe (Pain Scale 7-10) Multivitamins/Vitamin C (Multivitamin Tablet) 1 tab PO DAILY [facility] Last Admin: 05/02/25 09:28 Dose: 1 tab Documented By: LIZBET Sodium Chloride (0.9 % Sodium Chloride Flush 3 Ml Syringe) 3 ml IVFLUSH QSHIFT [facility] Last Admin: 05/02/25 09:27 Dose: 3 ml Documented By: LIZBET Labs 05/02/25 06:33 05/02/25 06:33 Labs: Laboratory Results - last 24 hr 05/01/25 05/01/25 05/02/25 14:16 20:53 03:05 MCV MCH MCHC RDW Plt Count MPV Absolute Nucleated RBC Nucleated RBC % (auto) aPTT Heparin Protocol 43.8 L D 58.7 D 57.7 Anion Gap Estim Creat Clear Calc Estimated GFR Random Glucose Calcium Total Bilirubin Direct Bilirubin AST ALT Alkaline Phosphatase Total Protein Albumin 05/02/25 06:33 MCV 92.3 MCH 32.0 MCHC 34.7 RDW 13.3 Plt Count 143 L MPV 10.9 Absolute Nucleated RBC 0.000 Nucleated RBC % (auto) 0.0 aPTT Heparin Protocol Anion Gap 13 Estim Creat Clear Calc 111.3 Estimated GFR > 60 Random Glucose 90 Calcium 8.9 Total Bilirubin 1.4 H Direct Bilirubin 0.9 H AST 62 H ALT 129 H Alkaline Phosphatase 265 H Total Protein 6.0 L Albumin 3.3 L Microbiology Microbiology Results: Microbiology 04/29/25 23:44 Blood Culture - Preliminary Blood - Venous No growth after 48 hours. 04/30/25 Unknown Urine Culture - Final Urine clean catch - Clean Catch Midstream 04/30/25 00:01 Blood Culture - Preliminary Blood - Venous Prelim: GNR Gram Stain only Assessment and Plan (1) NSTEMI (non-ST elevated myocardial infarction): Status: Acute (2) Acute cholangitis: Status: Acute (3) HTN (hypertension): Status: Acute Plan 80 yo M who reports no chronic medical issue (on baby asa + MVI only) who presents after a mechanical fall, preceed by shaking chills. Work up in the ED is consistent with sepsis secondary to cholangitis + demand ischemia. Severe Sepsis secondary to cholangitis (RUQ pain, jaundice and fever) and GNR bacteremia Met sepsis criteria with Bandemia, fevers, tachycardia; severe features of hyperbilirubinemia continue IV levaquin/flagyl (PCN allergy - anaphylaxis documented) MRCP showing choledocholithiasis resulting in moderate to severe intra and extrahepatic biliary ductal dilation plan for ERCP on Saturday, Full liquids until midnight, then NPO GI following 1/2 BCx growing GNR - follow final culture results and sensitivities LFTs trending down, continue to follow Elevated trops due to type 2 PR from demand ischemia. no chest pain echo with no WMA seen by cardiology -continue IV heparin gtt x 48 hours, metoprolol, statin on hold for elevated LFTs, asa okay per GI will likely need outpatient ischemic workup Considered intermediate to high cardiac risk for planned procedure NSVT brief run lopressor 50 bid echo with preserved EF Elevated BP denies history of HTN; outpt notes from 2020 indicate he was on norvasc/hctz bp remains elevated continue norvasc and metoprolol, add losartan Full Code Endorses significant other has HCP DVT pptx - heparin drip, then hold chemoprophylaxis until after procedure Requires ongoing inpatient stay for management of NSTEMI requiring heparin drip and plan for ERCP on Saturday for acute cholangitis Quality Stroke Does the patient have a stroke diagnosis?: No VTE Prior VTE?: No VTE Risk Level:: Medical - moderate - high VTE Device Contraindication: N/A - Device Ordered VTE Drug Contraindication: N/A - Med Ordered
[2025-05-02] MEDS: traZODone HCL 25 MG HALFTAB PO (23:06)
[2025-05-03] VITALS (14 sets, daily range): BP systolic 136–184; BP diastolic 56–87; PULSE 53–94; RESP 16–28; TEMP 36.2–37.1; O2SAT 3–100
[2025-05-03] MEDS: metroNIDAZOLE/NS 500 MG/100 ML PIGGYBACK 100 MG IV ×3 (06:01→23:01)
[2025-05-03 07:02] LABS: Hematocrit 35.7 % (42.0-52.0); Hemoglobin 12.2 g/dl (14.0-18.0); Mean Corpuscular HGB Conc 34.2 g/dl (31.0-36.0); Mean Corpuscular Hemoglobin 31.9 pg (27.0-33.0); Mean Corpuscular Volume 93.2 fL (80.0-98.0); NRBC Abs Auto 0.000 X10*3/uL (0.0-0.012); NRBC Pct Auto 0.0 /100WBC (0.0-0.2); Platelet Count 157 X10*3/uL (160-400); Red Blood Count 3.83 X10*6/uL (4.60-5.80); White Blood Count 5.1 X10*3/uL (4.8-10.8)
[2025-05-03 07:09] LABS: PTT Heparin Drip 32.4 SEC (53-77.9)
[2025-05-03 07:17] LABS: Alanine Aminotransferase 107 U/L (0-40); Albumin Level 3.1 g/dL (3.5-5.0); Alkaline Phosphatase 254 U/L (39-117); Anion Gap 10 (12-20); Aspartate Amino Transferase 55 U/L (5-37); Blood Urea Nitrogen 10 mg/dL (9-16); Calcium 8.9 mg/dL (8.4-10.2); Carbon Dioxide 29 mmol/L (22-29); Chloride 105 mmol/L (96-108); Creatinine Clr Calc Pharmacy 98.6; Estimated Glomerular Filt Rate > 60; Potassium 3.7 mmol/L (3.3-5.1); Sodium 140 mmol/L (135-145); Total Protein 5.8 g/dL (6.5-8.0)
[2025-05-03] MEDS: 0.9 % Sodium Chloride Flush 3 ML SYRINGE IVFLUSH ×2 (09:10→18:11)
--- NOTE | 2025-05-03 10:45 | PM.PNCARD ---
Subjective Subjective Date of Service: 05/03/25 Principal diagnosis: NSTEMI Interval history: Patient has no chest pain no shortness of breath. Blood pressure is better controlled. Plan to undergo ERCP today. Review of Systems Constitutional: Reports no additional constitutional complaints Cardiovascular: Reports no additional cardiovascular complaints Gastrointestinal: Reports no additional gastrointestinal complaints Genitourinary: Reports no additional male genitourinary complaints Musculoskeletal: Reports no additional musculoskeletal complaints Physical Exam Vital Signs: Last Vital Signs Temp 98.3 F 05/03/25 07:57 Pulse 64 05/03/25 09:11 Resp 18 05/03/25 07:57 BP 145/58 H 05/03/25 09:11 Pulse Ox 93 05/03/25 07:57 O2 Del Method Room Air 05/03/25 07:57 O2 Flow Rate 2 05/02/25 03:44 BMI result Body Mass Index 30.9 Const General: cooperative, comfortable, no acute distress, alert and awake Nutritional Appearance: overweight Orientation/consciousness: patient oriented x3 Neck Neck: Yes trachea midline, Yes supple and Yes no JVD Resp Effort & Inspection: normal respiratory effort Auscultation: clear to auscultation bilaterally Cardio Jugular venous distension: no JVD Palpation: normal PMI Rate: regular rate Rhythm: abnormal rhythm with ectopic beats Heart sounds: S1 normal heart sound present, S2 normal heart sound present, no click, no gallops and no murmurs GI Auscultation: normal bowel sounds Neuro General: patient oriented x3 and no focal motor deficits Extrem General: Yes no clubbing, cyanosis or edema Objective Labs and Meds 05/03/25 06:21 05/03/25 06:21 Lab results: Laboratory Results - last 24 hr 05/03/25 06:21 WBC 5.1 RBC 3.83 L Hgb 12.2 L Hct 35.7 L MCV 93.2 MCH 31.9 MCHC 34.2 RDW 13.1 Plt Count 157 L MPV 10.5 Absolute Nucleated RBC 0.000 Nucleated RBC % (auto) 0.0 aPTT Heparin Protocol 32.4 L D Sodium 140 Potassium 3.7 Chloride 105 Carbon Dioxide 29 Anion Gap 10 L BUN 10 Creatinine 0.70 Estim Creat Clear Calc 98.6 Estimated GFR > 60 Random Glucose 102 Calcium 8.9 Total Bilirubin 1.3 H Direct Bilirubin 0.8 H AST 55 H ALT 107 H Alkaline Phosphatase 254 H Total Protein 5.8 L Albumin 3.1 L Progress Note: A&P Assessment and plan (1) NSTEMI (non-ST elevated myocardial infarction): Status: Acute Assessment and Plan: NSTEMI in this elderly gentleman in setting of acute medical/surgical illness with cholangitis. No chest pain syndrome. No wall motion abnormality seen on echocardiogram. Her high likelihood of underlying obstructive CAD. Most likely secondary to myocardial stress from his acute medical/surgical illness. Will continue with aspirin, aggressive blood pressure control as well as statins. Start atorvastatin 80 mg daily. Will need outpatient myocardial perfusion imaging testing. Discussed with patient and family. Currently optimized to undergo ERCP with intermediate risk. Will sign of the case, will follow as outpatient. Thank you for allowing me to partake in his care Time Spent With Patient Time: Total time managing care of this patient today ____ minutes. Progress Note: Quality Stroke Does the patient have a stroke diagnosis?: No Procedures Date of Service Date of Service: 05/03/25
--- NOTE | 2025-05-03 11:01 | MHC.CM.PN ---
Addendum entered by Elina Guillen RN 05/03/25 14:06: CM MET W/PT AND Aarti KING AT BEDSIDE, FERNANDO REPORTS BACK END WEB DEVELOPER WOULD LIKE FOR PT TO BE SEEN SOONER THAN NOVEMBER D/T NEW CARDIAC ISSUES. CM [facility]TA[facility] WAS ABLE TO GET PT IN TO BE SEE W/DR. HUNT JUNE 28 AT 8:30AM, APPT ADDED TO DP. Original Note: EMR REVIEWED, PER HOSPITALIST ANTIC ERCP TODAY AND DC HOME BY FRIDAY 05/04, M WILL CONT TO FOLLOW DC NEEDS.
--- NOTE | 2025-05-03 12:18 | HO.PM.IMPN ---
Subjective Subjective Date of Service: 05/03/25 Interval History: Seen and examined this morning Follow-up for cholangitis, NSTEMI Slept better overnight Denies abdominal pain at this time. No chest Constitutional Constitutional: Denies chills and Denies fever(s) ENT Ears, Nose, Mouth, and Throat: Denies dizziness Neurologic Neurologic: Denies dizziness Physical Exam Vital Signs: Vital Signs: Last Vital Signs Temp 98.0 F 05/03/25 11:41 Pulse 53 05/03/25 11:41 Resp 18 05/03/25 11:41 BP 165/68 H 05/03/25 11:41 Pulse Ox 95 05/03/25 11:41 O2 Del Method Room Air 05/03/25 11:41 O2 Flow Rate 2 05/02/25 03:44 BMI result Body Mass Index 30.9 Const: General: cooperative, alert and awake Nutritional Appearance: overweight Orientation/consciousness: patient oriented x3 Resp: Effort & Inspection: normal respiratory effort, able to speak in complete sentences, no respiratory distress and no use of accessory muscles Cardio: Rate: bradycardic GI: Inspection: No distended Palpation (GI): Soft to palpation and nontender Neuro: General: patient oriented x3, moves all extremities and CN's II-XI intact bilaterally Objective Data Active Medications Acetaminophen (Acetaminophen 325 Mg Tablet) 650 mg PO Q6H PRN PRN Reason: Pain, Mild 1-3,fever,headache Amlodipine Besylate (Amlodipine Besylate 10 Mg Tablet) 10 mg PO DAILY [facility]; Protocol Last Admin: 05/03/25 09:11 Dose: 10 mg Documented By: LIZBET Aspirin (Aspirin 81 Mg Tab.Chew) 81 mg PO DAILY [facility] Last Admin: 05/02/25 09:27 Dose: 81 mg Documented By: LIZBET Calcium Carbonate (Calcium Carbonate 750 Mg Tab.Chew) 750 mg PO Q4H PRN PRN Reason: Heartburn Levofloxacin (Levaquin) 750 mg in 150 mls @ 100 mls/hr IV Q24H [facility] Last Infusion: 05/03/25 01:29 Dose: Infused Documented By: LISANDRO-RAFAT Metronidazole (Flagyl) 500 mg in 100 mls @ 100 mls/hr IV Q8H [facility] Last Infusion: 05/03/25 07:12 Dose: Infused Documented By: HO.ARTING Losartan Potassium (Losartan Potassium 50 Mg Tablet) 50 mg PO DAILY [facility]; Protocol Last Admin: 05/02/25 10:54 Dose: 50 mg Documented By: LIZBET Magnesium Hydroxide (Milk Of Magnesia 30 Ml Oral.Susp) 30 ml PO DAILY PRN PRN Reason: Constipation Melatonin (Melatonin 3 Mg Tablet) 6 mg PO BEDTIME PRN PRN Reason: Insomnia Last Admin: 05/02/25 23:06 Dose: 6 mg Documented By: SULLY Metoprolol Tartrate (Metoprolol Tartrate 50 Mg Tablet) 50 mg PO BID [facility]; Protocol Last Admin: 05/03/25 09:11 Dose: 50 mg Documented By: LIZBET Morphine Sulfate (Morphine Sulfate 4 Mg/Ml Cartridge) 4 mg IVPUSH Q4H PRN; Protocol PRN Reason: Pain, Severe (Pain Scale 7-10) Multivitamins/Vitamin C (Multivitamin Tablet) 1 tab PO DAILY [facility] Last Admin: 05/03/25 09:11 Dose: 1 tab Documented By: LIZBET Sodium Chloride (0.9 % Sodium Chloride Flush 3 Ml Syringe) 3 ml IVFLUSH QSHIFT [facility] Last Admin: 05/03/25 09:10 Dose: 3 ml Documented By: LIZBET Trazodone HCl (Trazodone Hcl 25 Mg Halftab) 25 mg PO BEDTIME MRX1 PRN PRN Reason: Sleep Last Admin: 05/02/25 23:06 Dose: 25 mg Documented By: SULLY Labs 05/03/25 06:21 05/03/25 06:21 Labs: Laboratory Results - last 24 hr 05/03/25 06:21 MCV 93.2 MCH 31.9 MCHC 34.2 RDW 13.1 Plt Count 157 L MPV 10.5 Absolute Nucleated RBC 0.000 Nucleated RBC % (auto) 0.0 aPTT Heparin Protocol 32.4 L D Anion Gap 10 L Estim Creat Clear Calc 98.6 Estimated GFR > 60 Random Glucose 102 Calcium 8.9 Total Bilirubin 1.3 H Direct Bilirubin 0.8 H AST 55 H ALT 107 H Alkaline Phosphatase 254 H Total Protein 5.8 L Albumin 3.1 L Microbiology Microbiology Results: Microbiology 04/30/25 00:01 Blood Culture - Final Blood - Venous Escherichia coli Assessment and Plan (1) NSTEMI (non-ST elevated myocardial infarction): Status: Acute (2) Acute cholangitis: Status: Acute Plan 80 yo M who reports no chronic medical issue (on baby asa + MVI only) who presents after a mechanical fall, preceed by shaking chills. Work up in the ED is consistent with sepsis secondary to cholangitis + demand ischemia. Severe Sepsis secondary to cholangitis (RUQ pain, jaundice and fever) and GNR bacteremia Met sepsis criteria with Bandemia, fevers, tachycardia; severe features of hyperbilirubinemia continue IV levaquin/flagyl (PCN allergy - anaphylaxis documented) MRCP showing choledocholithiasis resulting in moderate to severe intra and extrahepatic biliary ductal dilation GI following 1/2 BCx growing e.coli - due to penicillin allergy likely home with 2 weeks of levofloxacin LFTs trending down, continue to follow Plan for ERCP Elevated trops due to type 2 RI from demand ischemia. no chest pain echo with no WMA seen by cardiology -continue IV heparin gtt x 48 hours, metoprolol, statin on hold for elevated LFTs, asa okay per GI statin on discharge will need outpatient ischemic workup Considered intermediate to high cardiac risk for planned procedure NSVT brief run lopressor 50 bid echo with preserved EF Elevated BP denies history of HTN; outpt notes from 2020 indicate he was on norvasc/hctz bp remains elevated continue norvasc and metoprolol, added losartan Full Code Endorses significant other has HCP DVT pptx - heparin drip, then hold chemoprophylaxis until after procedure Requires ongoing inpatient stay for management of NSTEMI and plan for ERCP for acute cholangitis Quality Stroke Does the patient have a stroke diagnosis?: No VTE Prior VTE?: No VTE Risk Level:: Medical - moderate - high VTE Device Contraindication: N/A - Device Ordered VTE Drug Contraindication: N/A - Med Ordered
--- NOTE | 2025-05-03 14:17 | PC.NURSE ---
Report given to [facility] nurse Erika Gongora.
[2025-05-03] MEDS: Albuterol Sulfate (0.083%) 2.5 MG/3 ML VIAL.NEB INHALE (14:25)
--- NOTE | 2025-05-03 14:40 | P.PNGI_ITS ---
Subjective Subjective Date of Service: 05/03/25 Interval History: doing much better no abdominal pain no fevers or chills Critical Care Time (minutes): 0 Physical Exam 2 Vital Signs: Vital Signs: Last Vital Signs Temp 98.2 F 05/03/25 13:52 Pulse 61 05/03/25 13:52 Resp 16 05/03/25 13:52 BP 180/56 H 05/03/25 13:52 Pulse Ox 94 05/03/25 13:52 O2 Del Method Room Air 05/03/25 13:52 O2 Flow Rate 2 05/02/25 03:44 BMI result Body Mass Index 30.9 EXAM: GENERAL: The patient is well developed and nontoxic. VITAL SIGNS:see workflow HEENT: Nonicteric sclerae, PERRLA, EOMI. Oropharynx clear. Moist mucous membranes. Conjunctivae appear well perfused. No thyroid mass. CHEST: Chest wall is nontender. HEART: Regular rate and rhythm without murmurs. LUNGS: Clear to auscultation bilaterally. ABDOMEN: Soft, positive bowel sounds, nontender, no organomegaly.no flank tenderness SKIN: No rash, no excessive bruising, petechiae, or purpura. NEUROLOGIC: Cranial nerves II-XII intact without motor/sensory deficit. Psych: normal affect Objective Data Labs 05/03/25 06:21 05/03/25 06:21 Labs: Laboratory Results - last 24 hr 05/03/25 06:21 WBC 5.1 RBC 3.83 L Hgb 12.2 L Hct 35.7 L MCV 93.2 MCH 31.9 MCHC 34.2 RDW 13.1 Plt Count 157 L MPV 10.5 Absolute Nucleated RBC 0.000 Nucleated RBC % (auto) 0.0 aPTT Heparin Protocol 32.4 L D Sodium 140 Potassium 3.7 Chloride 105 Carbon Dioxide 29 Anion Gap 10 L BUN 10 Creatinine 0.70 Estim Creat Clear Calc 98.6 Estimated GFR > 60 Random Glucose 102 Calcium 8.9 Total Bilirubin 1.3 H Direct Bilirubin 0.8 H AST 55 H ALT 107 H Alkaline Phosphatase 254 H Total Protein 5.8 L Albumin 3.1 L Imaging MRI - abdomen: Attestation: I personally reviewed and interpreted this imaging study as follows: (dilated ducts, filling defects noted ) Microbiology Microbiology Results: Microbiology 04/30/25 00:01 Blood - Venous Blood Culture - Final Escherichia coli 04/29/25 23:44 Blood - Venous Blood Culture - Preliminary No growth after 48 hours. 04/30/25 Unknown Urine clean catch - Clean Catch Midstream Urine Culture - Final Procedures Date of Service Date of Service: 05/03/25 Progress Note: A&P Assessment and plan (1) Acute cholangitis: Status: Acute Plan 1/ ERCP today for further assessment with possible spyglass and EHL Time Spent With Patient Time: Total time managing care of this patient today ____ minutes. Quality Stroke Does the patient have a stroke diagnosis?: No VTE Prior VTE?: No VTE Risk Level:: Medical - moderate - high VTE Device Contraindication: N/A - Device Ordered VTE Drug Contraindication: N/A - Med Ordered
--- NOTE | 2025-05-03 15:42 | P.CONAN_ITS ---
[facility]LY [facility] Active Problems Active Problems: All Active Problems (Updated 05/01/25 @ 09:46 by Delfino Arguello MD) PVCs (premature ventricular contractions) (Acute) NSTEMI (non-ST elevated myocardial infarction) (Acute) Elevated troponin (Acute) S/P cholecystectomy (Acute) Urinary tract infection (Acute) Acute cholangitis (Acute) HTN (hypertension) (Acute) Family History Family history of problems with anesthesia: No Surgical History Surgical History (Updated 05/03/25 @ 13:51 by Sarah Boucher RN) History of repair of hiatal hernia H/O elbow surgery H/O wrist surgery Previous back surgery History of Problems with Anesthesia: No Social History Social History Household Members: Significant Other Housing: Apartment Are you a primary healthcare account manager to a significant other at home: No Do you presently have visiting nurse or other home services: No Alcohol intake: former Patient Tobacco Use Status: Current everyday Tobacco user Tobacco use type: Cigarette Cigarettes Per Day: 3 Years Smoked: 64 Advance Directives Date on File: 05/01/25 service: No Meds Allergies Allergy/AdvReac Type Severity Reaction Status Date / Time Penicillins (PENICILLINS) Allergy Severe ANAPHYLAXIS Verified 05/03/25 13:52 penicillin V Allergy Unknown anaphylaxis Verified 05/03/25 13:52 Active Medications: Current Medications Acetaminophen (Acetaminophen 325 Mg Tablet) 650 mg PO Q6H PRN PRN Reason: Pain, Mild 1-3,fever,headache Amlodipine Besylate (Amlodipine Besylate 10 Mg Tablet) 10 mg PO DAILY [facility]; Protocol Last Admin: 05/03/25 09:11 Dose: 10 mg Aspirin (Aspirin 81 Mg Tab.Chew) 81 mg PO DAILY [facility] Last Admin: 05/03/25 13:32 Dose: Not Given Calcium Carbonate (Calcium Carbonate 750 Mg Tab.Chew) 750 mg PO Q4H PRN PRN Reason: Heartburn Levofloxacin (Levaquin) 750 mg in 150 mls @ 100 mls/hr IV Q24H [facility] Last Infusion: 05/03/25 01:29 Dose: Infused Metronidazole (Flagyl) 500 mg in 100 mls @ 100 mls/hr IV Q8H [facility] Last Infusion: 05/03/25 07:12 Dose: Infused Losartan Potassium (Losartan Potassium 50 Mg Tablet) 50 mg PO DAILY [facility]; Protocol Last Admin: 05/03/25 13:33 Dose: Not Given Magnesium Hydroxide (Milk Of Magnesia 30 Ml Oral.Susp) 30 ml PO DAILY PRN PRN Reason: Constipation Melatonin (Melatonin 3 Mg Tablet) 6 mg PO BEDTIME PRN PRN Reason: Insomnia Last Admin: 05/02/25 23:06 Dose: 6 mg Metoprolol Tartrate (Metoprolol Tartrate 50 Mg Tablet) 50 mg PO BID [facility]; Protocol Last Admin: 05/03/25 09:11 Dose: 50 mg Morphine Sulfate (Morphine Sulfate 4 Mg/Ml Cartridge) 4 mg IVPUSH Q4H PRN; Protocol PRN Reason: Pain, Severe (Pain Scale 7-10) Multivitamins/Vitamin C (Multivitamin Tablet) 1 tab PO DAILY [facility] Last Admin: 05/03/25 09:11 Dose: 1 tab Sodium Chloride (0.9 % Sodium Chloride Flush 3 Ml Syringe) 3 ml IVFLUSH QSHIFT [facility] Last Admin: 05/03/25 09:10 Dose: 3 ml Trazodone HCl (Trazodone Hcl 25 Mg Halftab) 25 mg PO BEDTIME MRX1 PRN PRN Reason: Sleep Last Admin: 05/02/25 23:06 Dose: 25 mg Home Medications ?Medication ?Instructions ?Recorded ?Confirmed ?Last Taken ?Type acetaminophen 325 mg tablet 325 mg PO Q6H PRN Pain 04/30/25 Unknown H istory aspirin 81 mg tablet 81 mg PO DAILY 04/30/2504/05 Unknown History ibuprofen 200 mg tablet (Advil) 200 mg PO Q8H PRN Pain 04/30/25 04/30/25 Unknown History multivitamin 1 tab PO DAILY 04/30/2504/05 Unknown History Exam Height,Weight and Vital Signs: Height 6 ft 3 in Weight 97.6 kg Last Vital Signs Temp 98.2 F 05/03/25 13:52 Pulse 61 05/03/25 13:52 Resp 16 05/03/25 13:52 BP 180/56 H 05/03/25 13:52 Pulse Ox 94 05/03/25 13:52 O2 Del Method Room Air 05/03/25 13:52 O2 Flow Rate 2 05/02/25 03:44 Pertinent Lab Results Pertinent Lab Results: Laboratory Tests 04/29/25 04/30/2525 23:44 00:01 02:03 WBC 10.7 RBC 4.06 L Hgb 13.0 L Hct 37.3 L MCV 91.9 MCH 32.0 MCHC 34.9 RDW 13.3 Plt Count 142 L MPV 10.3 Immature Gran % (Auto) 0.3 Neut % (Auto) 95.3 H Lymph % (Auto) 2.4 L [place] % (Auto) 1.7 L Eos % (Auto) 0.1 Baso % (Auto) 0.2 Lymph # (Auto) 0.3 L [place] # (Auto) 0.2 Eos # (Auto) 0.0 Baso # (Auto) 0.0 Abs Immat Gran (auto) 0.03 Absolute Neuts (auto) 10.2 H Absolute Nucleated RBC 0.000 Nucleated RBC % (auto) 0.0 Smear Tech's Comments VERIFIED Hold Purple Top PT 13.5 H INR 1.2 H aPTT Heparin Protocol Sodium 135 Potassium 4.2 Chloride 103 Carbon Dioxide 24 Anion Gap 12 BUN 19 H Creatinine 0.87 Estim Creat Clear Calc 79.8 Estimated GFR > 60 Random Glucose 137 H Lactic Acid 1.7 Calcium 9.1 Magnesium 1.7 Total Bilirubin 4.8 H Direct Bilirubin 3.2 H AST 257 H ALT 279 H Alkaline Phosphatase 372 H Total Creatine Kinase Troponin I High Sens 119.3 H* 344.8 H* D C-Reactive Protein 4.46 H B-Natriuretic Peptide 186 H Total Protein 6.6 Albumin 3.7 Lipase 17 Urine Color Urine Appearance Urine pH Ur Specific [place] Urine Protein Urine Glucose (UA) Urine Ketones Urine Blood Urine Nitrite Ur Leukocyte Esterase Urine RBC Urine WBC Ur Squamous Epith Cells Urine Bacteria Hyaline Casts Ethyl Alcohol < 10 Influenza Type A (PCR) NEGATIVE Influenza Type B (PCR) NEGATIVE RSV RNA Qual (PCR) NEGATIVE SARS-CoV-2 RNA (RT-PCR) NEGATIVE 04/30/25 04/30/25 04/30/25 02:36 04:18 11:02 WBC RBC Hgb Hct MCV MCH MCHC RDW Plt Count MPV Immature Gran % (Auto) Neut % (Auto) Lymph % (Auto) [place] % (Auto) Eos % (Auto) Baso % (Auto) Lymph # (Auto) [place] # (Auto) Eos # (Auto) Baso # (Auto) Abs Immat Gran (auto) Absolute Neuts (auto) Absolute Nucleated RBC Nucleated RBC % (auto) Smear Tech's Comments Hold Purple Top PT INR aPTT Heparin Protocol 34.3 L Sodium Potassium Chloride Carbon Dioxide Anion Gap BUN Creatinine Estim Creat Clear Calc Estimated GFR Random Glucose Lactic Acid Calcium Magnesium Total Bilirubin Direct Bilirubin AST ALT Alkaline Phosphatase Total Creatine Kinase 94 Troponin I High Sens 439.8 H* C-Reactive Protein B-Natriuretic Peptide Total Protein Albumin Lipase Urine Color Dark Yellow Urine Appearance Clear Urine pH 5.5 Ur Specific [place] 1.025 Urine Protein 30 (1+) H Urine Glucose (UA) Negative Urine Ketones Negative Urine Blood Large (3+) H Urine Nitrite Positive H Ur Leukocyte Esterase Small (1+) H Urine RBC 11-20 H Urine WBC 0-5 Ur Squamous Epith Cells 3-5 Urine Bacteria 1+ Hyaline Casts 0-2 Ethyl Alcohol Influenza Type A (PCR) Influenza Type B (PCR) RSV RNA Qual (PCR) SARS-CoV-2 RNA (RT-PCR) 04/30/25 05/01/25 05/01/25 18:33 00:47 06:25 WBC 5.5 RBC 3.88 L Hgb 12.4 L Hct 35.9 L MCV 92.5 MCH 32.0 MCHC 34.5 RDW 13.3 Plt Count 119 L MPV 11.0 Immature Gran % (Auto) Neut % (Auto) Lymph % (Auto) [place] % (Auto) Eos % (Auto) Baso % (Auto) Lymph # (Auto) [place] # (Auto) Eos # (Auto) Baso # (Auto) Abs Immat Gran (auto) Absolute Neuts (auto) Absolute Nucleated RBC 0.000 Nucleated RBC % (auto) 0.0 Smear Tech's Comments Hold Purple Top PT 13.6 H INR 1.2 H aPTT Heparin Protocol 54.8 D 49.6 L Sodium 138 Potassium 3.8 Chloride 106 Carbon Dioxide 24 Anion Gap 12 BUN 15 Creatinine 0.65 Estim Creat Clear Calc 106.2 Estimated GFR > 60 Random Glucose 82 Lactic Acid Calcium 8.6 Magnesium 1.8 Total Bilirubin 2.4 H Direct Bilirubin AST 99 H ALT 162 H Alkaline Phosphatase 267 H Total Creatine Kinase Troponin I High Sens C-Reactive Protein B-Natriuretic Peptide Total Protein 5.8 L Albumin 3.1 L Lipase Urine Color Urine Appearance Urine pH Ur Specific [place] Urine Protein Urine Glucose (UA) Urine Ketones Urine Blood Urine Nitrite Ur Leukocyte Esterase Urine RBC Urine WBC Ur Squamous Epith Cells Urine Bacteria Hyaline Casts Ethyl Alcohol Influenza Type A (PCR) Influenza Type B (PCR) RSV RNA Qual (PCR) SARS-CoV-2 RNA (RT-PCR) 05/01/25 05/01/25 05/01/25 07:31 07:37 14:16 WBC RBC Hgb Hct MCV MCH MCHC RDW Plt Count MPV Immature Gran % (Auto) Neut % (Auto) Lymph % (Auto) [place] % (Auto) Eos % (Auto) Baso % (Auto) Lymph # (Auto) [place] # (Auto) Eos # (Auto) Baso # (Auto) Abs Immat Gran (auto) Absolute Neuts (auto) Absolute Nucleated RBC Nucleated RBC % (auto) Smear Tech's Comments Hold Purple Top SEE NOTE PT INR aPTT Heparin Protocol 59.5 43.8 L D Sodium Potassium Chloride Carbon Dioxide Anion Gap BUN Creatinine Estim Creat Clear Calc Estimated GFR Random Glucose Lactic Acid Calcium Magnesium Total Bilirubin Direct Bilirubin AST ALT Alkaline Phosphatase Total Creatine Kinase Troponin I High Sens C-Reactive Protein B-Natriuretic Peptide Total Protein Albumin Lipase Urine Color Urine Appearance Urine pH Ur Specific [place] Urine Protein Urine Glucose (UA) Urine Ketones Urine Blood Urine Nitrite Ur Leukocyte Esterase Urine RBC Urine WBC Ur Squamous Epith Cells Urine Bacteria Hyaline Casts Ethyl Alcohol Influenza Type A (PCR) Influenza Type B (PCR) RSV RNA Qual (PCR) SARS-CoV-2 RNA (RT-PCR) 05/01/25 05/02/25 05/02/25 20:53 03:05 06:33 WBC 5.7 RBC 4.03 L Hgb 12.9 L Hct 37.2 L MCV 92.3 MCH 32.0 MCHC 34.7 RDW 13.3 Plt Count 143 L MPV 10.9 Immature Gran % (Auto) Neut % (Auto) Lymph % (Auto) [place] % (Auto) Eos % (Auto) Baso % (Auto) Lymph # (Auto) [place] # (Auto) Eos # (Auto) Baso # (Auto) Abs Immat Gran (auto) Absolute Neuts (auto) Absolute Nucleated RBC 0.000 Nucleated RBC % (auto) 0.0 Smear Tech's Comments Hold Purple Top PT INR aPTT Heparin Protocol 58.7 D 57.7 Sodium 140 Potassium 3.8 Chloride 105 Carbon Dioxide 26 Anion Gap 13 BUN 10 Creatinine 0.62 Estim Creat Clear Calc 111.3 Estimated GFR > 60 Random Glucose 90 Lactic Acid Calcium 8.9 Magnesium Total Bilirubin 1.4 H Direct Bilirubin 0.9 H AST 62 H ALT 129 H Alkaline Phosphatase 265 H Total Creatine Kinase Troponin I High Sens C-Reactive Protein B-Natriuretic Peptide Total Protein 6.0 L Albumin 3.3 L Lipase Urine Color Urine Appearance Urine pH Ur Specific [place] Urine Protein Urine Glucose (UA) Urine Ketones Urine Blood Urine Nitrite Ur Leukocyte Esterase Urine RBC Urine WBC Ur Squamous Epith Cells Urine Bacteria Hyaline Casts Ethyl Alcohol Influenza Type A (PCR) Influenza Type B (PCR) RSV RNA Qual (PCR) SARS-CoV-2 RNA (RT-PCR) 05/03/25 06:21 WBC 5.1 RBC 3.83 L Hgb 12.2 L Hct 35.7 L MCV 93.2 MCH 31.9 MCHC 34.2 RDW 13.1 Plt Count 157 L MPV 10.5 Immature Gran % (Auto) Neut % (Auto) Lymph % (Auto) [place] % (Auto) Eos % (Auto) Baso % (Auto) Lymph # (Auto) [place] # (Auto) Eos # (Auto) Baso # (Auto) Abs Immat Gran (auto) Absolute Neuts (auto) Absolute Nucleated RBC 0.000 Nucleated RBC % (auto) 0.0 Smear Tech's Comments Hold Purple Top PT INR aPTT Heparin Protocol 32.4 L D Sodium 140 Potassium 3.7 Chloride 105 Carbon Dioxide 29 Anion Gap 10 L BUN 10 Creatinine 0.70 Estim Creat Clear Calc 98.6 Estimated GFR > 60 Random Glucose 102 Lactic Acid Calcium 8.9 Magnesium Total Bilirubin 1.3 H Direct Bilirubin 0.8 H AST 55 H ALT 107 H Alkaline Phosphatase 254 H Total Creatine Kinase Troponin I High Sens C-Reactive Protein B-Natriuretic Peptide Total Protein 5.8 L Albumin 3.1 L Lipase Urine Color Urine Appearance Urine pH Ur Specific [place] Urine Protein Urine Glucose (UA) Urine Ketones Urine Blood Urine Nitrite Ur Leukocyte Esterase Urine RBC Urine WBC Ur Squamous Epith Cells Urine Bacteria Hyaline Casts Ethyl Alcohol Influenza Type A (PCR) Influenza Type B (PCR) RSV RNA Qual (PCR) SARS-CoV-2 RNA (RT-PCR) Airway Mallampati Class: II TM Dist: >3cm Neck ROM: Full Denture: Upper and Lower Heart: rrr Lungs: cta Assessment and Plan Assessment Anesthesia Assessment: Anesthesia Plan Discussed and Chart Reviewed Final Anesthetic Review Family History of Problems with Anesthesia: No History of Problems with Anesthesia: No NPO: Yes ASA Class: III Final Preanesthetic Review: No Changes in Pt Med Stat, Meds/Allgs Chart Reviewed and Consent Obtained/Reviewed Patient Risk: Intermediate Procedure Risk: Intermediate Anesthetic Plan Anesthetic Plan: GA Disposition: Standard PACU
--- NOTE | 2025-05-03 17:16 | W.PM.OPN ---
Operative Note Operative Note Date of Service: 05/03/25 Narrative: Description:?Endoscopic retrograde cholangiopancreatography (ERCP) and upper endoscopy PROCEDURE: ? 1/ upper endoscopy 2/Endoscopic retrograde cholangiopancreatography and sphincterotomy, with stone extraction, spyglass and stent placement INDICATION FOR THE PROCEDURE:?Patient with a history of choledocholithiasis and acute cholangitis. MEDICATIONS:?General anesthesia. The risks of the procedure were made aware to the patient and consisted of medication reaction, bleeding, perforation, aspiration, and post ERCP pancreatitis. DESCRIPTION OF PROCEDURE:?After informed consent and appropriate sedation, an upper endoscope was passed to confirm the patient anatomy and location of the pylorus. mild duodenitis was noted. The duodenoscope was inserted into the oropharynx, down the esophagus, and into the stomach. The scope was then advanced through the pylorus to the ampulla. The CBD was selectively cannulated with wire guided approach and a cholangiogram was obtained. The cholangiogram was formally interpreted and documented, and confirmed placement with filling defects noted in mid CBD with a dilated duct to about 14 mm. A sphincterotomy was performed to facilitate stone removal, ductal clearance and enlarge the orifice beyond standard cannulation. After this a extraction basket was used to extract sludge and greenish yellow stone debris material, with a large stone chunk removed measuring about 15 mm. Spyglass was used to confirm the radiographic findings and no stone material was noted, but debris could still be seen which was hard to flush with irrigation. A 8.5 Fr x 12 cm plastic stent was then inserted with excellent drainage noted. The procedure was then terminated. Intraop cholangiogram reivew and interpretation by performing physician: Dilated CBD with filling defect in mid CBD consistent with choledocholithiasis. CBD measured about 14 mm. No stricture or leak seen. FINDINGS: 1. Choledocholithiasis 2. duodenitis RECOMMENDATIONS: 1. clears today and advance diet tomorrow as tolerated. 2. if worsening abdo pain NPO and check lipase. 3. can continue aspirin, if plavix needed can start in 2-3 days
[2025-05-04 03:20] VITALS: BP 166/72; PULSE 69; RESP 18; TEMP 36.7; O2SAT 96
[2025-05-04] MEDS: metroNIDAZOLE/NS 500 MG/100 ML PIGGYBACK 100 MG IV (06:01)
[2025-05-04 07:07] LABS: Alanine Aminotransferase 115 U/L (0-40); Albumin Level 3.2 g/dL (3.5-5.0); Alkaline Phosphatase 247 U/L (39-117); Aspartate Amino Transferase 88 U/L (5-37); Total Protein 5.9 g/dL (6.5-8.0)
[2025-05-04 07:24] VITALS: BP 145/59; PULSE 61; RESP 16; TEMP 36.4; O2SAT 95
[2025-05-04] MEDS: 0.9 % Sodium Chloride Flush 3 ML SYRINGE IVFLUSH ×2 (09:41→16:12)
--- NOTE | 2025-05-04 10:55 | PM.DS ---
DS: Providers Provider Date of Service: 05/05/25 Date of admission: 04/30/25 09:04 Date of discharge: 05/04/25 Primary care physician: KEYON Denton Consults: 04/30/25 09:05 Consult to Cardiology Routine Consulting Provider: [facility] Reason for consultation: elevated trops, likely needs ERCP 04/30/25 09:06 Consult to Gastroenterology Routine Consulting Provider: David Silva Reason for consultation: concern for cholangitis DS: Diagnosis Discharge Diagnosis (1) Acute cholangitis: Status: Acute DS: Summary Hospital Course Hospital Course: admission hpi Chief Complaint: fall, chills The patient is a 80-year-old male who denies any significant past medical history and presents to the emergency room with what appears to be a mechanical fall. The patient states that after ambulating back from the bathroom while attempting to sit, his chair gave out and he fell backwards striking his back, head/neck. He denies any loss of consciousness. He denies any prodromal cardiac symptoms. Upon further questioning, the patient endorses chills on the evening prior to hospitalization. He reports chronic urinary frequency/urgency and denies any change. He reports feeling uneasy/queasy but denies any abdominal pain. He denies any diarrhea nausea or vomiting. He denies any prior history of cholecystectomy. He denies any history of heavy alcohol use, reporting that he has not drank in years. He denies any chest pain, shortness of breath. He denies any headache or neck pain. He does report lower back pain. In the emergency room his workup revealed the following: Chemistry showed obstructive jaundice with a total bilirubin of 4.8, AST 257, ALT 279, alk phos 372, INR 1.2; CBC showed no leukocytosis but he does have a left shift and bandemia. His troponins are elevated with initial value of 119 > 344 > 439; EKG without any acute ischemic changes; patient denying any anginal symptoms The patient was treated with the sepsis fluid bolus, IV Levaquin and IV Flagyl; the ED team has discussed his case with Gastroenterology. The patient will be admitted for further work up and treatment. Hospital course: He presented with fall, chills and found to have cholangitis and NSTEMI. He Completed 48 hours of IV heparin for NSTEMI, no wall motion abnormality on echo. We will need ischemic workup outpatient. He had been treated with Flagyl and Levaquin for cholangitis, blood culture was positive for E.coli and he will complate 10 days of levaquin. He had ERCP with sphycterectomy and stone extraction on 05/03 and is doing well post op, diet advanced to regular diet. He already had gallbladder removal decades ago. New PCP appt 06/28 Time Attestation Discharge Coordination Time (in mins): 440 Quality: Safe Use of Opioids Does Pt have an Active Cancer Diagnosis on the Problem List?: No Quality: Stroke Does the patient have a stroke diagnosis?: No Physical Exam Vital Signs: Vital Signs: Selected Entries 05/05/25 11:32 Temperature 98.1 F Pulse Rate 58 Respiratory Rate 18 Blood Pressure 156/62 H Pulse Oximetry 97 Oxygen Delivery Me thod Room Air DS: Data Data Completed and Pending Labs on day of discharge: Laboratory Results - last 24 hr 05/04/25 06:04 Hold Purple Top SEE NOTE Total Bilirubin 1.1 H Direct Bilirubin 0.7 H AST 88 H ALT 115 H Alkaline Phosphatase 247 H Total Protein 5.9 L Albumin 3.2 L Preliminary micro results at discharge 04/29/25 23:44 Blood Culture - Preliminary Blood - Venous No growth after 48 hours. Discharge Plan Discharge Anticipated Discharge Date/Time: 05/05/25 11:42 Patient Disposition: Home, Self-Care Discharge Diagnosis: NSTEMI, Cholangitis, choledocoholithias Referrals: Michael Villasenor FNP-C [Primary Care Provider, Internal Medicine] - 06/28/25 8:30 am Discharge Medications: New levofloxacin 750 mg tablet 7 mg PO DAILY 7 Days Qty: 8 0RF Continued multivitamin Tablet 1 tab PO DAILY acetaminophen 325 mg Tablet 325 mg PO Q6H PRN (Reason: Pain) ibuprofen [Advil] 200 mg Tablet 200 mg PO Q8H PRN (Reason: Pain) aspirin 81 mg Tablet 81 mg PO DAILY Discharge Orders: Discharge Order (Routine); Ordered 05/05/25 Ordered By: Yuan Miranda Diet: Advance to usual diet Activity on Discharge: As tolerated Stand Alone Forms: Patient Portal Discharge page Print Language: Bhutanese Care Plan Goals: recovery from cholangitis Health Concerns: cholangitis choledocholithiasis uti Plan of Treatment: take levaquin and flagyl as directed follow up with your primary care doctor as scheduled Assessment: see above
[2025-05-04 11:51] VITALS: BP 140/51; PULSE 51; RESP 17; TEMP 36.6; O2SAT 97
--- NOTE | 2025-05-04 14:14 | HO.POSTANES ---
Post Anesthesia Evaluation Post Anesthesia Evaluation Date of Service: 05/04/25 Vital Signs: Vital Signs Temp Pulse Resp BP Pulse Ox O2 Del Method O2 Flow Rate 05/04/25 11:51 98 F 51 17 140/51 H 97 Room Air 05/04/25 07:24 97.6 F 61 16 145/59 H 95 Room Air 05/04/25 03:20 98.1 F 69 18 166/72 H 96 Nasal Cannula 3 Anesthesia: General Mental Status: Awake Pain Control: Satisfactory Nausea/Vomiting: None Hydration: Adequate Anesthesia-Related Issues: No Anes. Related Issues
[2025-05-04 14:59] VITALS: BP 134/62; PULSE 58; RESP 18; TEMP 36.4; O2SAT 94
--- NOTE | 2025-05-04 17:11 | P.PNIM_ITS ---
Subjective Subjective Date of Service: 05/04/25 Interval History: Seen and examined this morning Follow-up for cholangitis, NSTEMI Slept better overnight Denies abdominal pain at this time. No chest Physical Exam 2 Vital Signs: Vital Signs: Last Vital Signs Temp 97.6 F 05/04/25 14:59 Pulse 58 05/04/25 14:59 Resp 18 05/04/25 14:59 BP 134/62 05/04/25 14:59 Pulse Ox 94 05/04/25 14:59 O2 Del Method Room Air 05/04/25 14:59 O2 Flow Rate 3 05/04/25 03:20 BMI result Body Mass Index 30.9 Objective Data Active Medications Acetaminophen (Acetaminophen 325 Mg Tablet) 650 mg PO Q6H PRN PRN Reason: Pain, Mild 1-3,fever,headache Amlodipine Besylate (Amlodipine Besylate 10 Mg Tablet) 10 mg PO DAILY [facility]; Protocol Last Admin: 05/04/25 09:31 Dose: 10 mg Documented By: MILA Aspirin (Aspirin 81 Mg Tab.Chew) 81 mg PO DAILY [facility] Last Admin: 05/04/25 09:32 Dose: 81 mg Documented By: MILA Calcium Carbonate (Calcium Carbonate 750 Mg Tab.Chew) 750 mg PO Q4H PRN PRN Reason: Heartburn Levofloxacin (Levofloxacin 750 Mg Tablet) 750 mg PO Q24H [facility] Losartan Potassium (Losartan Potassium 50 Mg Tablet) 50 mg PO DAILY [facility]; Protocol Last Admin: 05/04/25 09:32 Dose: 50 mg Documented By: MILA Magnesium Hydroxide (Milk Of Magnesia 30 Ml Oral.Susp) 30 ml PO DAILY PRN PRN Reason: Constipation Melatonin (Melatonin 3 Mg Tablet) 6 mg PO BEDTIME PRN PRN Reason: Insomnia Last Admin: 05/02/25 23:06 Dose: 6 mg Documented By: LISANDRO-RAFAT Metoprolol Tartrate (Metoprolol Tartrate 50 Mg Tablet) 50 mg PO BID [facility]; Protocol Last Admin: 05/04/25 09:31 Dose: 50 mg Documented By: MILA Metronidazole (Metronidazole 500 Mg Tablet) 500 mg PO Q8H [facility] Last Admin: 05/04/25 16:10 Dose: 500 mg Documented By: MILA Morphine Sulfate (Morphine Sulfate 4 Mg/Ml Cartridge) 4 mg IVPUSH Q4H PRN; Protocol PRN Reason: Pain, Severe (Pain Scale 7-10) Multivitamins/Vitamin C (Multivitamin Tablet) 1 tab PO DAILY [facility] Last Admin: 05/04/25 09:32 Dose: 1 tab Documented By: MILA Naloxone HCl (Naloxone Hcl 0.4 Mg/Ml Vial) 0.04 mg IVPUSH Q5M PRN PRN Reason: Excessive sedation or RR < 8 Sodium Chloride (0.9 % Sodium Chloride Flush 3 Ml Syringe) 3 ml IVFLUSH QSHIFT COLIN Last Admin: 05/04/25 16:12 Dose: 3 ml Documented By: MILA Trazodone HCl (Trazodone Hcl 25 Mg Halftab) 25 mg PO BEDTIME MRX1 PRN PRN Reason: Sleep Last Admin: 05/02/25 23:06 Dose: 25 mg Documented By: LISANDRO-RAFAT Labs 05/03/25 06:21 05/03/25 06:21 Labs: Laboratory Results - last 24 hr 05/04/25 06:04 Hold Purple Top SEE NOTE Total Bilirubin 1.1 H Direct Bilirubin 0.7 H AST 88 H ALT 115 H Alkaline Phosphatase 247 H Total Protein 5.9 L Albumin 3.2 L Assessment and Plan (1) NSTEMI (non-ST elevated myocardial infarction): Status: Acute (2) Acute cholangitis: Status: Acute Plan 80 yo M who reports no chronic medical issue (on baby asa + MVI only) who presents after a mechanical fall, preceed by shaking chills. Work up in the ED is consistent with sepsis secondary to cholangitis + demand ischemia. Severe Sepsis secondary to cholangitis (RUQ pain, jaundice and fever) and GNR bacteremia Met sepsis criteria with Bandemia, fevers, tachycardia; severe features of hyperbilirubinemia continue IV levaquin/flagyl (PCN allergy - anaphylaxis documented) MRCP showing choledocholithiasis resulting in moderate to severe intra and extrahepatic biliary ductal dilation GI following 1/2 BCx growing e.coli - due to penicillin allergy likely home with 2 weeks of levofloxacin LFTs trending down, continue to follow Had ERCP sphynterectomy and stone extraction 05/03 Elevated trops due to type 2 IL from demand ischemia. no chest pain echo with no WMA seen by cardiology -continue IV heparin gtt x 48 hours, metoprolol, statin on hold for elevated LFTs, asa okay per GI statin on discharge will need outpatient ischemic workup Considered intermediate to high cardiac risk for planned procedure Surgery consult, US stays surgically absent gallblader, patient he had neverhad gallbladder surgey NSVT brief run lopressor 50 bid echo with preserved EF Elevated BP denies history of HTN; outpt notes from 2020 indicate he was on norvasc/hctz bp remains elevated continue norvasc and metoprolol, added losartan Full Code Endorses significant other has HCP DVT pptx - heparin drip, then hold chemoprophylaxis until after procedure Requires ongoing inpatient stay for management of NSTEMI and plan for ERCP for acute cholangitis Quality Stroke Does the patient have a stroke diagnosis?: No VTE Prior VTE?: No VTE Risk Level:: Medical - moderate - high VTE Device Contraindication: N/A - Device Ordered VTE Drug Contraindication: N/A - Med Ordered
[2025-05-04 19:11] VITALS: BP 152/67; PULSE 65; RESP 18; TEMP 36.7; O2SAT 96
[2025-05-05] VITALS: BP 167/71; PULSE 52; RESP 16; TEMP 37; O2SAT 96
[2025-05-05 03:39] VITALS: BP 145/67; PULSE 73; RESP 16; TEMP 37; O2SAT 94
[2025-05-05 07:16] VITALS: BP 178/78; PULSE 64; RESP 16; TEMP 36.4; O2SAT 97
--- NOTE | 2025-05-05 09:16 | PM.CNGS ---
History of Present Illness Consult details Consult date: 05/05/25 Requesting physician: Yuan Miranda Narrative: 80 year old male who initially presented to the ED after a mechanical fall, preceeded by shaking chills. He was found to have sepsis secondary to cholangitis, AR secondary demand ischemia and he was admitted to the hospitalist service. He underwent ERCP and sphincterotomy, stent placement for the CBD stones. Imaging reports state gallbladder surgically absent however patient adamently denies having his gallbladder reviewed. General surgery was consult regarding his gallbladder. Upon questioning this morning, he reports two prior abd surgeries. He reports laparoscopic hiatal hernia repair about 35 years ago and ventral hernia repair. He states no one ever told him his gallbladder was removed. Review of Systems Review of Systems: Yes all other systems are reviewed and are negative [facility] Surgical History Surgical History (Updated 05/03/25 @ 13:51 by Sarah Boucher RN) History of repair of hiatal hernia H/O elbow surgery H/O wrist surgery Previous back surgery Social History Social History Household Members: Significant Other Housing: Apartment Are you a primary senior care manager to a significant other at home: No Do you presently have visiting nurse or other home services: No Alcohol intake: former Comment: patient refusing fall precautions (bed alarm) Patient Tobacco Use Status: Current everyday Tobacco user Tobacco use type: Cigarette Cigarettes Per Day: 3 Years Smoked: 64 Advance Directives Date on File: 05/01/25 service: No Meds Allergies Allergy/AdvReac Type Severity Reaction Status Date / Time Penicillins (PENICILLINS) Allergy Severe ANAPHYLAXIS Verified 05/03/25 13:52 penicillin V Allergy Unknown anaphylaxis Verified 05/03/25 13:52 Active Medications: Current Medications Acetaminophen (Acetaminophen 325 Mg Tablet) 650 mg PO Q6H PRN PRN Reason: Pain, Mild 1-3,fever,headache Amlodipine Besylate (Amlodipine Besylate 10 Mg Tablet) 10 mg PO DAILY [facility]; Protocol Last Admin: 05/04/25 09:31 Dose: 10 mg Aspirin (Aspirin 81 Mg Tab.Chew) 81 mg PO DAILY [facility] Last Admin: 05/04/25 09:32 Dose: 81 mg Calcium Carbonate (Calcium Carbonate 750 Mg Tab.Chew) 750 mg PO Q4H PRN PRN Reason: Heartburn Levofloxacin (Levofloxacin 750 Mg Tablet) 750 mg PO Q24H [facility] Last Admin: 05/04/25 21:06 Dose: 750 mg Losartan Potassium (Losartan Potassium 50 Mg Tablet) 50 mg PO DAILY [facility]; Protocol Last Admin: 05/04/25 09:32 Dose: 50 mg Magnesium Hydroxide (Milk Of Magnesia 30 Ml Oral.Susp) 30 ml PO DAILY PRN PRN Reason: Constipation Melatonin (Melatonin 3 Mg Tablet) 6 mg PO BEDTIME PRN PRN Reason: Insomnia Last Admin: 05/02/25 23:06 Dose: 6 mg Metoprolol Tartrate (Metoprolol Tartrate 50 Mg Tablet) 50 mg PO BID [facility]; Protocol Last Admin: 05/04/25 21:06 Dose: 50 mg Morphine Sulfate (Morphine Sulfate 4 Mg/Ml Cartridge) 4 mg IVPUSH Q4H PRN; Protocol PRN Reason: Pain, Severe (Pain Scale 7-10) Multivitamins/Vitamin C (Multivitamin Tablet) 1 tab PO DAILY [facility] Last Admin: 05/04/25 09:32 Dose: 1 tab Naloxone HCl (Naloxone Hcl 0.4 Mg/Ml Vial) 0.04 mg IVPUSH Q5M PRN PRN Reason: Excessive sedation or RR < 8 Sodium Chloride (0.9 % Sodium Chloride Flush 3 Ml Syringe) 3 ml IVFLUSH QSHIFT [facility] Last Admin: 05/05/25 01:04 Dose: Not Given Trazodone HCl (Trazodone Hcl 25 Mg Halftab) 25 mg PO BEDTIME MRX1 PRN PRN Reason: Sleep Last Admin: 05/02/25 23:06 Dose: 25 mg Home Medications ?Medication ?Instructions ?Recorded ?Confirmed ?Last Taken ?Type acetaminophen 325 mg tablet 325 mg PO Q6H PRN Pain 04/30/25 04/30/25 Unknown History aspirin 81 mg tablet 81 mg PO DAILY 04/30/25 04/30/25 Unknown History ibuprofen 200 mg tablet (Advil) 200 mg PO Q8H PRN Pain 04/30/25 04/30/25 Unknown History multivitamin 1 tab PO DAILY 04/30/25 04/30/25 Unknown History Physical Exam Vital Signs: Vital Signs: Last Vital Signs Temp 97.6 F 05/05/25 07:16 Pulse 64 05/05/25 07:16 Resp 16 05/05/25 07:16 BP 178/78 H 05/05/25 07:16 Pulse Ox 97 05/05/25 07:16 O2 Del Method Room Air 05/05/25 07:16 O2 Flow Rate 3 05/04/25 03:20 BMI result Body Mass Index 30.9 Const: General: comfortable, no acute distress and alert Orientation/consciousness: patient oriented x3 Resp: Effort & Inspection: normal respiratory effort GI: Other: very faint and well healed surgical scars at the umbilicus, epigastric and RUQ consistent with cholecystectomy Inspection: Yes normal to inspection Palpation (GI): Soft to palpation, nontender and no guarding Abdomen image:  1. 2. 3. Skin: General skin exam: no rashes or lesions noted Neuro: General: patient oriented x3 and moves all extremities Results Labs 05/03/25 06:21 05/03/25 06:21 Labs: Urine 04/30/25 Range/Units 02:36 Urine Color Dark Yellow Urine Appearance Clear Urine pH 5.5 (5.0-9.0) Ur Specific [place] 1.025 (1.005-1.025) Urine Protein 30 (1+) H (Neg-Trace) mg/dL Urine Glucose (UA) Negative (Negative) mg/dL All other labs normal. Imaging Abdomen CT scan report/results: report reviewed and image reviewed Additional studies: MRCP reviewed Assessment and Plan (1) S/P cholecystectomy: Status: Acute (2) Acute cholangitis: Status: Acute Plan 80 year old male who initially presented to the ED after a mechanical fall, preceeded by shaking chills, found to have sepsis secondary to cholangitis and CBD stones, subsequently underwent ERCP with stone extraction. On admission CT scan abd/pelvis, surgical clips are present within the gallbladder fossa without gallbladder present, and gallbladder absent on MRCP as well. He does have abdominal scars consistent with a laparoscopic cholecystectomy or this may have been performed during repair of his hiatal hernia. Gallbladder surgically absent, no further intervention needed. CBD stones therefore likely primary in nature. Procedures Date of Service Date of Service: 05/05/25
[2025-05-05] MEDS: 0.9 % Sodium Chloride Flush 3 ML SYRINGE IVFLUSH (09:46)
[2025-05-05 11:32] VITALS: BP 156/62; PULSE 58; RESP 18; TEMP 36.7; O2SAT 97
--- NOTE | 2025-05-05 11:54 | MHC.CM.PN ---
Patient has been medically cleared for dc to home today, self care.
--- NOTE | 2025-05-06 11:52 | MHC.CM.PN ---
POST DC NOTE, PT'S S.O. FERNANDO CALLED CM AND REPORTED PT DID NOT RECEIVE SCRIPTS HIS NEW CARDIAC/CHOLESTEROL MEDS, HOSPITALIST UPDATED AND SCRIPTS SENT TO PREFERRED [facility], FERNANDO UPDATED AT 11:50AM #ON FILE.
== END 2025-05-05 14:02 | disposition home or self-care (01) | DRG 871 ==
LOC: HO.ED 04-30 08:47 → HO.EDOVER 04-30 09:18 → HO.IMC 05-01 02:33
PROVIDERS: Emergency Medicine; Internal Medicine; Internal Medicine Gastroenterology; Nurse Practitioner Family; Physician Assistant Medical; Student in an Organized Health Care Education/Training Program; Admitting Provider Family Medicine; Emergency Provider Emergency Medicine; Visit Provider Internal Medicine
PROC: 0FC98ZZ Extirpation of Matter from Common Bile Duct, Via Natural or Artificial Opening Endoscopic (ICD-10-PCS; CPT 43260; principal; 2025-05-03 14:30)
DX: A41.9 Sepsis, unspecified organism (principal); I21.A1 Myocardial infarction type 2; I47.20 Ventricular tachycardia, unspecified; K80.32 Calculus of bile duct with acute cholangitis without obstruction; N39.0 Urinary tract infection, site not specified; F17.210 Nicotine dependence, cigarettes, uncomplicated; W19.XXXA Unspecified fall, initial encounter; I35.1 Nonrheumatic aortic (valve) insufficiency; K29.80 Duodenitis without bleeding; I25.10 Atherosclerotic heart disease of native coronary artery without angina pectoris; R65.20 Severe sepsis without septic shock; I10 Essential (primary) hypertension; Z20.822 Contact with and (suspected) exposure to COVID-19; Z71.6 Tobacco abuse counseling; Z79.82 Long term (current) use of aspirin; Z79.899 Other long term (current) drug therapy
CPT/HCPCS: 0241U; 36415; 70450; 71046; 72100; 72125; 74177; 74181; 76705; 80048; 80053; 80076; 80307; 81001; 82248; 82550; 83605; 83690; 83735; 83880; 84484; 85025; 85027; 85610; 85730; 86140; 87040; 87077; 87086; 87186; 87205; 93005; 93306; 99285; C1887; C2625; J0330; J1610; J1644; J1650; J1836; J1956; J2003; J2250; J2371; J2704; J3010; J3475; J7120; Q9957; Q9967

== ENCOUNTER → 2025-04-29 23:30 | Outpatient (BNV) | payer MEDICAID, SELFPAY | PROVIDERS: Admitting Provider Family Medicine; Emergency Provider Emergency Medicine; Visit Provider Internal Medicine | DX: I44.4 Left anterior fascicular block (principal) | CPT/HCPCS: 93010 ==

== ENCOUNTER → 2025-04-30 09:04 | Outpatient (BNV) | payer MEDICAID, SELFPAY | PROVIDERS: Admitting Provider Family Medicine; Emergency Provider Emergency Medicine; Visit Provider Internal Medicine Gastroenterology | DX: K83.09 Other cholangitis (principal) | CPT/HCPCS: 99223 ==

== ENCOUNTER → 2025-04-30 09:04 | Outpatient (BNV) | payer MEDICAID, SELFPAY | PROVIDERS: Admitting Provider Family Medicine; Emergency Provider Emergency Medicine; Visit Provider Internal Medicine | DX: I21.4 Non-ST elevation (NSTEMI) myocardial infarction (principal); I49.3 Ventricular premature depolarization; I10 Essential (primary) hypertension; K83.09 Other cholangitis | CPT/HCPCS: 93010; 99233 ==

== ENCOUNTER → 2025-04-30 09:04 | Outpatient (BNV) | payer MEDICAID, SELFPAY | PROVIDERS: Admitting Provider Family Medicine; Emergency Provider Emergency Medicine; Visit Provider Physician Assistant Surgical | DX: Z90.49 Acquired absence of other specified parts of digestive tract (principal); K83.09 Other cholangitis | CPT/HCPCS: 99222 ==

== ENCOUNTER → 2025-04-30 09:04 | Outpatient (BNV) | payer MEDICAID, SELFPAY | PROVIDERS: Admitting Provider Family Medicine; Emergency Provider Emergency Medicine; Visit Provider Family Medicine | DX: K83.09 Other cholangitis (principal) | CPT/HCPCS: 99223; 99233 ==

== ENCOUNTER → 2025-04-30 | Outpatient (BNV) | payer MEDICAID, SELFPAY | PROVIDERS: Emergency Provider Internal Medicine; Visit Provider Radiology Diagnostic Radiology | DX: R53.1 Weakness (principal); R50.9 Fever, unspecified; R74.01 Elevation of levels of liver transaminase levels; K80.50 Calculus of bile duct without cholangitis or cholecystitis without obstruction; N28.1 Cyst of kidney, acquired; K42.9 Umbilical hernia without obstruction or gangrene; M54.2 Cervicalgia; W19.XXXA Unspecified fall, initial encounter; J34.89 Other specified disorders of nose and nasal sinuses; R94.5 Abnormal results of liver function studies; M47.816 Spondylosis without myelopathy or radiculopathy, lumbar region; R05.9 Cough, unspecified; R68.83 Chills (without fever) | CPT/HCPCS: 70450; 71046; 72100; 72125; 74177; 74181; 76705 ==

== ENCOUNTER → 2025-06-01 09:23 | Outpatient (REF) | payer MEDICAID, SELFPAY ==
--- NOTE | ~2025-06-01 | NM_ITS ---
Lexiscan Myocardial perfusion study Indication: NSTEMI to evaluate for myocardial ischemia Technique: The patient was brought in for a Lexiscan perfusion study on 06/01/2025 and was injected 0.4 mg of Lexiscan intravenously. Within a minute of this injection 40 mCi of sestamibi was given intravenously. Images were obtained using the SPECT gamma camera interlaced with the gating device. Images were obtained in supine position. Resting perfusion study was performed on 06/02/2025. Patient was administered 40 mCi of sestamibi intravenously at rest. Images were then obtained in supine position. Images obtained without without CT attenuation. Total DLP 117 mGy-cm. Images were processed with the software and compared side to side in short axis, horizontal long axis and vertical long axis views. Findings: The stress perfusion study showed nonattenuated images show severely reduced uptake in the apex as well as mildly reduced uptake in the inferior wall of the LV myocardium. Attenuated corrected images are suboptimal related severely reduced uptake in the apex and mildly reduced uptake in the distal anterior and inferoapical wall of the LV myocardium.. The gated study shows reduced LV systolic function with calculated LVEF of 44%. LV cavity is moderately dilated in size. The gated study shows normal wall thickening and contraction of segments. Resting study shows nonattenuated images show improved uptake in the apex as well as the inferior wall of the LV myocardium. Gating at rest reveals normal systolic wall motion with ejection fraction at 55%. The findings are consistent with severe ischemia of the apex as well as mild ischemia of the inferior wall on nonattenuated images.. NM/NM cardiolite stress test Impression: 1. Myocardial perfusion imaging study shows apical and inferior ischemia 2. Gated LVEF is 44% with stress and 55% with rest 3. Transient ischemic dilatation not present but LV cavity is dilated Nondiagnostic changes on EKG. Electronically signed by: Ed Kenney MD 06/02/2025 05:57 PM EDT
--- NOTE | 2025-06-01 09:27 | CA_ITS ---
Acquisition Time: 2025-06-01 10:06:19 Total Exercise Time: 00:02:00 Test Indications: ELEVATED TROPONINS Medications: SEE H&P Protocol: LEXISCAN Max HR: 94 BPM 67% of Pred: 140 BPM Max BP: 164/76 mmHG Max Work Load: 1.0 METS Pharmacological stress test with Lexiscan while pt marches in his chair, with reports of feeling weird , no chest pain, with frequent PVCs and vent couplets, with normotensive response to injection. Nondiagnostic EKG for ischemia. In recovery, pt gradually feeling back to baseline. Nuclear images pending. Test reviewed with Dr. Kenney. Referred By: Ed Kenney Electronically Signed By: Erik Aponte
== END ==
LOC: HO.CARD 09:23
PROVIDERS: Visit Provider Internal Medicine Cardiovascular Disease
DX: I21.4 Non-ST elevation (NSTEMI) myocardial infarction (principal); I49.3 Ventricular premature depolarization; I10 Essential (primary) hypertension; R79.89 Other specified abnormal findings of blood chemistry
CPT/HCPCS: 78452; 93017; A9500; J0280; J2785

== ENCOUNTER → 2025-06-01 09:27 | Outpatient (BNV) | payer MEDICAID, SELFPAY | DX: I49.3 Ventricular premature depolarization (principal) | CPT/HCPCS: 78452; 93016; 93018 ==

== ENCOUNTER 2025-06-07 14:31 | Outpatient (AMB) | payer MEDICAID, SELFPAY ==
[2025-06-07 14:48] VITALS: BP 132/52; PULSE 58
--- NOTE | 2025-06-07 14:48 | A.OFFVIS_ITS ---
Vital Signs 06/07/25 14:48 Height 6 ft 3 in BP 132/52 L Blood Pressure Location Rt brachial Position Sitting Pulse 58 Pulse Source Pulse Oximeter Intake Visit Reasons: ED Follow up (HS) Hand Coremaker Required: No Overnight Associate: Overnight Associate Present Allergies Penicillins (PENICILLINS) Allergy (Severe, Verified 06/07/25 14:51) ANAPHYLAXIS penicillin V Allergy (Unknown, Verified 06/07/25 14:51) anaphylaxis Medication List - Last Reconciled 06/07/25 by KARYN Cooper acetaminophen 325 mg PO Q6H PRN amlodipine (Norvasc) 10 mg PO DAILY aspirin 81 mg PO DAILY ibuprofen (Advil) 200 mg PO Q8H PRN losartan 50 mg PO DAILY metoprolol tartrate 50 mg PO BID multivitamin 1 tab PO DAILY HPI HPI ED Follow up (HS): Details: Bismark is an 80-year-old male with past medical history of hypertension who was recently admitted to [facility] after having a mechanical fall at home then developing fever and chills. He was found to have cholangitis and positive blood cultures. His troponin levels were elevated to as high as 439.8. He did not report any chest discomfort and EKGs were not ischemic. Echocardiogram showed EF 50-55%, no regional wall motion abnormality. He was treated with antibiotics and underwent ERCP for stone removal and stent placement. An outpatient nuclear stress test was done. Today he reports he has been doing well since his hospital discharge. He is not having any abdominal discomfort. He tells me he will need to have his stent removed at some point. He has had brief episodes of chills a few times since hospital discharge. No fevers reported. No chest discomfort at rest or with activity. No concerning shortness of breath. He says if he goes up his stairs to his 2nd floor apartment briskly he will get short of breath so he takes his time. No PND, orthopnea. He does get bilateral lower leg swelling and wears compression stockings when needed. No heart palpitations, lightheadedness, presyncope, syncope. He has never had a heart problem that he is aware of. Taking all meds as directed. Significant other present. [facility] Medical History (Updated 06/07/25 @ 15:13 by KARYN Cooper) HTN (hypertension) Surgical History S/P cholecystectomy History of repair of hiatal hernia H/O elbow surgery H/O wrist surgery Previous back surgery Social History Household Members: Significant Other Housing: Apartment Are you a primary day care home provider to a significant other at home: No Do you presently have visiting nurse or other home services: No Alcohol intake: former Comment: patient refusing fall precautions (bed alarm) Patient Tobacco Use Status: Current everyday Tobacco user Tobacco use type: Cigarette Cigarettes Per Day: 3 Years Smoked: 64 Advance Directives Date on File: 05/01/25 service: No Review of Systems Const All systems reviewed & are unremarkable except as noted in HPI and below ENT Denies dizziness Card Denies chest pain, Denies chest pain at rest, Denies chest pain with activity, Denies rapid heart rate, Denies pedal edema, Denies edema, Denies leg edema, Denies lightheadedness, Denies palpitations, Denies dyspnea, Denies dyspnea on exertion and Denies orthopnea Resp Denies cough, Denies dyspnea and Denies dyspnea on exertion GI Denies hematochezia and Denies change in stool character Musc Denies abnormal gait, Denies limited range of motion, Denies muscle cramps, Denies muscle weakness, Denies numbness, Denies radiating pain into limb, Denies stiffness and Denies tingling Neuro Denies abnormal gait, Denies dizziness, Denies numbness and Denies tingling Endo Denies palpitations Physical Exam Vital Signs: Last Vital Signs Pulse 58 06/07/25 14:48 BP 132/52 L 06/07/25 14:48 Const General: cooperative, healthy appearing, comfortable and no acute distress Orientation/consciousness: patient oriented x3 Neck Neck: Yes normal visual inspection and Yes no JVD Resp Effort & Inspection: normal respiratory effort Auscultation: clear to auscultation bilaterally, no rales, no rhonchi and no wheezes Cardio Rate: regular rate Rhythm: regular rhythm Heart sounds: S1 normal heart sound present, S2 normal heart sound present, no gallops, no murmurs and no rubs Neuro General: patient oriented x3 Extrem Other: Mildly pitting edema lower legs General: Yes normal to inspection Psych Appearance: grossly normal Mental Status: mental status grossly normal Speech and movement: Normal speech and movement present Assessment & Plan Assessment & Plan (1) NSTEMI (non-ST elevated myocardial infarction): Code(s): I21.4 - Non-ST elevation (NSTEMI) myocardial infarction Category: Medical Plan: Recent hospitalization for noncardiac reasons with finding of elevated troponins to level of NSTEMI, most likely secondary in nature in the setting of bacteremia and cholangitis. No cardiac history. Cardiac risks of age, hypertension. Echocardiogram 04/30/2025 showed EF 50-55%, no regional wall motion abnormality, [id number] aortic regurgitation, ascending aorta 4 cm. Nuclear stress test done 06/01/2025 shows severe apical and mild inferior ischemia. He is asymptomatic. Discussed treatment options including cardiac catheterization and med management. Discussed that he likely has some degree of coronary artery disease and may have some impaired flow 2 areas of the heart muscle. He prefers med management at this time. Signs and symptoms of angina reviewed with him. Continue aspirin indefinitely. Will check LFTs and if normalized will plan to start on statin therapy. Continue amlodipine and metoprolol as dual antianginals. Continue losartan for good blood pressure control. Emergency care if needed for symptoms. Cardiology follow-up 3 months, sooner if needed. (2) Abnormal nuclear stress test: Code(s): R94.39 - Abnormal result of other cardiovascular function study Category: Medical Plan: As above. Results reviewed with patient. (3) HTN (hypertension): Code(s): I10 - Essential (primary) hypertension Category: Medical Qualifiers: Hypertension type: essential hypertension Qualified Code(s): I10 - Essential (primary) hypertension Plan: Blood pressure goal less than 130/80. Controlled at this time. Continue amlodipine, losartan and metoprolol (4) Hospital discharge follow-up: Code(s): Z09 - Encounter for follow-up examination after completed treatment for conditions other than malignant neoplasm Category: Medical Plan: Discharge summary and cardiology consult notes reviewed Plan Time spent on chart review, documentation, interview and assessment Orders: Orders 2 Liver Panel Today R94.39 - Abnormal result of other cardiovascular function study Coding Level of Care Code Est Pt Level 4 (83152) Complex EM visit Add On G2211 Diagnoses NSTEMI (non-ST elevated myocardial infarction) I21.4 Abnormal nuclear stress test R94.39 Essential hypertension I10 Hypertension type: essential hypertension Hospital discharge follow-up Z09 Time Spent (min) 30
== END 2025-06-07 16:03 | disposition home or self-care (01) ==
LOC: HO.HCS 14:32
PROVIDERS: Visit Provider Nurse Practitioner Family
DX: I21.4 Non-ST elevation (NSTEMI) myocardial infarction (principal); R94.39 Abnormal result of other cardiovascular function study; I10 Essential (primary) hypertension; Z09 Encounter for follow-up examination after completed treatment for conditions other than malignant neoplasm
CPT/HCPCS: 99214

== ENCOUNTER 2025-06-07 14:31 | Outpatient (REF) | payer MEDICAID, SELFPAY ==
[2025-06-07 17:37] LABS: Alanine Aminotransferase 19 U/L (0-40); Albumin Level 4.0 g/dL (3.5-5.0); Alkaline Phosphatase 80 U/L (39-117); Aspartate Amino Transferase 24 U/L (5-37); Total Protein 6.7 g/dL (6.5-8.0)
== END 2025-06-07 14:32 | disposition home or self-care (01) ==
LOC: HO.LAB 14:31
PROVIDERS: Visit Provider Nurse Practitioner Family
DX: I21.4 Non-ST elevation (NSTEMI) myocardial infarction (principal); I10 Essential (primary) hypertension; R94.39 Abnormal result of other cardiovascular function study; Z79.899 Other long term (current) drug therapy; F17.210 Nicotine dependence, cigarettes, uncomplicated; Z09 Encounter for follow-up examination after completed treatment for conditions other than malignant neoplasm
CPT/HCPCS: 36415; 80076; 99212

== ENCOUNTER 2025-06-28 08:13 | Outpatient (AMB) | payer MEDICAID, SELFPAY ==
[2025-06-28 08:24] VITALS: BP 110/64; PULSE 58; TEMP 37; O2SAT 96; BMI 28.2
--- NOTE | 2025-06-28 08:24 | A.OFFPC_ITS ---
Vital Signs 06/28/25 08:24 Height 6 ft 3 in Weight 225 lb 8 oz BMI 28.2 BP 110/64 Blood Pressure Location Lt brachial Position Sitting Pulse 58 Pulse Source Pulse Oximeter Temp 98.6 F Temp Source Oral Pulse Oximetry (%) 96 Oxygen Delivery Method Room Air Intake Visit Reasons: PATROL OFFICER-Annual pe Library Acquisitions Technician Required: No Accompanied by: Self / Same As Patient Allergies Penicillins (PENICILLINS) Allergy (Severe, Verified 06/28/25 08:40) ANAPHYLAXIS penicillin V Allergy (Unknown, Verified 06/28/25 08:40) anaphylaxis Medication List - Last Reconciled 06/28/25 by KEYON Denton acetaminophen 325 mg PO Q6H PRN amlodipine (Norvasc) 10 mg PO DAILY aspirin 81 mg PO DAILY atorvastatin (Lipitor) 20 mg PO BEDTIME ibuprofen (Advil) 200 mg PO Q8H PRN losartan 50 mg PO DAILY metoprolol tartrate 50 mg PO BID multivitamin 1 tab PO DAILY Tobacco use date assessed: 06/28/25 Fall risk assessment: 1 Fall in past year Last assessed Fall Risk: 06/28/25 Dental Screening Dental Screen Date: 06/28/25 Did you have a dental visit in the last 12 months?: Yes Did you have a dental problem in the last 6 months where you did not have access to dental care?: No Was dental information given to patient?: Patient has dentist HPI PATROL OFFICER-Annual pe HPI Details Previous PCP: N/A Last visit:n/a Last PE:n/a Specialist: cardiology, ophthmalog, needs referral to GI, needs a referral OBGYN:n/a Past medical history: Medications: Family HX: Problem: The patient is an 80-year-old male presenting establish care, and follow up after a recent non-ST elevation myocardial infarction (NSTEMI) and to address multiple ongoing health concerns. The patient experienced a non-ST elevation myocardial infarction (NSTEMI) recently. He has been under the care of a heat set operator and is currently on medications including Lipitor, Norvasc, losartan, and metoprolol. The patient reports bilateral hearing loss, which has been ongoing for years, an d requires a referral for further evaluation. He previously used hearing aids, but they were damaged due to his occupation as a fitness center attendant/entry level truck driver. The patient is scheduled for cataract surgery in September and October, with the right eye being the worse of the two. He is also being monitored for potential glaucoma. The patient has a history of essential hypertension and is on antihypertensive t herapy. He has been living with heart issues for nearly 20 years, with a known history of arrhythmia. The patient reports tremors, primarily in the right hand, which worsen with activity and have been present for over 20 years. These tremors interfere with daily activities such as eating and cooking. The patient experiences nocturia, urinating six to seven times per night, which affects his sleep quality. He denies drinking fluids close to bedtime, suggesting a possible prostate issue. The patient has a history of gastroesophageal reflux disease (GERD) and has been advised to avoid ibuprofen due to the risk of stomach bleeding. The patient has a history of gallbladder removal, although he was unaware of the surgery until recently. The patient had an upper endoscopy retrograde cholangiopancreatography and sphincterotomy, with stone extraction, spyglass and stent placement. He has a history of cholecdocholithiasis and acute cholangitis on 05/03/2025. History of cholecystectomy The patient had a non-STEMI in the setting of acute medical/surgical illness with cholangitis. No chest pain syndrome. No wall motion abnormality seen on echocardiogram. Suspected to be obstructive CAD secondary to myocardial stress from the acute illness. The patient reports quitting smoking in April when his cardiac complications started. Reports that he was smoking since he was 16 years old. Reports drinking 2 cups of coffee daily. [facility] Medical History (Updated 06/28/25 @ 15:24 by KEYON Denton) HTN (hypertension) Surgical History S/P cholecystectomy History of repair of hiatal hernia H/O elbow surgery H/O wrist surgery Previous back surgery Social History Household Members: Significant Other Housing: Apartment Are you a primary dog daycare provider to a significant other at home: No Do you presently have visiting nurse or other home services: No Alcohol intake: former Comment: patient refusing fall precautions (bed alarm) Patient Tobacco Use Status: Current everyday Tobacco user Tobacco use type: Cigarette Cigarettes Per Day: 3 Years Smoked: 64 e-Cigarette/Vaping Use: Never Used Second Hand Smoke Exposure: Yes Advance Directives Date on File: 05/01/25 service: No Cognitive needs: No Hearing needs: No Vision needs: Yes Questionnaire PHQ-9 Over the last 2 weeks, how often have you been bothered by any of the following problems? 1. Little interest or pleasure in doing things: not at all 2. Feeling down, depressed, or hopeless: not at all 3. Trouble falling or staying asleep, or sleeping too much: not at all 4. Feeling tired or having little energy: not at all 5. Poor appetite or overeating: not at all 6. Feeling bad about yourself - or that you are a failure or have let yourself or your family down: not at all 7. Trouble concentrating on things, such as reading the newspaper or watching television: not at all 8. Moving or speaking so slowly that other people could have noticed. Or the opposite - being so fidgety or restless that you have been moving around a lot more than usual: not at all 9. Thoughts that you would be better off or of hurting yourself in some way: not at all Total score: 0 Depression Screening Interpretation: Negative Depression Screening Done: Yes 65853 - PHQ-9 Billing: Yes Source: Developed by Drs. Darrick Calderon, Josee Carlton, Julio César Sahu and colleagues, with an educational serenity from [employer]. Thrive Questionnaire Date Thrive assessed: 06/28/25 I am a: Patient What is your living situation today?: I have a place to live, but I am worried about losing it in the future Within the past 12 months, did the food you bought not last and you didn't have the money to get more?: I choose not to answer this question Within the past 12 months, did you worry whether your food would run out before you got money to buy more?: I choose not to answer this question Do you have trouble paying for medicines?: No Do you have trouble getting transportation to medical appointments?: I choose not to answer this question Do you have trouble paying your heating and electricity bill?: No Do you have trouble taking care of your child, family member or friend?: I choose not to answer this question Do you have trouble with day-to-day activities such as bathing, preparing meals, shopping, managing finances, etc.?: No Are you currently unemployed and looking for a job?: No Are you interested in more education?: No Please select the resources that you would like help with: Housing/Intermediate and Transportation Currently or been in a relationship where the following occur: No concerns reported THRIVE Score: 1 AUDIT C Alcohol Use Questionnaire (AUDIT-C) 1. How often do you have a drink containing alcohol?: Never 3. How often do you have six or more drinks on one occasion?: Never Total Score: 0 TREASURE-7 AMB Questionnaire TREASURE-7 Date TREASURE - 7 assessed: 06/28/25 Feeling nervous, anxious, or on edge: 0 = Not at all Not being able to stop or control worryin = Not at all Worrying too much about different things: 0 = Not at all Trouble relaxin = Not at all Being so restless that it is hard to sit still: 0 = Not at all Becoming easily annoyed or irritable: 0 = Not at all Feeling afraid as if something awful might happen: 0 = Not at all Total TREASURE-7 score (0-4 normal; 5-9 mild; 10-14 moderate; 15-21 severe): 0 Source: Developed by Drs. Darrick Calderon, Josee Carlton, Julio César Sahu and colleagues, with an educational serenity from [employer]. TREASURE-7 Assessment Billing TREASURE-7 Assessment Tool: TREASURE-7 Assessment 06711 Review of Systems Const Denies headache(s) Eyes Reports change in vision and Denies loss of vision ENT Denies vertigo, Denies dizziness, Denies headache(s), Reports hearing loss (Bilateral) and Denies sore throat Card Denies chest pain, Reports leg edema and Denies lightheadedness Resp Denies cough, Denies hemoptysis and Denies wheezing GI Denies abdominal pain, Denies melena, Denies constipation, Reports heartburn, Denies diarrhea and Denies vomiting Denies dysuria, Reports nocturia and Denies urinary urgency Musc Denies arthralgias, Denies joint swelling, Denies numbness and Denies tingling Neuro Denies Abnormal speech present, Denies behavioral changes, Denies vertigo, Denies dizziness, Denies headache(s), Denies loss of vision, Denies memory loss, Denies numbness, Denies tingling and Reports tremor(s) (Bilateral hands > in right) Psych Denies anxiety, Denies behavioral changes, Denies depression, Denies memory loss and Denies panic attacks Antonio/Lymph Denies easy bleeding and Denies easy bruising Aller/Immun Denies wheezing Physical exam (Primary Care) Vital Signs: Last Vital Signs Temp 98.6 F 06/28/25 08:24 Pulse 58 06/28/25 08:24 BP 110/64 06/28/25 08:24 Pulse Ox 96 06/28/25 08:24 Oxygen Delivery Method Room Air 06/28/25 08:24 BMI result Body Mass Index 28.2 Tobacco/Smoking Status: Tobacco use Status Tobacco use date assessed 06/28/25 06/28/25 08:26 Patient Tobacco Use Status Current everyday Tobacco 06/28/25 08:26 Tobacco use type Cigarette 06/28/25 08:26 e-Cigarette/Vaping Use Never Used 06/28/25 08:33 PHQ-9: PHQ-9 Score PHQ-9: Total score 0 06/28/25 14:53 Depression Screening Interpretation: Negative Thrive Assessment: Date of Thrive Assessment Date Thrive assessed 06/28/25 06/28/25 08:26 Currently or been in a relationship where the following occur: No concerns reported Const General: healthy appearing, no acute distress, alert and awake Nutritional Appearance: well nourished Orientation/consciousness: oriented to person, oriented to place and oriented to time HENMT Ears: TM's normal bilaterally General nose exam: Normal nasal mucous membranes and turbinates present Eyes Conjunctivae: conjunctivae normal Sclerae: sclerae normal Pupils: Equal, round and reactive pupils present EOM: No Nystagmus present Neck Neck: Yes no lymphadenopathy and Yes no JVD Thyroid: Thyroid normal Carotids: no bruits Resp Effort & Inspection: normal respiratory effort and not tachypneic Auscultation: no crackles, no rales, no rhonchi and no wheezes Cardio Rate: bradycardic Rhythm: regular rhythm Heart sounds: no murmurs and normal S1 and S2 GI Palpation (GI): Soft to palpation, nontender, no hepatomegaly and no splenomegaly Auscultation: normal bowel sounds Skin General skin exam: no rashes or lesions noted and dry skin Neuro General: oriented to person, oriented to place and oriented to time Cranial nerves: Yes Equal, round and reactive pupils present and No Nystagmus present Speech: No Abnormal speech present Gait exam (Neuro): Normal gait present Motor exam (neuro): Tremors during motor activity present (Tremors in bilateral hands> in right with activity) Extrem Right upper extremity: full ROM Left upper extremity: full ROM Right lower extremity: full ROM, edema and lower leg Details: pitting edema Details: 2+ Left lower extremity: full ROM, edema and lower leg Details: pitting edema Details: 2+ Psych Mental Status: mental status grossly normal Speech and movement: Normal speech and movement present Affect: normal affect Attitude: cooperative Thought process: Normal thought process present Coding Level of Care Code New Pt Level 4 (05793) Diagnoses Essential hypertension I10 Hypertension type: essential hypertension Bilateral hearing loss, unspecified hearing loss type H91.93 Hearing loss type: unspecified Laterality: bilateral Cataract of both eyes, unspecified cataract type H26.9 Cataract type: unspecified 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 Nocturia R35.1 Benign essential tremor syndrome G25.0 Additional Codes TREASURE-7 Assessment Billing - TREASURE-7 Assessment Tool: TREASURE-7 Assessment [id number] ([id number]) PHQ-9 - 77879 - PHQ-9 Billing: Yes ([id number]) Time Spent (min) 42 Assessment & Plan Assessment & Plan (1) HTN (hypertension): Code(s): I10 - Essential (primary) hypertension Category: Medical Qualifiers: Hypertension type: essential hypertension Qualified Code(s): I10 - Essential (primary) hypertension (2) Hearing loss: Code(s): H91.90 - Unspecified hearing loss, unspecified ear Category: Medical Qualifiers: Hearing loss type: unspecified Laterality: bilateral Qualified Code(s): H91.93 - Unspecified hearing loss, bilateral (3) Cataract of both eyes: Code(s): H26.9 - Unspecified cataract Category: Medical Qualifiers: Cataract type: unspecified Qualified Code(s): H26.9 - Unspecified cataract (4) Obstruction of bile duct: Code(s): K83.1 - Obstruction of bile duct Category: Medical (5) Nocturia: Code(s): R35.1 - Nocturia Category: Medical (6) Benign essential tremor syndrome: Code(s): G25.0 - Essential tremor Category: Medical Plan The patient will undergo a series of follow-up appointments and tests to address his multiple health concerns. A referral to neurology is planned to evaluate the tremors, which are suspected to be benign essential tremors. The patient will have cataract surgery scheduled for September and October, with the right eye being prioritized due to its severity. He will also be monitored for potential glaucoma. A referral to gastroenterology will be made to follow up on the stent placement and any related gastrointestinal issues. Additionally, a PSA test will be conducted to evaluate the cause of nocturia. An urology referral was placed as well. The patient is advised to avoid ibuprofen due to the risk of gastrointestinal bleeding and to continue his current cardiovascular medications. He will return for a complete physical examination and lab review, including fasting labs to assess cholesterol levels. The patient had a hearing aids prior that were worn out and stopped working. He is looking to be re-evaluated and prescribed new hearing aids. Patient was informed and verbally consented to the use of an ambient scribe for clinic note documentation during this visit. Orders: Orders Complete Blood Count Auto Diff Today G25.0 - Essential tremor, H26.9 - Unspecified cataract, I10 - Essential (primary) hypertension, R35.1 - Nocturia, Z00.00 - Encounter for general adult medical examination without abnormal findings Comprehensive [place]. Panel Fast Today G25.0 - Essential tremor, H26.9 - Unspec ified cataract, I10 - Essential (primary) hypertension, R35.1 - Nocturia, Z00.00 - Encounter for general adult medical examination without abnormal findings TSH reflex Free T4 Today G25.0 - Essential tremor, H26.9 - Unspecified cataract, I10 - Essential (primary) hypertension, R35.1 - Nocturia, Z00.00 - Encounter for general adult medical examination without abnormal findings Vitamin D 25-OH Total Today G25.0 - Essential tremor, H26.9 - Unspecified cataract, I10 - Essential (primary) hypertension, R35.1 - Nocturia, Z00.00 - Encounter for general adult medical examination without abnormal findings PSA,Total (Free>4and<10) Today G25.0 - Essential tremor, H26.9 - Unspecified cataract, I10 - Essential (primary) hypertension, R35.1 - Nocturia, Z00.00 - Encounter for general adult medical examination without abnormal findings Lipid Panel Today G25.0 - Essential tremor, H26.9 - Unspecified cataract, I10 - Essential (primary) hypertension, R35.1 - Nocturia, Z00.00 - Encounter for general adult medical examination without abnormal findings UA CC w/rflx Micro + Cult Today G25.0 - Essential tremor, H26.9 - Unspecified cataract, I10 - Essential (primary) hypertension, R35.1 - Nocturia, Z00.00 - Encounter for general adult medical examination without abnormal findings B Type Natriuretic Peptide Today G25.0 - Essential tremor, H26.9 - Unspecified cataract, I10 - Essential (primary) hypertension, R35.1 - Nocturia, Z00.00 - Encounter for general adult medical examination without abnormal findings Referrals Urology Referral R35.1 - Nocturia Gastroenterology Referral K83.1 - Obstruction of bile duct Ear/Nose/Throat Referral H91.90 - Unspecified hearing loss, unspecified ear
== END 2025-06-28 09:17 | disposition home or self-care (01) ==
LOC: HO.HMCH 08:14
DX: I10 Essential (primary) hypertension (principal); H91.93 Unspecified hearing loss, bilateral; H26.9 Unspecified cataract; K83.1 Obstruction of bile duct; R35.1 Nocturia; G25.0 Essential tremor

== ENCOUNTER → 2025-06-28 08:13 | Outpatient (BNVA) | payer MEDICAID, SELFPAY | DX: I10 Essential (primary) hypertension (principal); I25.2 Old myocardial infarction; R35.1 Nocturia; K21.9 Gastro-esophageal reflux disease without esophagitis; H91.93 Unspecified hearing loss, bilateral; H26.9 Unspecified cataract; K83.1 Obstruction of bile duct; G25.0 Essential tremor; Z79.899 Other long term (current) drug therapy; Z87.891 Personal history of nicotine dependence | CPT/HCPCS: 96127; 99202 ==

== ENCOUNTER 2025-08-04 11:12 | Day surgery (SDC) | payer MEDICARE, MEDICAID, SELFPAY ==
[2025-08-02 08:09] VITALS: BMI 28.1
--- NOTE | 2025-08-02 14:54 | P.CONAN_ITS ---
Documented by User: Eliza Madera NP 08/02/25 15:01 HPI - Anesthesia Eval Consult details Narrative: 80yo M for ERCP s/p same 05/2025 with GA-ETT 8 during [facility] [place] inpatient Hospital course: He presented with fall, chills and found to have cholangitis and NSTEMI. He Completed 48 hours of IV heparin for NSTEMI, no wall motion abnormality on echo. We will need ischemic workup outpatient. He had been treated with Flagyl and Levaquin for cholangitis, blood culture was positive for E.coli and he will complate 10 days of levaquin. He had ERCP with sphycterectomy and stone extraction on 05/03 and is doing well post op, diet advanced to regular diet. He already had gallbladder removal decades ago. Cardiac optimized. Eval'd outpatient s/p discharge Recent hospitalization for noncardiac reasons with finding of elevated troponins to level of NSTEMI, most likely secondary in nature in the setting of bacteremia and cholangitis. No cardiac history. Cardiac risks of age, hypertension. Echocardiogram 04/30/2025 showed EF 50-55%, no regional wall motion abnormality, [id number] aortic regurgitation, ascending aorta 4 cm. Nuclear stress test done 06/01/2025 shows severe apical and mild inferior ischemia. He is asymptomatic. Discussed treatment options including cardiac catheterization and med management. Discussed that he likely has some degree of coronary artery disease and may have some impaired flow 2 areas of the heart muscle. He prefers med management at this time. Signs and symptoms of angina reviewed with him. Continue aspirin indefinitely. Will check LFTs and if normalized will plan to start on statin therapy. Continue amlodipine and metoprolol as dual antianginals. Continue losartan for good blood pressure control. Emergency care if needed for symptoms. Cardiology follow-up 3 months, sooner if needed. PMFSH Active Problems Active Problems: All Active Problems Obstruction of bile duct (Acute) Hearing loss (Acute) Cataract of both eyes (Acute) Benign essential tremor syndrome (Acute) Nocturia (Acute) Annual physical exam (Acute) HTN (hypertension) (Acute) Abnormal nuclear stress test (Acute) Hospital discharge follow-up (Acute) Urinary tract infection (Acute) Past Medical History Medical History NSTEMI (non-ST elevated myocardial infarction) HTN (hypertension) Family History Family history of problems with anesthesia: No Surgical History Surgical History S/P cholecystectomy History of repair of hiatal hernia H/O elbow surgery H/O wrist surgery Previous back surgery History of Problems with Anesthesia: No Social History Social History Household Members: Significant Other Housing: Apartment Are you a primary intensive care anaesthetist to a significant other at home: No Do you presently have visiting nurse or other home services: No Alcohol intake: former Comment: patient refusing fall precautions (bed alarm) Patient Tobacco Use Status: Former Tobacco user Tobacco use type: Cigarette Cigarettes Per Day: 3 Years Smoked: 64 e-Cigarette/Vaping Use: Never Used Second Hand Smoke Exposure: Yes Have you been hit, kicked, punched, or otherwise hurt by someone within the past year? If so, by whom?: No Are you DNR?: No Advance Directives: No Advance Directives Information Provided: Yes Advance Directives Date on File: 05/01/25 service: No Cognitive needs: No Hearing needs: No Vision needs: Yes Meds Allergies Allergy/AdvReac Type Severity Reaction Status Date / Time Penicillins (PENICILLINS) Allergy Severe ANAPHYLAXIS Verified 06/28/25 08:40 penicillin V Allergy Unknown anaphylaxis Verified 06/28/25 08:40 Home Medications ?Medication ?Instructions ?Recorded ?Confirmed ?Last Taken ?Type acetaminophen 325 mg tablet 325 mg PO Q6H PRN Pain 08/04/25 08/03/25 History ibuprofen 200 mg tablet (Advil) 200 mg PO Q8H PRN Pain 04/30/25 08/04/25 08/02/25 History multivitamin 1 tab PO DAILY 04/30/25 10/0 11/2808/03/25 History Exam Height,Weight and Vital Signs: Height 6 ft 3 in Weight 102.058 kg Narrative Narrative: EKG 04/2025 Vent. Rate : 85 BPM Atrial Rate : 85 BPM P-R Int : 228 ms QRS Dur : 112 ms QT Int : 372 ms P-R-T Axes : 8 -32 35 degrees QTcB Int : 442 ms Sinus rhythm with 1st degree A-V block Possible Left atrial enlargement Left axis deviation Minimal voltage criteria for LVH, may be normal variant ( [place] product ) Abnormal ECG When compared with ECG of 29-Apr-2025 23:41, No significant change was found ECHO 04/2025 Conclusions: - The left ventricular systolic function is low normal. The visually estimated ejection fraction is between 50-55%. - There is mild to moderate aortic valve regurgitation. - There is mild dilatation of the sinuses of Valsalva measuring 4.29 cm and mild dilatation of the ascending aorta measuring 4.00 cm. NM cardiolite stress test 05/2025 Impression: 1. Myocardial perfusion imaging study shows apical and inferior ischemia 2. Gated LVEF is 44% with stress and 55% with rest 3. Transient ischemic dilatation not present but LV cavity is dilated Nondiagnostic changes on EKG. Assessment and Plan Assessment Anesthesia Assessment: Chart Reviewed Final Anesthetic Review Family History of Problems with Anesthesia: No History of Problems with Anesthesia: No Documented by User: Ami Araujo NP 08/03/25 10:15 HPI - Anesthesia Eval Consult details Narrative: 80yo M for ERCP s/p same 05/2025 with GA-ETT 8 during [facility] [place] inpatient Hospital course: He presented with fall, chills and found to have cholangitis and NSTEMI. He Completed 48 hours of IV heparin for NSTEMI, no wall motion abnormality on echo. We will need ischemic workup outpatient. He had been treated with Flagyl and Levaquin for cholangitis, blood culture was positive for E.coli and he will complate 10 days of levaquin. He had ERCP with sphycterectomy and stone extraction on 05/03 and is doing well post op, diet advanced to regular diet. He already had gallbladder removal decades ago. Cardiac optimized. Eval'd outpatient s/p discharge Recent hospitalization for noncardiac reasons with finding of elevated troponins to level of NSTEMI, most likely secondary in nature in the setting of bacteremia and cholangitis. No cardiac history. Cardiac risks of age, hypertension. Echocardiogram 04/30/2025 showed EF 50-55%, no regional wall motion abnormality, [id number] aortic regurgitation, ascending aorta 4 cm. Nuclear stress test done 06/01/2025 shows severe apical and mild inferior ischemia. He is asymptomatic. Discussed treatment options including cardiac catheterization and med management. Discussed that he likely has some degree of coronary artery disease and may have some impaired flow 2 areas of the heart muscle. He prefers med management at this time. Signs and symptoms of angina reviewed with him. Continue aspirin indefinitely. Will check LFTs and if normalized will plan to start on statin therapy. Continue amlodipine and metoprolol as dual antianginals. Continue losartan for good blood pressure control. Emergency care if needed for symptoms. Cardiology follow-up 3 months, sooner if needed. [facility] Past Medical History Medical History NSTEMI (non-ST elevated myocardial infarction) HTN (hypertension) Surgical History Surgical History S/P cholecystectomy History of repair of hiatal hernia H/O elbow surgery H/O wrist surgery Previous back surgery Social History Social History Household Members: Significant Other Housing: Apartment Are you a primary intensive care anaesthetist to a significant other at home: No Do you presently have visiting nurse or other home services: No Alcohol intake: former Comment: patient refusing fall precautions (bed alarm) Patient Tobacco Use Status: Former Tobacco user Tobacco use type: Cigarette Cigarettes Per Day: 3 Years Smoked: 64 e-Cigarette/Vaping Use: Never Used Second Hand Smoke Exposure: Yes Have you been hit, kicked, punched, or otherwise hurt by someone within the past year? If so, by whom?: No Are you DNR?: No Advance Directives: No Advance Directives Information Provided: Yes Advance Directives Date on File: 05/01/25 service: No Cognitive needs: No Hearing needs: No Vision needs: Yes Meds Allergies Allergy/AdvReac Type Severity Reaction Status Date / Time Penicillins (PENICILLINS) Allergy Severe ANAPHYLAXIS Verified 06/28/25 08:40 penicillin V Allergy Unknown anaphylaxis Verified 06/28/25 08:40 Home Medications ?Medication ?Instructions ?Recorded ?Confirmed ?Last Taken ?Type acetaminophen 325 mg tablet 325 mg PO Q6H PRN Pain 08/04/25 08/03/25 History ibuprofen 200 mg tablet (Advil) 200 mg PO Q8H PRN Pain 04/30/25 08/04/25 08/02/25 History multivitamin 1 tab PO DAILY 04/30/25 10/0 11/2808/03/25 History Exam Narrative Narrative: EKG 04/2025 Vent. Rate : 85 BPM Atrial Rate : 85 BPM P-R Int : 228 ms QRS Dur : 112 ms QT Int : 372 ms P-R-T Axes : 8 -32 35 degrees QTcB Int : 442 ms Sinus rhythm with 1st degree A-V block Possible Left atrial enlargement Left axis deviation Minimal voltage criteria for LVH, may be normal variant ( [place] product ) Abnormal ECG When compared with ECG of 29-Apr-2025 23:41, No significant change was found ECHO 04/2025 Conclusions: - The left ventricular systolic function is low normal. The visually estimated ejection fraction is between 50-55%. - There is mild to moderate aortic valve regurgitation. - There is mild dilatation of the sinuses of Valsalva measuring 4.29 cm and mild dilatation of the ascending aorta measuring 4.00 cm. NM cardiolite stress test 05/2025 Impression: 1. Myocardial perfusion imaging study shows apical and inferior ischemia 2. Gated LVEF is 44% with stress and 55% with rest 3. Transient ischemic dilatation not present but LV cavity is dilated Nondiagnostic changes on EKG. Documented by User: Morgan Mitchell MD 08/04/25 13:07 [facility] Past Medical History Medical History NSTEMI (non-ST elevated myocardial infarction) HTN (hypertension) Surgical History Surgical History S/P cholecystectomy History of repair of hiatal hernia H/O elbow surgery H/O wrist surgery Previous back surgery Social History Social History Household Members: Significant Other Housing: Apartment Are you a primary intensive care anaesthetist to a significant other at home: No Do you presently have visiting nurse or other home services: No Alcohol intake: former Comment: patient refusing fall precautions (bed alarm) Patient Tobacco Use Status: Former Tobacco user Tobacco use type: Cigarette Cigarettes Per Day: 3 Years Smoked: 64 e-Cigarette/Vaping Use: Never Used Second Hand Smoke Exposure: Yes Have you been hit, kicked, punched, or otherwise hurt by someone within the past year? If so, by whom?: No Are you DNR?: No Advance Directives: No Advance Directives Information Provided: Yes Advance Directives Date on File: 05/01/25 service: No Cognitive needs: No Hearing needs: No Vision needs: Yes Meds Allergies Allergy/AdvReac Type Severity Reaction Status Date / Time Penicillins (PENICILLINS) Allergy Severe ANAPHYLAXIS Verified 06/28/25 08:40 penicillin V Allergy Unknown anaphylaxis Verified 06/28/25 08:40 Home Medications ?Medication ?Instructions ?Recorded ?Confirmed ?Last Taken ?Type acetaminophen 325 mg tablet 325 mg PO Q6H PRN Pain 08/04/25 08/03/25 History ibuprofen 200 mg tablet (Advil) 200 mg PO Q8H PRN Pain 04/30/25 08/04/25 08/02/25 History multivitamin 1 tab PO DAILY 04/30/2511/2808/03/25 History Exam Exam Date and Time: Airway Mallampati Class: I TM Dist: >3cm Neck ROM: Full Denture: Upper and Lower Loose/Missing/Broken Teeth: Yes, Upper and Lower Heart: RRR Lungs: CTAB vesicular Assessment and Plan Assessment Anesthesia Assessment: Anesthesia Plan Discussed Final Anesthetic Review NPO: Yes ASA Class: III Final Preanesthetic Review: No Changes in Pt Med Stat, Meds/Allgs Chart Reviewed, Consent Obtained/Reviewed and Anes Risks/Benef Reviewed Patient Risk: Intermediate Procedure Risk: Low Anesthetic Plan Anesthetic Plan: GA Disposition: Standard PACU
--- NOTE | ~2025-08-04 | FL_ITS ---
EXAMINATION: FL GUIDANCE ONLY HISTORY: ERCP COMPARISON: Correlation is made with a CT of the abdomen with contrast dated 04/30/2025. TECHNIQUE: Fluoroscopy time: 1.6 minutes. Cumulative Dose: 38.7 mGy. DAP: 10.5 Gycm2 Images: 4. FINDINGS: Fluoroscopic spot films from an ERCP demonstrate placement of a stent. FL/FL guidance in OR IMPRESSION: Fluoroscopy during procedure. Please see procedure report for additional information. Electronically signed by: Darrick Yoder MD 08/04/2025 02:53 PM EDT
[2025-08-04 11:39] VITALS: BP 183/63; PULSE 57; RESP 19; TEMP 36.9; O2SAT 97; BMI 28.6
[2025-08-04] MEDS: Lactated Ringers 1,000 ML 100 ML IVCONT (12:05)
--- NOTE | 2025-08-04 13:23 | MHC.SHP ---
Pre-Procedural Eval Section A - 24 Hr Update-Section A only Date of Service: 08/04/25 Section B - Complete if H&P > 30 days Chief Complaint: ercp stent removal Relevant Family History (Specify if Yes): No Relevant Social History: Tobacco Use Present Medications: see Short Stay Collaborative assessment Medical History: Significant History (HTN (hypertension)) History of Previous Operations: Relevant previous surgery/procedure and date(s) (S/P cholecystectomy History of repair of hiatal hernia H/O elbow surgery H/O wrist surgery Previous back surgery) Allergies: Allergies Allergy/AdvReac Type Severity Reaction Status Date / Time Penicillins (PENICILLINS) Allergy Severe ANAPHYLAXIS Verified 06/28/25 08:40 penicillin V Allergy Unknown anaphylaxis Verified 06/28/25 08:40 Review of Systems Sugical H&P ROS: Negative: Constitution, Cardiovascular, Respiratory, Neurological, Psychiatric, Hem-Onc, Allergic/Immunologic, Gastrointestinal, Genitourinary, Musculoskeletal, Integumentary, Endocrine and Eyes/Ears/Nose/Throat Exam Surgical H&P Exam: Normal: HEENT, Normal: Heart, Normal: Lungs, Normal: Extremities, Normal: Abdomen, Normal: Skin and Normal: Neurological (tremor) Plan Diagnosis/Plan: Unchanged I have reviewed the history and physical and performed a pertinent physical examination on my patient. No changes have occurred unless specified. Time Spent With Patient Time: Total time managing care of this patient today ____ minutes.
--- NOTE | 2025-08-04 14:35 | W.PM.OPN ---
Operative Note Operative Note Date of Service: 08/04/25 Narrative: Description:?Endoscopic retrograde cholangiopancreatography (ERCP) PROCEDURE:?Endoscopic retrograde cholangiopancreatography with stent exchange and balloon sweep with stone and sludge removal INDICATION FOR THE PROCEDURE:?Patient with a history of choledocholithiasis with stent placement for sludge and debris MEDICATIONS:?General anesthesia. The risks of the procedure were made aware to the patient and consisted of medication reaction, bleeding, perforation, aspiration, and post ERCP pancreatitis. DESCRIPTION OF PROCEDURE:?After informed consent and appropriate sedation, the duodenoscope was inserted into the oropharynx, down the esophagus, and into the stomach. The scope was then advanced through the pylorus to the ampulla. The previously placed stent was noted and removed using a snare. The duct was then accessed with a balloon and swept with copious amounts of sludge and stone debris removed. The duct was irrigated with saline and more debris popped out. An occlusion cholangiogram was performed but no obvious filling defects noted, but after a further sweep more sludge came out. Given the large volume of sludge I elected to place another stent 10 Fr by 7 cm which was draining well. Intraop cholangiogram reivew and interpretation by performing physician: Dilated CBD without filling defect, slightly dilated FINDINGS: 1. choledocholithiasis and sludge RECOMMENDATIONS: 1. clears today and regular diet tomorrow, 2. return for stent exchange or removal only in 3-4 months, or earlier if any symptoms of stent blockage like jaundice, fever, abdominal pain
[2025-08-04 14:50] VITALS: BP 148/65; PULSE 80; RESP 16; TEMP 36.1; O2SAT 97
[2025-08-04 14:56] VITALS: BP 142/71; PULSE 80; RESP 18; O2SAT 97
[2025-08-04 15:11] VITALS: BP 140/55; PULSE 73; RESP 18; TEMP 36.2; O2SAT 97
== END 2025-08-04 16:08 | disposition home or self-care (01) ==
PROVIDERS: Visit Provider Internal Medicine Gastroenterology
PROC: (CPT 43260; principal; 2025-08-04 14:00)
DX: Z46.59 Encounter for fitting and adjustment of other gastrointestinal appliance and device (principal); K80.50 Calculus of bile duct without cholangitis or cholecystitis without obstruction; K83.09 Other cholangitis; I10 Essential (primary) hypertension; Z88.0 Allergy status to penicillin
CPT/HCPCS: 43276; 43264; C2625; J0330; J1100; J1596; J1610; J1920; J2250; J2405; J3010; Q9967

== ENCOUNTER → 2025-08-04 11:12 | Outpatient (BNV) | payer MEDICARE, MEDICAID, SELFPAY | PROVIDERS: Visit Provider Internal Medicine Gastroenterology | DX: K80.50 Calculus of bile duct without cholangitis or cholecystitis without obstruction (principal) | CPT/HCPCS: 43264; 43276 ==

== ENCOUNTER 2025-08-12 09:23 | Outpatient (REF) | payer MEDICARE, MEDICAID, SELFPAY ==
[2025-08-12 13:27] LABS: MANUAL DIFF FLAG NO
[2025-08-12 14:09] LABS: Hematocrit 38.4 % (42.0-52.0); Hemoglobin 12.6 g/dl (14.0-18.0); Imm Gran Abs Auto 0.03 X10*3/uL (0.00-0.03); Imm Gran Pct Auto 0.4 % (0.0-0.4); Lymphocytes Absolute Auto 1.6 X10*3/uL (1.2-4.9); Mean Corpuscular HGB Conc 32.8 g/dl (31.0-36.0); Mean Corpuscular Hemoglobin 32.1 pg (27.0-33.0); Mean Corpuscular Volume 97.7 fL (80.0-98.0); NRBC Abs Auto 0.000 X10*3/uL (0.0-0.012); NRBC Pct Auto 0.0 /100WBC (0.0-0.2); Platelet Count 226 X10*3/uL (160-400); Red Blood Count 3.93 X10*6/uL (4.60-5.80); White Blood Count 7.1 X10*3/uL (4.8-10.8)
[2025-08-12 14:13] LABS: Alanine Aminotransferase 12 U/L (0-40); Albumin Level 4.0 g/dL (3.5-5.0); Alkaline Phosphatase 55 U/L (39-117); Anion Gap 9 (12-20); Aspartate Amino Transferase 27 U/L (5-37); Blood Urea Nitrogen 21 mg/dL (9-16); Calcium 9.7 mg/dL (8.4-10.2); Carbon Dioxide 31 mmol/L (22-29); Chloride 106 mmol/L (96-108); Cholesterol 115 mg/dL (<200); Estimated Glomerular Filt Rate > 60; HDL Cholesterol 35 mg/dL (>40); Potassium 5.4 mmol/L (3.3-5.1); Sodium 141 mmol/L (135-145); Total Protein 6.9 g/dL (6.5-8.0); Triglycerides 61 mg/dL (<150)
[2025-08-12 14:19] LABS: PSA,Total (Free>4and<10) 0.99 ng/mL (0.00-4.00)
[2025-08-12 16:38] LABS: Appearance Urine Clear; Glucose Urine UA Negative (Negative); PH 7.0 (5.0-9.0); Specific Gravity - Urine 1.020 (1.005-1.025)
== END 2025-08-12 09:24 | disposition home or self-care (01) ==
LOC: HO.HMGCLDS 09:23
PROVIDERS: Nurse Practitioner Family
DX: Z00.00 Encounter for general adult medical examination without abnormal findings (principal); R94.39 Abnormal result of other cardiovascular function study; I10 Essential (primary) hypertension; R35.1 Nocturia; G25.0 Essential tremor; H26.9 Unspecified cataract; Z12.5 Encounter for screening for malignant neoplasm of prostate; Z13.21 Encounter for screening for nutritional disorder
CPT/HCPCS: 36415; 80053; 80061; 81003; 82306; 84153; 84443; 85025

== ENCOUNTER 2025-08-18 09:21 | Outpatient (AMB) | payer MEDICAID, SELFPAY ==
[2025-08-18 09:27] VITALS: BP 146/52; PULSE 52; RESP 18; TEMP 36.2; O2SAT 96; BMI 29.7
--- NOTE | 2025-08-18 09:27 | A.OFFPC_ITS ---
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 Accompanied by: Self / Same As Patient Allergies Penicillins (PENICILLINS) Allergy (Severe, Verified 08/20/25 00:02) ANAPHYLAXIS penicillin V Allergy (Unknown, Verified 08/20/25 00:02) anaphylaxis Medication List - Last Reconciled 08/20/25 by KEYON Denton acetaminophen 325 mg PO Q6H PRN amlodipine (Norvasc) 10 mg PO DAILY aspirin 81 mg PO DAILY atorvastatin 20 mg PO BEDTIME ibuprofen (Advil) 200 mg PO Q8H PRN losartan 50 mg PO DAILY metoprolol tartrate 50 mg PO BID multivitamin 1 tab PO DAILY Tobacco use date assessed: 08/18/25 Fall risk assessment: 1 Fall in past year Last assessed Fall Risk: 08/18/25 Dental Screening Dental Screen Date: 08/18/25 Did you have a dental visit in the last 12 months?: Yes Did you have a dental problem in the last 6 months where you did not have access to dental care?: No Was dental information given to patient?: Patient has dentist HPI htn/cad/tremors/nocturia HPI Details The patient is a 80-year-old male with significant past medical history of HTN, CAD, tremors, nocturia He is presenting with elevated potassium levels and ongoing anemia The patient had hyperkalemia, which was identified during routine lab work. The potassium levels have been slightly elevated, and a recheck has been planned to confirm the levels before making any treatment decisions. The patient also has a history of microcytic anemia, which has been stable over time. The anemia is considered chronic, and further evaluation of B12 and folate levels has been suggested to rule out deficiencies. Additionally, the patient experiences frequent urination, which may be related to benign prostatic hyperplasia. The prostate-specific antigen levels are normal, and the condition is likely age-related. He reports that he will be needing a preoperative clearance for cataract surgery in the near futre. [facility] Medical History NSTEMI (non-ST elevated myocardial infarction) HTN (hypertension) Surgical History S/P cholecystectomy History of repair of hiatal hernia H/O elbow surgery H/O wrist surgery Previous back surgery Social History Household Members: Significant Other Housing: Apartment Are you a primary careers adviser to a significant other at home: No Do you presently have visiting nurse or other home services: No Alcohol intake: former Comment: patient refusing fall precautions (bed alarm) Patient Tobacco Use Status: Former Tobacco user Tobacco use type: Cigarette Cigarettes Per Day: 3 Years Smoked: 64 e-Cigarette/Vaping Use: Never Used Second Hand Smoke Exposure: Yes Advance Directives Date on File: 05/01/25 service: No Cognitive needs: No Hearing needs: No Vision needs: Yes Questionnaire Thrive Questionnaire Date Thrive assessed: 06/28/25 I am a: Patient What is your living situation today?: I have a place to live, but I am worried about losing it in the future Within the past 12 months, did the food you bought not last and you didn't have the money to get more?: I choose not to answer this question Within the past 12 months, did you worry whether your food would run out before you got money to buy more?: I choose not to answer this question Do you have trouble paying for medicines?: No Do you have trouble getting transportation to medical appointments?: I choose not to answer this question Do you have trouble paying your heating and electricity bill?: No Do you have trouble taking care of your child, family member or friend?: I choose not to answer this question Do you have trouble with day-to-day activities such as bathing, preparing meals, shopping, managing finances, etc.?: No Are you currently unemployed and looking for a job?: No Are you interested in more education?: No Currently or been in a relationship where the following occur: No concerns reported THRIVE Score: 1 TREAUSRE-7 AMB Questionnaire TREASURE-7 Date TREASURE - 7 assessed: 06/28/25 Source: Developed by Drs. Darrick Calderon, Josee Carlton, Julio César Sahu and colleagues, with an educational serenity from [employer]. Review of Systems Const Denies body aches, Denies chills, Denies fever(s), Denies headache(s) and Denies poor appetite Eyes Reports no additional complaints ENT Denies dysphagia, Denies dizziness, Denies headache(s), Reports hearing loss (Bilateral) and Denies odynophagia Card Denies chest pain, Denies syncope, Denies edema, Denies irregular heart rhythm, Reports leg edema, Denies lightheadedness and Denies dyspnea Resp Denies cough and Denies dyspnea GI Denies abdominal pain, Denies constipation, Denies dysphagia, Denies diarrhea, Denies nausea, Denies odynophagia and Denies vomiting Reports no additional complaints Musc Reports no additional complaints and Denies abnormal gait Skin/Breast Reports system reviewed and no additional complaints, except as documented Neuro Denies abnormal gait, Denies dizziness, Denies syncope, Denies headache(s) and Reports tremor(s) (Upper extremities right greater than left) Psych Reports no additional complaints Physical exam (Primary Care) Vital Signs: Last Vital Signs Temp 97.1 F 08/18/25 09:27 Pulse 52 08/18/25 09:27 Resp 18 08/18/25 09:27 BP 146/52 H 08/18/25 09:27 Pulse Ox 96 08/18/25 09:27 Oxygen Delivery Method Room Air 08/18/25 09:27 BMI result Body Mass Index 29.7 Tobacco/Smoking Status: Tobacco use Status Tobacco use date assessed 08/18/25 08/18/25 09:36 Patient Tobacco Use Status Former Tobacco user 08/18/25 09:36 Tobacco use type Cigarette 08/18/25 09:36 e-Cigarette/Vaping Use Never Used 08/18/25 09:36 Thrive Assessment: Date of Thrive Assessment Date Thrive assessed 06/28/25 08/18/25 09:36 Currently or been in a relationship where the following occur: No concerns reported Const General: cooperative, healthy appearing, comfortable and no acute distress Orientation/consciousness: patient oriented x3 HENMT Head: Yes normocephalic Ears: hearing grossly normal bilaterally General nose exam: Normal external nose present Eyes General: appearance normal, both eyes and all related structures Conjunctivae: conjunctivae normal Pupils: Equal, round and reactive pupils present Neck Neck: Yes full ROM and Yes no lymphadenopathy Resp Effort & Inspection: normal respiratory effort Auscultation: clear to auscultation bilaterally, no crackles, no rales, no rhonchi and no wheezes Cardio Rate: regular rate Rhythm: regular rhythm Heart sounds: S1 normal heart sound present and S2 normal heart sound present Peripheral pulses: Peripheral pulses 2+ throughout GI Palpation (GI): Soft to palpation and nontender Auscultation: normal bowel sounds General: Yes no CVA tenderness Back/Spine/Pelvis Back: no CVA tenderness Skin General skin exam: no rashes or lesions noted Neuro General: patient oriented x3 Cranial nerves: Yes Equal, round and reactive pupils present and Yes Nystagmus not present Gait exam (Neuro): Normal gait present Motor exam (neuro): 5/5 motor strength present throughout Extrem General: Yes normal to inspection, Yes full ROM and No edema Right upper extremity: full ROM (Tremors with activity) Left upper extremity: full ROM (Tremors with activity) Right lower extremity: full ROM and edema Details: 2+ Left lower extremity: edema Details: 2+ Psych Affect: normal affect Attitude: cooperative Insight: Good insight present (Psych) Judgement: Good judgement present (Psych) Results Reviewed Results Reviewed: Laboratory Tests 08/12/25 08/12/25 10:05 10:06 WBC 7.1 RBC 3.93 L Hgb 12.6 L Hct 38.4 L MCV 97.7 MCH 32.1 MCHC 32.8 RDW 13.1 Plt Count 226 D Sodium 141 Potassium 5.4 H D Chloride 106 Carbon Dioxide 31 H Anion Gap 9 L BUN 21 H Creatinine 0.89 Estimated GFR > 60 Fasting Glucose 95 Calcium 9.7 D Total Bilirubin 0.6 AST 27 ALT 12 Alkaline Phosphatase 55 Total Protein 6.9 Albumin 4.0 Triglycerides 61 Cholesterol 115 LDL Cholesterol, Calc 68 HDL Cholesterol 35 L Total PSA 0.99 25-OH Vitamin D Total 35.3 TSH 2.02 Urine Color Yellow Urine Appearance Clear Urine pH 7.0 Ur Specific [place] 1.020 Urine Protein Negative Urine Glucose (UA) Negative Urine Ketones Negative Urine Blood Negative Urine Nitrite Negative Ur Leukocyte Esterase Negative Coding Level of Care Code Est Pt Level 4 (80507) Diagnoses Essential hypertension I10 Hypertension type: essential hypertension Bilateral hearing loss, unspecified hearing loss type H91.93 Hearing loss type: unspecified Laterality: bilateral Cataract of both eyes, unspecified cataract type H26.9 Cataract type: unspecified 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 Nocturia R35.1 Benign essential tremor syndrome G25.0 Serum potassium elevated E87.5 Anemia, unspecified type D64.9 Anemia type: unspecified type Hyperlipidemia, unspecified hyperlipidemia type E78.5 Hyperlipidemia type: unspecified Time Spent (min) 39 Assessment & Plan Assessment & Plan (1) HTN (hypertension): Code(s): I10 - Essential (primary) hypertension Category: Medical Qualifiers: Hypertension type: essential hypertension Qualified Code(s): I10 - Essential (primary) hypertension Plan: Blood pressure 146/52 systolic goal less than 150 mm hg due to wide pulse pressure and age Reinforced low-salt diet and adequate hydration Continue amlodipine 10 mg, losartan 50 mg daily, metoprolol tartrate 50 mg b.i.d. (2) Hearing loss: Code(s): H91.90 - Unspecified hearing loss, unspecified ear Category: Medical Qualifiers: Hearing loss type: unspecified Laterality: bilateral Qualified Code(s): H91.93 - Unspecified hearing loss, bilateral Plan: The patient had a hearing aids prior that were worn out and stopped working. He is looking to be re-evaluated and prescribed new hearing aids. ENT referral was placed (3) Cataract of both eyes: Code(s): H26.9 - Unspecified cataract Category: Medical Qualifiers: Cataract type: unspecified Qualified Code(s): H26.9 - Unspecified cataract Plan: Patient plans on happen cataracts surgery in the near future (4) Obstruction of bile duct: Code(s): K83.1 - Obstruction of bile duct Category: Medical Plan: GI referral was placed for follow up on stent placement. (5) Nocturia: Code(s): R35.1 - Nocturia Category: Medical Plan: The patient experiences frequent urination, likely related to benign prostatic hyperplasia, with normal prostate-specific antigen levels. The condition is monitored, and no immediate intervention is required unless symptoms worsen. Encouraged the patient to stop drinking fluids closed to bedtime. Urology referral was placed (6) Benign essential tremor syndrome: Code(s): G25.0 - Essential tremor Category: Medical Plan: The patient will undergo a series of follow-up appointments and tests to address his multiple health concerns. A referral to neurology is planned to evaluate the tremors, which are suspected to be benign essential tremors (7) Serum potassium elevated: Code(s): E87.5 - Hyperkalemia Category: Medical Plan: The patient's potassium levels are slightly elevated, and a recheck is planned to confirm the levels before making any treatment decisions. The patient is advised to maintain hydration and avoid high-potassium foods until the recheck is completed. (8) Anemia: Code(s): D64.9 - Anemia, unspecified Category: Medical Qualifiers: Anemia type: unspecified type Qualified Code(s): D64.9 - Anemia, unspecified Plan: The patient has chronic microcytic anemia, and further evaluation of B12 and folate levels is suggested to rule out deficiencies. The anemia is stable, and no immediate intervention is required until further lab results are obtained. (9) HLD (hyperlipidemia): Code(s): E78.5 - Hyperlipidemia, unspecified Category: Medical Qualifiers: Hyperlipidemia type: unspecified Qualified Code(s): E78.5 - Hyperlipidemia, unspecified Plan: Triglycerides 61, total cholesterol 115, LDL 68, HDL 35 Reinforced low-cholesterol diet and activity as tolerated Continue atorvastatin 20 mg at bedtime We will repeat lipid panel in 3 months Orders: Orders Vitamin B12 and Folate 08/18/25 E87.5 - Hyperkalemia Hemoglobin A1c 08/18/25 Z01.818 - Encounter for other preprocedural examination Complete Blood Count Auto Diff 3 Months E78.5 - Hyperlipidemia, unspecified, G25.0 - Essential tremor, H26.9 - Unspecified cataract, H91.93 - Unspecified hearing loss, bilateral, I10 - Essential (primary) hypertension, I21.4 - Non-ST elevation (NSTEMI) myocardial infarction, R94.39 - Abnormal result of other cardiovascular function study Comprehensive [place]. Panel Fast 3 Months E78.5 - Hyperlipidemia, unspecified, G25.0 - Essential tremor, H26.9 - Unspecified cataract, H91.93 - Unspecified hearing loss, bilateral, I10 - Essential (primary) hypertension, I21.4 - Non-ST elevation (NSTEMI) myocardial infarction, R94.39 - Abnormal result of other cardiovascular function study TSH reflex Free T4 3 Months E78.5 - Hyperlipidemia, unspecified, G25.0 - Essential tremor, H26.9 - Unspecified cataract, H91.93 - Unspecified hearing loss, bilateral, I10 - Essential (primary) hypertension, I21.4 - Non-ST elevation (NSTEMI) myocardial infarction, R94.39 - Abnormal result of other cardiovascular function study Basic Metabolic Panel 08/18/25 E87.5 - Hyperkalemia ECG 12 lead EKG 08/18/25 Z01.818 - Encounter for other preprocedural examination Lipid Panel 3 Months E78.5 - Hyperlipidemia, unspecified, G25.0 - Essential tremor, H26.9 - Unspecified cataract, H91.93 - Unspecified hearing loss, bilateral, I10 - Essential (primary) hypertension, I21.4 - Non-ST elevation (NSTEMI) myocardial infarction, R94.39 - Abnormal result of other cardiovascular function study UA CC w/rflx Micro + Cult 3 Months E78.5 - Hyperlipidemia, unspecified, G25.0 - Essential tremor, H26.9 - Unspecified cataract, H91.93 - Unspecified hearing loss, bilateral, I10 - Essential (primary) hypertension, I21.4 - Non-ST elevation (NSTEMI) myocardial infarction, R94.39 - Abnormal result of other cardiovascular function study Vitamin D 25-OH Total 3 Months E78.5 - Hyperlipidemia, unspecified, G25.0 - Essential tremor, H26.9 - Unspecified cataract, H91.93 - Unspecified hearing loss, bilateral, I10 - Essential (primary) hypertension, I21.4 - Non-ST elevation (NSTEMI) myocardial infarction, R94.39 - Abnormal result of other cardiovascular function study NT Pro B Type Natriuretic Pept 3 Months E78.5 - Hyperlipidemia, unspecified, G25.0 - Essential tremor, H26.9 - Unspecified cataract, H91.93 - Unspecified hearing loss, bilateral, I10 - Essential (primary) hypertension, I21.4 - Non-ST elevation (NSTEMI) myocardial infarction, R94.39 - Abnormal result of other cardiovascular function study
== END 2025-08-18 10:25 | disposition home or self-care (01) ==
LOC: HO.HMCH 09:22
DX: I10 Essential (primary) hypertension (principal); H91.93 Unspecified hearing loss, bilateral; H26.9 Unspecified cataract; K83.1 Obstruction of bile duct; R35.1 Nocturia; G25.0 Essential tremor; E87.5 Hyperkalemia; D64.9 Anemia, unspecified; E78.5 Hyperlipidemia, unspecified

== ENCOUNTER → 2025-08-18 09:21 | Outpatient (BNVA) | payer MEDICARE, MEDICAID, SELFPAY | DX: I10 Essential (primary) hypertension (principal); I25.10 Atherosclerotic heart disease of native coronary artery without angina pectoris; H91.93 Unspecified hearing loss, bilateral; R35.1 Nocturia; E87.5 Hyperkalemia; D64.9 Anemia, unspecified; R35.0 Frequency of micturition; H26.9 Unspecified cataract; K83.1 Obstruction of bile duct; G25.0 Essential tremor; E78.5 Hyperlipidemia, unspecified | CPT/HCPCS: 99212 ==

== ENCOUNTER 2025-08-26 09:19 | Outpatient (REF) | payer MEDICARE, MEDICAID, SELFPAY ==
[2025-08-26 11:20] LABS: Anion Gap 9 (12-20); Blood Urea Nitrogen 27 mg/dL (9-16); Calcium 9.4 mg/dL (8.4-10.2); Carbon Dioxide 30 mmol/L (22-29); Chloride 108 mmol/L (96-108); Cholesterol 103 mg/dL (<200); Estimated Glomerular Filt Rate > 60; HDL Cholesterol 40 mg/dL (>40); Potassium 4.7 mmol/L (3.3-5.1); Sodium 142 mmol/L (135-145); Triglycerides 48 mg/dL (<150)
[2025-08-26 11:51] LABS: Folate 11.9 ng/mL (> or = 4.0); Vitamin B12 532 pg/mL (200-900)
== END 2025-08-26 09:20 | disposition home or self-care (01) ==
LOC: HO.HMGCLDS 09:19
DX: Z01.818 Encounter for other preprocedural examination (principal); Z00.00 Encounter for general adult medical examination without abnormal findings; Z13.1 Encounter for screening for diabetes mellitus; I10 Essential (primary) hypertension; E87.5 Hyperkalemia; G25.0 Essential tremor; H26.9 Unspecified cataract; R35.1 Nocturia
CPT/HCPCS: 36415; 80048; 80061; 82607; 82746; 83036

== ENCOUNTER 2025-09-02 11:04 | Outpatient (AMB) | payer MEDICARE, MEDICAID, SELFPAY ==
--- NOTE | 2025-09-02 11:07 | MHC.PC.OV ---
Vital Signs 09/02/25 11:08 Height 6 ft 3 in Weight 239 lb 8 oz BMI 29.9 BP 120/46 L Blood Pressure Location Lt brachial Position Sitting Respiration 18 Pulse 55 Pulse Source Pulse Oximeter Temp 97.1 F Temp Source Temporal Artery Scan Pulse Oximetry (%) 97 Oxygen Delivery Method Room Air Intake Visit Reasons: Cataract 10/07 right eye Manager Of Revenue Required: No Accompanied by: Self / Same As Patient Allergies Penicillins (PENICILLINS) Allergy (Severe, Verified 09/06/25 11:00) ANAPHYLAXIS penicillin V Allergy (Unknown, Verified 09/06/25 11:00) anaphylaxis Medication List - Last Reconciled 09/02/25 by KEYON Denton acetaminophen 325 mg PO Q6H PRN amlodipine (Norvasc) 10 mg PO DAILY aspirin 81 mg PO DAILY atorvastatin 20 mg PO BEDTIME ibuprofen (Advil) 200 mg PO Q8H PRN losartan 50 mg PO DAILY metoprolol tartrate 50 mg PO BID multivitamin 1 tab PO DAILY Tobacco use date assessed: 09/02/25 Fall risk assessment: 1 Fall in past year Last assessed Fall Risk: 09/02/25 Dental Screening Dental Screen Date: 09/02/25 Did you have a dental visit in the last 12 months?: No Did you have a dental problem in the last 6 months where you did not have access to dental care?: No Was dental information given to patient?: No HPI Cataract 10/07 right eye HPI Details The patient is an 80-year-old male presenting for pre-operative clearance for cataract surgery. His right eye surgery is scheduled for October 07, and the left eye surgery will follow in November. Past surgical history is significant for back surgery, elbow and wrist surgery, cholecystectomy, hiatal hernia repair, and a stent placement. The patient has tolerated anesthesia well during these prior procedures. The patient has a history of chronic stable anemia, which is being monitored. Lab workup showed normal B12 and folate levels, suggesting it is likely anemia of chronic disease. A previously elevated potassium level has since normalized to 4.7. He reports arthritis, primarily affecting both shoulders. The patient also experiences some peripheral edema in his legs, which improves with recumbency overnight. He uses compression stockings for relief. The patient is a former smoker and reports some weight gain since quitting. Surgery/location: Dr Cast[facility] [place] Fax number is [phone] Anesthesia: Mac. The patient reports multiple surgery using general anesthesia without any issues. The patient will be getting a less potent anesthesia for this procedure. Patient denies any post surgery hypothermia or clotting disorder and he is not on any blood thinners. The patient is taking ibuprofen as needed for arthritis and was instructed to hold this medication for 48 hours prior to procedure and may resume 24 hours after procedure. Medical history is significant for HTN, cataract of both eyes, hearing loss, obstructive bile duct, NSTEMI, HLD, anemia The patient denies chest pain, shortness of breath, heart palpitation or dizziness [facility] Medical History NSTEMI (non-ST elevated myocardial infarction) HTN (hypertension) Surgical History S/P cholecystectomy History of repair of hiatal hernia H/O elbow surgery H/O wrist surgery Previous back surgery Social History Household Members: Significant Other Housing: Apartment Are you a primary acute care physical therapist to a significant other at home: No Do you presently have visiting nurse or other home services: No Alcohol intake: former Comment: patient refusing fall precautions (bed alarm) Patient Tobacco Use Status: Former Tobacco user Tobacco use type: Cigarette Cigarettes Per Day: 3 Years Smoked: 64 e-Cigarette/Vaping Use: Never Used Second Hand Smoke Exposure: Yes Advance Directives Date on File: 05/01/25 service: No Cognitive needs: No Hearing needs: No Vision needs: Yes Questionnaire Thrive Questionnaire Date Thrive assessed: 06/21/25 I am a: Patient What is your living situation today?: I have a place to live, but I am worried about losing it in the future Within the past 12 months, did the food you bought not last and you didn't have the money to get more?: I choose not to answer this question Within the past 12 months, did you worry whether your food would run out before you got money to buy more?: I choose not to answer this question Do you have trouble paying for medicines?: No Do you have trouble getting transportation to medical appointments?: I choose not to answer this question Do you have trouble paying your heating and electricity bill?: No Do you have trouble taking care of your child, family member or friend?: I choose not to answer this question Do you have trouble with day-to-day activities such as bathing, preparing meals, shopping, managing finances, etc.?: No Are you currently unemployed and looking for a job?: No Are you interested in more education?: No Currently or been in a relationship where the following occur: No concerns reported THRIVE Score: 1 TREASURE-7 AMB Questionnaire TREASURE-7 Date TREASURE - 7 assessed: 06/28/25 Source: Developed by Drs. Darrick Calderon, Josee Carlton, Julio César Sahu and colleagues, with an educational serenity from [employer]. Review of Systems Const Denies body aches, Denies chills, Denies fever(s), Denies headache(s) and Denies poor appetite Eyes Reports no additional complaints ENT Denies dysphagia, Denies dizziness, Denies headache(s), Reports hearing loss (Bilateral) and Denies odynophagia Card Denies chest pain, Denies syncope, Denies edema, Denies irregular heart rhythm, Reports leg edema, Denies lightheadedness and Denies dyspnea Resp Denies cough and Denies dyspnea GI Denies abdominal pain, Denies constipation, Denies dysphagia, Denies diarrhea, Denies nausea, Denies odynophagia and Denies vomiting Reports no additional complaints Musc Reports no additional complaints and Denies abnormal gait Skin/Breast Reports system reviewed and no additional complaints, except as documented Neuro Denies abnormal gait, Denies dizziness, Denies syncope, Denies headache(s) and Reports tremor(s) (Upper extremities right greater than left) Psych Reports no additional complaints Physical exam (Primary Care) Vital Signs: Last Vital Signs Temp 97.1 F 09/02/25 11:08 Pulse 55 09/02/25 11:08 Resp 18 09/02/25 11:08 BP 120/46 L 09/02/25 11:08 Pulse Ox 97 09/02/25 11:08 Oxygen Delivery Method Room Air 09/02/25 11:08 BMI result Body Mass Index 29.9 Tobacco/Smoking Status: Tobacco use Status Tobacco use date assessed 09/02/25 09/02/25 11:18 Patient Tobacco Use Status Former Tobacco user 09/02/25 11:18 Tobacco use type Cigarette 09/02/25 11:18 e-Cigarette/Vaping Use Never Used 09/02/25 11:18 Thrive Assessment: Date of Thrive Assessment Date Thrive assessed 06/21/25 09/02/25 11:18 Currently or been in a relationship where the following occur: No concerns reported Const General: cooperative, healthy appearing, comfortable and no acute distress Orientation/consciousness: patient oriented x3 HENMT Head: Yes normocephalic Ears: hearing grossly normal bilaterally General nose exam: Normal external nose present Eyes General: appearance normal, both eyes and all related structures Conjunctivae: conjunctivae normal Pupils: Equal, round and reactive pupils present Neck Neck: Yes full ROM and Yes no lymphadenopathy Resp Effort & Inspection: normal respiratory effort Auscultation: clear to auscultation bilaterally, no crackles, no rales, no rhonchi and no wheezes Cardio Rate: regular rate Rhythm: regular rhythm Heart sounds: S1 normal heart sound present and S2 normal heart sound present Peripheral pulses: Peripheral pulses 2+ throughout GI Palpation (GI): Soft to palpation and nontender Auscultation: normal bowel sounds General: Yes no CVA tenderness Back/Spine/Pelvis Back: no CVA tenderness Skin General skin exam: no rashes or lesions noted Neuro General: patient oriented x3 Cranial nerves: Yes Equal, round and reactive pupils present and Yes Nystagmus not present Gait exam (Neuro): Normal gait present Motor exam (neuro): 5/5 motor strength present throughout Extrem General: Yes normal to inspection, Yes full ROM and No edema Right upper extremity: full ROM (Tremors with activity) Left upper extremity: full ROM (Tremors with activity) Right lower extremity: full ROM and edema Details: 2+ Left lower extremity: edema Details: 2+ Psych Affect: normal affect Attitude: cooperative Insight: Good insight present (Psych) Judgement: Good judgement present (Psych) Results Reviewed Results Reviewed: Laboratory Tests 08/12/25 08/12/25 08/26/25 10:05 10:06 09:36 WBC 7.1 RBC 3.93 L Hgb 12.6 L Hct 38.4 L MCV 97.7 MCH 32.1 MCHC 32.8 RDW 13.1 Plt Count 226 D Sodium 142 Potassium 4.7 Chloride 108 Carbon Dioxide 30 H Anion Gap 9 L BUN 27 H Creatinine 0.88 Estimated GFR > 60 Random Glucose 96 Estimat Average Glucose 111 Hemoglobin A1c % 5.5 Calcium 9.4 Triglycerides 48 Cholesterol 103 LDL Cholesterol, Calc 54 HDL Cholesterol 40 L Vitamin B12 532 Folate 11.9 Urine Color Yellow Urine Appearance Clear Urine pH 7.0 Ur Specific Boody 1.020 Urine Protein Negative Urine Glucose (UA) Negative Urine Ketones Negative Urine Blood Negative Urine Nitrite Negative Ur Leukocyte Esterase Negative Coding Level of Care Code Est Pt Level 4 (76559) Diagnoses Preoperative clearance Z01.818 Essential hypertension I10 Hypertension type: essential hypertension Bilateral hearing loss, unspecified hearing loss type H91.93 Hearing loss type: unspecified Laterality: bilateral Cataract of both eyes, unspecified cataract type H26.9 Cataract type: unspecified 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 Reviewed with the patient that no surgery is completely free of risk and that this examination is to assist the surgeon in reviewing informed consent. (2) HTN (hypertension): Code(s): I10 - Essential (primary) hypertension Category: Medical Qualifiers: Hypertension type: essential hypertension Qualified Code(s): I10 - Essential (primary) hypertension Plan: Blood pressure 120/46 systolic goal less than 150 mm hg due to wide pulse pressure and age Reinforced low-salt diet and adequate hydration Continue amlodipine 10 mg, losartan 50 mg daily, metoprolol tartrate 50 mg b.i.d. (3) Hearing loss: Code(s): H91.90 - Unspecified hearing loss, unspecified ear Category: Medical Qualifiers: Hearing loss type: unspecified Laterality: bilateral Qualified Code(s): H91.93 - Unspecified hearing loss, bilateral Plan: The patient had a hearing aids prior that were worn out and stopped working. He is looking to be re-evaluated and prescribed new hearing aids. ENT referral was placed (4) Cataract of both eyes: Code(s): H26.9 - Unspecified cataract Category: Medical Qualifiers: Cataract type: unspecified Qualified Code(s): H26.9 - Unspecified cataract Plan: Initially the patient eye surgery was scheduled for 09/09/2025. This was rescheduled to October [id number] for right eye and he is waiting for follow up decision on his other eye. (5) Obstruction of bile duct: Code(s): K83.1 - Obstruction of bile duct Category: Medical Plan: GI referral was placed for follow up on stent placement. (6) Nocturia: Code(s): R35.1 - Nocturia Category: Medical Plan: The patient experiences frequent urination, likely related to benign prostatic hyperplasia, with normal prostate-specific antigen levels. The condition is monitored, and no immediate intervention is required unless symptoms worsen. Encouraged the patient to stop drinking fluids closed to bedtime. Urology referral was placed (7) Benign essential tremor syndrome: Code(s): G25.0 - Essential tremor Category: Medical Plan: The patient will undergo a series of follow-up appointments and tests to address his multiple health concerns. A referral to neurology is planned to evaluate the tremors, which are suspected to be benign essential tremors (8) Serum potassium elevated: Code(s): E87.5 - Hyperkalemia Category: Medical Plan: Previous potassium levels are slightly elevated. The patient was advised to maintain hydration and avoid high-potassium foods. Rechecked potassium has normalized at 4.7. (9) Anemia: Code(s): D64.9 - Anemia, unspecified Category: Medical Qualifiers: Anemia type: unspecified type Qualified Code(s): D64.9 - Anemia, unspecified Plan: Normocytic, normochromic anemia stable. H&H 12.6/38.4, we will continue to monitor CBC regularly (10) HLD (hyperlipidemia): Code(s): E78.5 - Hyperlipidemia, unspecified Category: Medical Qualifiers: Hyperlipidemia type: unspecified Qualified Code(s): E78.5 - Hyperlipidemia, unspecified Plan: Triglycerides 48, total cholesterol 103, LDL 54, HDL 40 Reinforced low-cholesterol diet and activity as tolerated Continue atorvastatin 20 mg at bedtime We will repeat lipid panel in 3 months
[2025-09-02 11:08] VITALS: BP 120/46; PULSE 55; RESP 18; TEMP 36.2; O2SAT 97; BMI 29.9
== END 2025-09-02 12:10 | disposition home or self-care (01) ==
LOC: HO.HMCH 11:05
DX: I10 Essential (primary) hypertension (principal); K83.1 Obstruction of bile duct; Z01.818 Encounter for other preprocedural examination; H91.93 Unspecified hearing loss, bilateral; H26.9 Unspecified cataract; R35.1 Nocturia; G25.0 Essential tremor; E87.5 Hyperkalemia; D64.9 Anemia, unspecified; E78.5 Hyperlipidemia, unspecified

== ENCOUNTER → 2025-09-02 11:04 | Outpatient (BNVA) | payer MEDICARE, MEDICAID, SELFPAY | DX: Z01.818 Encounter for other preprocedural examination (principal); H26.9 Unspecified cataract; I10 Essential (primary) hypertension; H91.93 Unspecified hearing loss, bilateral; K83.1 Obstruction of bile duct; R35.1 Nocturia; G25.0 Essential tremor; E87.5 Hyperkalemia; D64.9 Anemia, unspecified; E78.5 Hyperlipidemia, unspecified | CPT/HCPCS: 99212 ==

== ENCOUNTER 2025-09-06 10:28 | Outpatient (AMB) | payer MEDICARE, MEDICAID, SELFPAY ==
--- NOTE | 2025-09-06 10:57 | MHC.OFFVIS ---
Vital Signs 09/06/25 10:59 Height 6 ft 3 in Weight 238 lb 1.588 oz BMI 29.8 BP 120/58 L Blood Pressure Location Lt brachial Position Sitting Pulse 58 Intake Visit Reasons: S/p ERCP Intake Note: B[place]ark presents in the office as a follow up for ERCP. CC: States that he doesnt feel the stent and he is not having any concerns today! Environmental Systems Coordinator Required: No Allergies Penicillins (PENICILLINS) Allergy (Severe, Verified 09/06/25 11:00) ANAPHYLAXIS penicillin V Allergy (Unknown, Verified 09/06/25 11:00) anaphylaxis HPI HPI S/p ERCP: Details: 80 yr old m here for f/u He had ERCP for cholangitis 04/28 A lot of stone debris and sludge removed he had repeat ERCP with stent exchange due to ongoing sludge and debris He feels well today no abdo pain no n/v no diarrhea or bowel issues EXAM: GENERAL: The patient is well developed and nontoxic. VITAL SIGNS:see workflow HEENT: Nonicteric sclerae, PERRLA, EOMI. Oropharynx clear. Moist mucous membranes. Conjunctivae appear well perfused. No thyroid mass. CHEST: Chest wall is nontender. HEART: Regular rate and rhythm without murmurs. LUNGS: wheeze in lungs ABDOMEN: Soft, positive bowel sounds, nontender, no organomegaly.no flank tenderness SKIN: No rash, no excessive bruising, petechiae, or purpura. NEUROLOGIC: Cranial nerves II-XII intact without motor/sensory deficit. mild tremor Psych: normal affect A?P: 1/ choledocholithiasis s/p eRCP with stent PLAN: 1/ repeat ERCP in few months, if still has sludge then may need covered biliary stent [facility] Medical History NSTEMI (non-ST elevated myocardial infarction) HTN (hypertension) Surgical History S/P cholecystectomy History of repair of hiatal hernia H/O elbow surgery H/O wrist surgery Previous back surgery Social History Household Members: Significant Other Housing: Apartment Are you a primary spiritual care coordinator to a significant other at home: No Do you presently have visiting nurse or other home services: No Alcohol intake: former Comment: patient refusing fall precautions (bed alarm) Patient Tobacco Use Status: Former Tobacco user Tobacco use type: Cigarette Cigarettes Per Day: 3 Years Smoked: 64 e-Cigarette/Vaping Use: Never Used Second Hand Smoke Exposure: Yes Advance Directives Date on File: 05/01/25 service: No Cognitive needs: No Hearing needs: No Vision needs: Yes Physical Exam Vital Signs: Last Vital Signs Pulse 58 09/06/25 10:59 BP 120/58 L 09/06/25 10:59 BMI result Body Mass Index 29.8 Assessment & Plan Assessment & Plan (1) Obstruction of bile duct: Code(s): K83.1 - Obstruction of bile duct Category: Medical Plan: as above Orders: Referrals GI Procedure Notification K83.1 - Obstruction of bile duct Coding Level of Care Code Est Pt Level 3 (49605) Diagnoses 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
[2025-09-06 10:59] VITALS: BP 120/58; PULSE 58; BMI 29.8
== END 2025-09-06 11:50 | disposition home or self-care (01) ==
LOC: HO.HGI 10:29
PROVIDERS: Visit Provider Internal Medicine Gastroenterology
DX: K83.1 Obstruction of bile duct (principal)
CPT/HCPCS: 99213

== ENCOUNTER → 2025-09-06 10:28 | Outpatient (BNVA) | payer MEDICARE, MEDICAID, SELFPAY | PROVIDERS: Visit Provider Internal Medicine Gastroenterology | DX: K83.1 Obstruction of bile duct (principal); Z98.890 Other specified postprocedural states; Z87.891 Personal history of nicotine dependence | CPT/HCPCS: 99212 ==

== ENCOUNTER 2025-09-20 07:49 | Outpatient (AMB) | payer MEDICARE, SELFPAY ==
--- NOTE | 2025-09-20 08:01 | A.OFFVIS_ITS ---
Intake Visit Reasons: nocturia Intake Note: Patient Is Present for Nocturia/Hx of UTI Urology Med: None Antibiotic Allergy: Penicillin Blood Thinner: Aspirin PVR: 63 Ventilating Engineer Required: No Sign Installer: Sign Installer Present Accompanied by: Spouse Allergies Penicillins (PENICILLINS) Allergy (Severe, Verified 09/20/25 08:39) ANAPHYLAXIS penicillin V Allergy (Unknown, Verified 09/20/25 08:39) anaphylaxis Medication List - Last Reconciled 09/20/25 by ISIDRO Arana acetaminophen 325 mg PO Q6H PRN amlodipine (Norvasc) 10 mg PO DAILY aspirin 81 mg PO DAILY atorvastatin 20 mg PO BEDTIME ibuprofen (Advil) 200 mg PO Q8H PRN losartan 50 mg PO DAILY metoprolol tartrate 50 mg PO BID multivitamin 1 tab PO DAILY HPI Comments Details: Bismark is a very pleasant 80-year-old male patient of Dr. Villasenor who was accompanied by his significant other at today's office visit. He has a past medical history of NSTEMI and hypertension. He presents to the office today as a new patient for nocturia. In discussion with the patient today he reports noting over the last 4 years he has been having episodes of nocturia up to 5 times per night. 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 When asked he does report a history of snoring as well as fatigue upon wakening. We did discussed potential for sleep apnea in relation to nocturia. In review of patient's chart it appears a PSA was ordered and obtained. These results were communicated with the patient and his significant other today. 08/28 1.0. He otherwise denies any bothersome urinary issues. He denies incontinence, hematuria, dysuria, foul smelling urine, changes to urinary stream, flank pain, fever, and or chills. He does report urinary urgency and frequency throughout the day however does not find this issue bothersome and fe els he is managing these symptoms well independently. In office urinalysis results reviewed with the patient today. PVR 63 mL. He discusses not knowing his family history as he is adopted. We did discuss obtaining sleep study as well as retroperitoneal ultrasound for further assessment evaluation. We also discussed lifestyle modifications to assist with nocturia. All questions were answered. He otherwise offers no other issues or concerns at this time. [facility] Medical History NSTEMI (non-ST elevated myocardial infarction) HTN (hypertension) Surgical History S/P cholecystectomy History of repair of hiatal hernia H/O elbow surgery H/O wrist surgery Previous back surgery Social History Household Members: Significant Other Housing: Apartment Are you a primary patient care assistant to a significant other at home: No Do you presently have visiting nurse or other home services: No Alcohol intake: former Comment: patient refusing fall precautions (bed alarm) Patient Tobacco Use Status: Former Tobacco user Tobacco use type: Cigarette Cigarettes Per Day: 3 Years Smoked: 64 e-Cigarette/Vaping Use: Never Used Second Hand Smoke Exposure: Yes Advance Directives Date on File: 05/01/25 service: No Cognitive needs: No Hearing needs: No Vision needs: Yes Review of Systems Const All systems reviewed & are unremarkable except as noted in HPI and below Physical Exam Const General: cooperative, healthy appearing, comfortable, no acute distress, well developed, alert and awake Orientation/consciousness: patient oriented x3 Limitations: no limitations HEENT Head: Yes normal to inspection, Yes normocephalic and Yes atraumatic Ears: hearing grossly normal bilaterally Eyes General: appearance normal, both eyes and all related structures Neck Neck: Yes normal visual inspection and Yes trachea midline Chest Chest palpation & inspection: normal inspection of the chest Resp Effort & Inspection: normal respiratory effort and able to speak in complete sentences Cardio Rate: regular rate GI Inspection: Yes normal to inspection General: Yes no CVA tenderness Back/Spine/Pelvis Back: no CVA tenderness Skin General skin exam: no rashes or lesions noted Neuro General: patient oriented x3 Extrem General: Yes normal to inspection Psych Appearance: grossly normal and well kempt Mental Status: mental status grossly normal Speech and movement: Normal speech and movement present and Clear speech present Affect: normal affect Attitude: cooperative Thought process: Normal thought process present Thought content: Normal thought content present Insight: Fair insight present (Psych) Judgement: Fair judgement present (Psych) Office Procedures Post Void Residual Post Residual Void Post Void Residual (PVR): 63 [id number] Void Residual by ultrasound Results AMB Urinalysis, Automated UA Leukoctes 0 Aftab/uL Last Edit by Jocelyn Antunez, A on 09/20/25 08:17 UA Nitrite Negative Last Edit by Jocelyn Antunez, RMA on 09/20/25 08:17 UA Urobilinogen 0.2 mg/dL Last Edit by Jocelyn Antunez, RMA on 09/20/25 08:1 7 UA Protein 0 mg/dL Last Edit by Jocelyn Antunez, RMA on 09/20/25 08:17 UA pH 6.0 Last Edit by Jocelyn Antunez, RMA on 09/20/25 08:17 UA Blood 0 Sanjay/uL Last Edit by Jocelyn Antunez, A on 09/20/25 08:17 UA Specific Reserve 1.015 Last Edit by Jocelyn Antunez, A on 09/20/25 08: 17 UA Ketone Negative Last Edit by Jocelyn Antunez, A on 09/20/25 08:17 UA Bilirubin 0 mg/dL Last Edit by Jocelyn Antunez, RMA on 09/20/25 08:17 UA Glucose 0 mg/dL Last Edit by Jocelyn Antunez, A on 09/20/25 08:17 Results Reviewed Results Reviewed: Laboratory Last Values Urine pH (Auto) 6.0 09/20/25 08:16 Specific Reserve (Auto) 1.015 09/20/25 08:16 Urine Protein (Auto) 0 mg/dL 09/20/25 08:16 Glucose (UA)(Auto) 0 mg/dL 09/20/25 08:16 Urine Ketones (Auto) Negative 09/20/25 08:16 Urine Blood (Auto) 0 Sanjay/uL 09/20/25 08:16 Urine Nitrite (Auto) Negative 09/20/25 08:16 Urine Bilirubin (Auto) 0 mg/dL 09/20/25 08:16 Urine Urobilinogen (Auto) 0.2 mg/dL 09/20/25 08:16 Leukocyte Esterase (Auto) 0 Aftab/uL 09/20/25 08:16 Assessment & Plan Assessment & Plan (1) Nocturia: Code(s): R35.1 - Nocturia Category: Medical (2) Urinary frequency: Code(s): R35.0 - Frequency of micturition Category: Medical Plan In office urinalysis results reviewed with the patient today; as noted above. PVR 63 mL. We did discussed potential causes of nocturia as well as further treatment options and risks and benefits of these treatment options. Most recent PSA results reviewed with the patient today; as noted above. All questions were answered. We did discussed the importance of limiting fluids 2-3 hours prior to bed to decrease episodes of nocturia. We discussed bladder triggers and irritants. Will obtain retroperitoneal ultrasound for further assessment evaluation. Will obtain home sleep study for further assessment evaluation. We did discussed potential for near future in office cystoscopy and or urodynami cs if symptoms persist and/or worsen. Follow-up in 3 months with imaging and sleep study and PVR; or sooner with any issues, concerns, and or questions. Orders: Orders AMB Urinalysis Automated Today Z13.9 - Encounter for screening, unspecified AMB Post Void Residual by ultrasound Today R35.1 - Nocturia RT home sleep study Today R35.1 - Nocturia US retroperitoneal comp Today R35.1 - Nocturia Patient Instructions: The patient had an opportunity to ask questions regarding the treatment plan. All questions were answered. Physical exam, labs, and imaging were discussed and reviewed in detail. As well as risks, benefits, and discussion of treatment choices. No major barriers to understanding were identified. The patient expressed understanding and agreement with the above treatment plan. The patient was made aware they should contact our office by phone for worsening of their current condition, the appearance of new symptoms, or with any ques tions or concerns. Compliance is encouraged with any medications and follow up testing that is ordered. It is a privilege to be allowed the opportunity to participate in? your urological care.? Again, if you have any questions or concerns If you have any questions or concerns please do not hesitate to contact me. The office is [phone]. This note is constructed using voice recognition software. While every effort has been made to ensure accuracy mineral surveying technician errors may have been included. Yours sincerely, ISIDRO Arana Coding Level of Care Code New Pt Level 3 (67096) Diagnoses Nocturia R35.1 Urinary frequency R35.0 CPT Codes Post Residual Void - PVR CPT Code: 64824-Npln Void Residual by ultrasound ([id number])
== END 2025-09-20 08:41 | disposition home or self-care (01) ==
LOC: HO.HUSH 07:50
PROVIDERS: Visit Provider Nurse Practitioner Family
DX: R35.1 Nocturia (principal); R35.0 Frequency of micturition; Z13.9 Encounter for screening, unspecified
CPT/HCPCS: 99203

== ENCOUNTER → 2025-09-20 07:49 | Outpatient (BNVA) | payer MEDICARE, SELFPAY | PROVIDERS: Visit Provider Nurse Practitioner Family | DX: R35.1 Nocturia (principal); R35.0 Frequency of micturition; Z13.9 Encounter for screening, unspecified | CPT/HCPCS: 51798; 81003; 99202 ==